=== PATIENT | female | born 1955 ===

== ENCOUNTER → 2020-09-27 10:50 | Outpatient (BNVA) | payer MEDICARE, MEDICAID, SELFPAY | PROVIDERS: PCP Internal Medicine; Visit Provider Internal Medicine Cardiovascular Disease | DX: R00.1 Bradycardia, unspecified (principal); I51.89 Other ill-defined heart diseases; I25.10 Atherosclerotic heart disease of native coronary artery without angina pectoris | CPT/HCPCS: 93005; 99212 ==

== ENCOUNTER 2021-02-05 08:11 | Outpatient (REF) | payer MEDICARE, MEDICAID, SELFPAY ==
[2021-02-11 15:22] LABS: HPV mRNA E6/E7 rflx Not Detected (Not Detected)
== END 2021-02-05 08:12 | disposition home or self-care (01) ==
LOC: HO.LAB 08:11
PROVIDERS: PCP Internal Medicine; Visit Provider Obstetrics & Gynecology
DX: Z01.419 Encounter for gynecological examination (general) (routine) without abnormal findings (principal)
CPT/HCPCS: 87624; 88142

== ENCOUNTER 2021-02-06 17:18 | Outpatient (REF) | payer MEDICARE, MEDICAID, SELFPAY | END 2021-02-06 17:19 | disposition home or self-care (01) | LOC: HO.LNP 17:18 | PROVIDERS: Visit Provider Obstetrics & Gynecology | DX: Z13.89 Encounter for screening for other disorder (principal) ==

== ENCOUNTER 2021-02-27 07:58 | Outpatient (REF) | payer MEDICARE, MEDICAID, SELFPAY ==
--- NOTE | ~2021-02-27 | MM_ITS ---
EXAMINATION: BONE DENSITOMETRY CLINICAL INDICATION: Menopausal and female climacteric states. COMPARISON: Baseline BD dated 07/10/2009. TECHNIQUE: Using a Micro[employer] DXA System (software version: 13.1) manufactured by [employer], dual-energy x-ray absorptiometry was performed of the lumbar spine and left hip. The images are of good technical quality. Summary results are attached. FINDINGS: AP SPINE L1-L4: Current: BMD 1.143 g/cm2, Z-score 0.7, T-score -0.3, normal, 2.1% increase from baseline (<5% change is not significant). Baseline: BMD 1.119 g/cm2. LEFT FEMUR, NECK: Current: BMD 0.770 g/cm2, Z-score -0.8, T-score -1.9, osteopenia. Baseline: BMD 0.890 g/cm2. LEFT FEMUR, TOTAL: Current: BMD 0.965 g/cm2, Z-score 0.4, T-score -0.3, normal, 8.0% decrease from baseline (<5% change is not significant). Baseline: BMD 1.049 g/cm2. IDENTIFIED RISK FACTORS: Rheumatoid arthritis. Secondary osteoporosis (early menopause). HISTORY OF FRACTURE: None listed. MEDICATIONS: None listed. MM/XR DEXA axial skeleton IMPRESSION: 1. DIAGNOSIS: Osteopenia based on the lowest T-score value of -1.9 in the femoral neck applying World Health Organization criteria. 2. 10-YEAR FRACTURE RISK PREDICTION, FRAX: Major osteoporotic fracture (clinical spine, forearm, hip or shoulder) 7.2%. Hip fracture 1.1%. 3. Treatment Recommendations: NOF guidelines recommend consideration for treatment in postmenopausal women and men age 50 and older presenting with the following: -A hip or vertebral (clinical or morphometric) fracture. -T-score less than or equal to -2.5 at the femoral neck or spine after appropriate evaluation to exclude secondary causes. -Low bone mass at the hip or spine and a 10-year fracture probability by FRAX of greater than or equal to 3% for hip fracture or greater than or equal to 20% for major osteoporotic fracture based on the [place] adapted WHO algorithm. 4. Other Recommendations: All treatment decisions require clinical judgment and consideration of individual patient factors, including patient preferences, comorbidities, previous drug use, risk factors not captured in the FRAX model (e.g. frailty, falls, vitamin D deficiency, increased bone turnover, interval significant decline in bone density) and possible under or overestimation of fracture risk by FRAX. Additional medical evaluation for secondary cause of low bone mineral density may be appropriate. FUTURE SCAN RECOMMENDATION: People with diagnosed cases of osteoporosis or at high risk for fracture should have regular bone mineral density tests. For patients eligible for Medicare, routine testing is allowed once every 2 years. The testing frequency can be increased to one year for patients who have rapidly progressing disease, those who are receiving or discontinuing medical therapy to restore bone mass, or have additional risk factors.
== END 2021-02-27 07:59 | disposition home or self-care (01) ==
LOC: HO.MAMMO 07:58
PROVIDERS: Visit Provider Obstetrics & Gynecology
DX: M81.8 Other osteoporosis without current pathological fracture (principal); N95.1 Menopausal and female climacteric states; M06.9 Rheumatoid arthritis, unspecified
CPT/HCPCS: 77080

== ENCOUNTER → 2021-03-25 11:33 | Outpatient (BNVA) | payer MEDICARE, MEDICAID, SELFPAY | PROVIDERS: PCP Internal Medicine; Visit Provider Obstetrics & Gynecology | DX: M85.80 Other specified disorders of bone density and structure, unspecified site (principal) | CPT/HCPCS: Q3014 ==

== ENCOUNTER 2021-08-02 18:10 | Inpatient (IN) | payer MEDICARE, MEDICAID, SELFPAY ==
--- NOTE | ~2021-08-02 | CT_ITS ---
EXAMINATION: CT HEAD WITHOUT CONTRAST (STROKE PROTOCOL) CLINICAL INFORMATION: Stroke protocol. Right leg weakness. COMPARISON: No similar priors. TECHNIQUE: Contiguous axial imaging was performed from the skull base to vertex without intravenous administration of contrast. This CT examination was performed using dose optimization techniques as appropriate, variously including the following: *Automated exposure control *Adjustment of mA and/or kV according to patient size (this includes techniques or standardized protocols for targeted exams where dose is matched to indication/reason for exam; i.e. extremities or head) *Use of iterative reconstruction technique DLP: 790 mGy-cm FINDINGS: There is no intracranial hemorrhage, hematoma, or extra-axial fluid collection. The ventricles are normal in size. There is no hydrocephalus, edema, or mass effect. The alvarado-white matter differentiation appears symmetric. There is no acute infarct or mass lesion. There is mild chronic microangiopathy with mineralization of the basal ganglia. The calvarium appears intact. There is no pneumocephalus or orbital emphysema. The visualized sinuses and middle ears and mastoid air cells show no significant mucosal thickening. There are no air-fluid levels. There are numerous indeterminate small calcifications in both parotid glands. CT/CT head for stroke IMPRESSION: 1. No acute intracranial pathology. 2. Mild chronic microangiopathy. 3. Indeterminate calcifications in both parotid glands. This critical result was discussed with Stormy AGUILERA at 7:12 PM on 08/02/2021. It was ascertained that the content and urgency of the report was understood at the time of direct communication.
--- NOTE | ~2021-08-02 | MR_ITS ---
MRI OF THE BRAIN WITHOUT IV CONTRAST MRA HEAD WITHOUT IV CONTRAST INDICATION: Stroke. COMPARISON: Head CT 08/02/2021. TECHNIQUE: Multiplanar multisequence MR imaging of the brain was obtained without IV contrast. Additionally, a noncontrast MRA of the head was obtained. Vascular post-processing, including 2-dimensional and 3-dimensional reformatted images were created and reviewed on an independent workstation under concurrent physician supervision. Stenoses are graded per criteria similar to NASCET. FINDINGS: MRI BRAIN: There is an acute infarct within the left parasagittal frontal lobe in the left JOSE ALBERTO territory with cytotoxic edema resulting in local cerebral sulcal effacement. There are additional smaller punctate acute to subacute infarcts within the left frontoparietal lobe and the right genu of the corpus callosum. There is also a punctate acute infarct within the left occipital lobe. No evidence of hemorrhagic transformation. There is no hydrocephalus, extra-axial surface collection, or herniation. The major flow voids at the skull base are preserved. The cerebellar tonsils are normally positioned. The cerebellum and brainstem are normal. The craniocervical junction is normal. Osseous marrow signal intensity is homogenous. The visualized soft tissues are unremarkable. MRA HEAD: There are no proximal large vessel occlusions. The distal intracranial arterial vasculature is not included in the field of view of the [id number] MRA of the head. The proximal anterior cerebral arteries are patent. MR/MR head/brain wo con IMPRESSION: - There is an acute infarct within the left parasagittal frontal lobe in the left JOSE [place]BERTO territory with cytotoxic edema resulting in local cerebral sulcal effacement. There are additional smaller punctate acute to subacute infarcts within the left frontoparietal lobe and the right genu of the corpus callosum. There is also a punctate acute infarct within the left occipital lobe. No evidence of hemorrhagic transformation. - There are no proximal large vessel occlusions. The distal intracranial arterial vasculature is not included in the field of view of the [id number] MRA of the head. The proximal anterior cerebral arteries are patent.
--- NOTE | ~2021-08-02 | MR_ITS ---
MRI OF THE BRAIN WITHOUT IV CONTRAST MRA HEAD WITHOUT IV CONTRAST INDICATION: Stroke. COMPARISON: Head CT 08/02/2021. TECHNIQUE: Multiplanar multisequence MR imaging of the brain was obtained without IV contrast. Additionally, a noncontrast MRA of the head was obtained. Vascular post-processing, including 2-dimensional and 3-dimensional reformatted images were created and reviewed on an independent workstation under concurrent physician supervision. Stenoses are graded per criteria similar to NASCET. FINDINGS: MRI BRAIN: There is an acute infarct within the left parasagittal frontal lobe in the left JOSE ALBERTO territory with cytotoxic edema resulting in local cerebral sulcal effacement. There are additional smaller punctate acute to subacute infarcts within the left frontoparietal lobe and the right genu of the corpus callosum. There is also a punctate acute infarct within the left occipital lobe. No evidence of hemorrhagic transformation. There is no hydrocephalus, extra-axial surface collection, or herniation. The major flow voids at the skull base are preserved. The cerebellar tonsils are normally positioned. The cerebellum and brainstem are normal. The craniocervical junction is normal. Osseous marrow signal intensity is homogenous. The visualized soft tissues are unremarkable. MRA HEAD: There are no proximal large vessel occlusions. The distal intracranial arterial vasculature is not included in the field of view of the [id number] MRA of the head. The proximal anterior cerebral arteries are patent. MR/MR angio head wo con IMPRESSION: - There is an acute infarct within the left parasagittal frontal lobe in the left JO[place]BERTO territory with cytotoxic edema resulting in local cerebral sulcal effacement. There are additional smaller punctate acute to subacute infarcts within the left frontoparietal lobe and the right genu of the corpus callosum. There is also a punctate acute infarct within the left occipital lobe. No evidence of hemorrhagic transformation. - There are no proximal large vessel occlusions. The distal intracranial arterial vasculature is not included in the field of view of the [id number] MRA of the head. The proximal anterior cerebral arteries are patent.
[2021-08-02 18:20] VITALS: BP 196/96; PULSE 70; O2SAT 98
--- NOTE | 2021-08-02 18:32 | ED_ITS ---
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 this afternoon. Patient was shopping at a clothing store when her right leg suddenly became weak and she could had to use a shopping cart to lean against to get to her car. She was able to drive home, she was able to get from her car into her house with extreme difficulty. Patient came home, and when she tried to stand she fell because her right leg did not support her, she fell onto her right knee, she did not hit her head, no loss of consciousness. Patient has no strength in her right leg, she cannot lift her leg. She is able to flex her ankle. She has no pain, no numbness or tingling, no headache, no neck pain, no blurry vision, no vertigo, no dizziness, no chest pain, no usha rtness of breath Patient is not on any blood thinners, she is a diabetic with coronary artery disease with coronary stent. Heart failure with diastolic dysfunction, hypertension, sinus Jermain, and osteopenia. No pmh of stroke. Patient does endorse a history of fibromyalgia, and states she got her COVID booster shot yesterday. Onset (ago): hour(s) (3.5) Last Observed Normal: 15:00 Timing confirmed by: family member Location: right leg History of same: No Severity: severe Quality: weak Relieving factors: none Exacerbating factors: none Context: sudden onset On Anticoagulants: No Associated symptoms: denies other symptoms Treatments Prior to Arrival: none Related Data Home Medications Medication Instructions Recorded Confirmed aspirin 81 mg tablet,delayed 81 mg PO DAILY 09/27/20 release (Adult Low Dose Aspirin) dulaglutide 1.5 mg/0.5 mL mg SUBCUT 09/27/20 subcutaneous pen injector insulin degludec 100 unit/mL (3 45 unit SUBCUT BEDTIME 09/27/20 mL) subcutaneous pen lisinopril 40 mg tablet 40 mg PO DAILY 09/27/20 rosuvastatin 40 mg tablet 40 mg PO DAILY 09/27/20 Previous Rx's Medication Instructions Recorded isosorbide mononitrate 60 mg 60 mg PO DAILY #90 tab 11/07/20 tablet,extended release 24 hr metoprolol succinate 50 mg 50 mg PO DAILY 90 Days #90 tab 03/20/21 tablet,extended release 24 hr Allergies Allergy/AdvReac Type Severity Reaction Status Date / Time penicillin V Allergy Unknown rash, hives Verified 02/05/21 08:23 Penicillins [PENICILLINS] Allergy Unknown RASH Verified 02/05/21 08:23 Vinyl Gloves Allergy Unknown rash Verified 02/05/21 08:23 tuberculin, purified protein AdvReac Intermediate RASH Verified 02/05/21 08:23 deriva [TUBERCULIN,PURIF.PROT.DERIV.] Review of Systems Constitutional: Constitutional: Denies body ache(s), Denies chills, Denies fatigue, Denies fever(s), Denies headache(s), Denies malaise and Reports weakness (right leg) Eyes: Eyes: Denies blurry vision, Denies change in vision and Denies diplopia ENT: Denies vertigo, Denies dizziness, Denies headache(s) and Denies sore throat Cardiovascular: Cardiovascular: Denies chest pain, Denies syncope, Denies leg edema, Denies lightheadedness, Denies Loss of Consciousness, Denies palpitations and Denies dyspnea Respiratory: Respiratory: Denies chest congestion, Denies cough and Denies dyspnea Gastrointestinal: Gastrointestinal: Denies abdominal pain, Denies hematochezia, Denies constipation, Denies diarrhea, Denies nausea and Denies vomiting Genitourinary: Genitourinary: Reports no additional female genitourinary complaints Musculoskeletal: Musculoskeletal: Reports muscle weakness and Denies numbness Integumentary/Breasts: Skin/Breast: Denies erythema and Denies rash Neurologic: Denies Abnormal speech present, Denies confusion, Denies vertigo, Denies dizziness, Denies syncope, Denies headache(s), Denies numbness, Denies Sensory deficit (Neuro) and Reports weakness (right leg) Psychiatric: Psychiatric: Denies anxiety, Denies confusion and Denies depression Endocrine: Endocrine: Denies fatigue and Denies palpitations PMFSH Past Medical History Medical History CAD (coronary artery disease) Diastolic dysfunction HTN (hypertension) Sinus bradycardia Tubal ligation evaluation Surgical History Hx of cardiac cath Hx of colonoscopy Stented coronary artery Family History Family History Father Cancer Mother Diabetes Social History Social History Alcohol intake: never Patient Tobacco Use Status: Never used Tobacco Advance Directives: No Advance Directives Information Provided: Yes Physical Exam Vital Signs: Vital Signs: Last Vital Signs Temp 97.9 F 08/02/21 18:38 Pulse 56 08/02/21 18:38 Resp 16 08/02/21 18:38 BP 153/53 H 08/02/21 18:38 Pulse Ox 96 08/02/21 18:38 BMI result Body Mass Index 34.2 Const: General: cooperative, comfortable, no acute distress, well developed, alert and awake; No confusion Nutritional Appearance: obese centrally obese Orientation/consciousness: patient oriented x3 and No confusion Limitations: no limitations and No altered mental status HENMT: Head: Yes normal to inspection and Yes No palpable skull fracture present Ears: hearing grossly normal bilaterally General nose exam: Normal external nose present Face and sinus: Yes normal facial exam and Yes face symmetric Mouth: Normal oral and palatal mucosa present, lip normal, tongue normal and moist mucous membranes Teeth and gingiva: abnormal tooth and associated gingiva (Missing central top incisors) Throat: Yes posterior oropharynx normal Eyes: Conjunctivae: conjunctivae normal Corneas: corneas normal Pupils: Equal, round and reactive pupils present EOM: EOMs intact bilaterally and No Nystagmus present Neck: Neck: Yes normal visual inspection, Yes full ROM, Yes no lymphadenopathy, Yes no meningeal signs, Yes trachea midline and Yes supple Resp: Effort & Inspection: normal respiratory effort and able to speak in complete sentences Auscultation: clear to auscultation bilaterally, no crackles, no rales, no rhonchi and no wheezes Cardio: Rate: regular rate Rhythm: regular rhythm Heart sounds: S1 normal heart sound present and S2 normal heart sound present GI: Inspection: Yes normal to inspection Palpation (GI): Soft to palpation, nontender, no guarding and not rigid Skin: General skin exam: no rashes or lesions noted Neuro: General: patient oriented x3, no meningeal signs, No confusion and Unable to assess gait Cranial nerves: Yes CN's II-XII intact bilaterally, Yes Facial sensation intact/muscles of mastication intact, Yes Equal, round and reactive pupils present, Yes Bilaterally intact EOM present, Yes Nystagmus not present, Yes Normal facial strength present, Yes Midline tongue present, Yes Ability to bilaterally rotate head present, Yes Ability to bilaterally elevate shoulders present and No Nystagmus present Cognition (Neuro): normal cognition Speech: No Abnormal speech present Gait exam (Neuro): Unable to assess gait Motor exam (neuro): Abnormal motor strength present right lower extremity Sensory Exam: No Sensory deficit (Neuro) Deep tendon reflexes (DTR's): Right patellar reflex intensity grade: 1+ and Left patellar reflex intensity grade: 1+ Coordination: [id number] test normal Romberg Test: Negative Pupils: Normal pupillary reactivity/response: bilateral Extrem: Right lower extremity: normal to inspection and normal capillary refill Psych: Appearance: grossly normal and well kempt Mental Status: mental status grossly normal Speech and movement: Normal speech and movement present Affect: normal affect Attitude: cooperative Thought process: Normal thought process present Course Course Course Narrative: 65-year-old Danish speaking female who is a vasculopath, she is diabetic with coronary artery disease, history of heart failure and hypertension, presents with sudden right leg weakness at 3:00 p.m. this afternoon. Patient has an NIH scale of 5, point of care INR 1.1, point of care blood glucose 116. Focal neuro deficit is right leg weakness, patient cannot lift her leg, and cannot resist gravity. CT Head IMPRESSION: 1.? No acute intracranial pathology. 2.? Mild chronic microangiopathy. 3.? Indeterminate calcifications in both parotid glands. ? Patient can plantar flex and dorsiflex her right foot, she cannot lift her right leg. Patient has intact DTRs in her right lower extremity. We got the patient up to see if she could walk, and she can walk with assistance. She got dizzy with standing. It appears that her symptoms are resolving. Reevaluation(s) Reevaluation #1: EKG shows no acute ischemia, troponin is not elevated, CV she shows mild anemia, head CT is as above, urine is infected. Giving antibiotics. Will admit for TIA workup and UTI Reevaluation #2: On re-evaluation, patient can lift her right leg and keep her right leg up for 5 seconds. This is completely different from her initial presentation where she could not hold her leg up at all against gravity Consulted Dr Solis, who stated patient was not a candidate for tPA as her symptoms were resolving, she should get a CTA head and neck tomorrow, I gave patient an aspirin. Patient is being admitted. MDM - Neuro Symptoms/Deficit Lab Data Result diagrams: 08/02/21 19:18 08/02/21 19:18 Labs: Lab Results 08/02/21 08/02/21 08/02/21 Range/Units 19:01 19:01 19:18 WBC 4.0 L (4.8-10.8) X10*3/uL RBC 3.87 L (4.20-5.50) X10*6/uL Hgb 11.1 L (12.0-16.0) g/dl Hct 34.5 L (37.0-47.0) % MCV 89.1 (80.0-98.0) fL MCH 28.7 (27.0-33.0) pg MCHC 32.2 (31.0-35.0) g/dl RDW 12.7 (11.0-16.0) % Plt Count 182 (160-400) X10*3/uL MPV 8.9 L (9.4-12.3) fL Immature Gran % (Auto) 0.3 (0.0-0.4) % Neut % (Auto) 62.0 (45-73) % Lymph % (Auto) 22.1 (20-40) % [place] % (Auto) 13.8 H (2-11) % Eos % (Auto) 0.8 (0-4) % Baso % (Auto) 1.0 (0-2) % Lymph # (Auto) 0.9 L (1.2-4.9) X10*3/uL [place] # (Auto) 0.6 (0.1-1.2) X10*3/uL Eos # (Auto) 0.0 (0.0-0.4) X10*3/uL Baso # (Auto) 0.0 (0.0-0.2) X10*3/uL Abs Immat Gran (auto) 0.01 (0.00-0.03) X10*3/uL Absolute Neuts (auto) 2.5 (2.0-8.3) x10*3/uL Absolute Nucleated RBC 0.000 (0.0-0.012) X10*3/uL Nucleated RBC % (auto) 0.0 (0.0-0.2) /100WBC PT (9.9-13.0) SEC Whole Blood PT 13.7 H (11.1-13.5) sec INR (0.9-1.1) Whole Blood INR 1.1 (0.9-1.1) APTT (24.1-38.0) SEC Sodium (135-145) mmol/L Potassium (3.3-5.1) mmol/L Chloride (96-108) mmol/L Carbon Dioxide (22-29) mmol/L Anion Gap (12-20) BUN (9-16) mg/dL Creatinine (0.5-1.4) mg/dL Estim Creat Clear Calc Estimated GFR POC Glucose 116 H (60-115) mg/dL Random Glucose Calcium (8.4-10.2) mg/dL Phosphorus (2.7-4.5) mg/dL Magnesium (1.6-2.6) mg/dL Total Bilirubin (0.0-1.0) mg/dL AST (5-31) U/L ALT (0-31) U/L Alkaline Phosphatase (39-117) U/L Total Creatine Kinase (26-140) U/L Troponin I High Sens (<3.5-17.0) ng/L Total Protein (6.5-8.0) g/dL Albumin (3.5-5.0) g/dL Urine Color Urine Appearance Urine pH (5.0-8.0) Ur Specific [place] (1.005-1.025) Urine Protein (NEG-TRACE) MG/DL Urine Glucose (UA) (NEG) MG/DL Urine Ketones (NEG) MG/DL Urine Blood (NEG) Urine Nitrite (NEG) Ur Leukocyte Esterase (NEG) Urine RBC (0) /HPF Urine WBC (0-4) /HPF Ur Squamous Epith Cells /LPF Urine Bacteria /LPF COVID-19 (LYUBOV) (Negative) COVID-19 Clin Com 08/02/21 08/02/21 08/02/21 Range/Units 19:18 19:18 19:18 WBC (4.8-10.8) X10*3/uL RBC (4.20-5.50) X10*6/uL Hgb (12.0-16.0) g/dl Hct (37.0-47.0) % MCV (80.0-98.0) fL MCH (27.0-33.0) pg MCHC (31.0-35.0) g/dl RDW (11.0-16.0) % Plt Count (160-400) X10*3/uL MPV (9.4-12.3) fL Immature Gran % (Auto) (0.0-0.4) % Neut % (Auto) (45-73) % Lymph % (Auto) (20-40) % [place] % (Auto) (2-11) % Eos % (Auto) (0-4) % Baso % (Auto) (0-2) % Lymph # (Auto) (1.2-4.9) X10*3/uL [place] # (Auto) (0.1-1.2) X10*3/uL Eos # (Auto) (0.0-0.4) X10*3/uL Baso # (Auto) (0.0-0.2) X10*3/uL Abs Immat Gran (auto) (0.00-0.03) X10*3/uL Absolute Neuts (auto) (2.0-8.3) x10*3/uL Absolute Nucleated RBC (0.0-0.012) X10*3/uL Nucleated RBC % (auto) (0.0-0.2) /100WBC PT 12.6 (9.9-13.0) SEC Whole Blood PT (11.1-13.5) sec INR 1.1 (0.9-1.1) Whole Blood INR (0.9-1.1) APTT 29.3 (24.1-38.0) SEC Sodium (135-145) mmol/L Potassium (3.3-5.1) mmol/L Chloride (96-108) mmol/L Carbon Dioxide (22-29) mmol/L Anion Gap (12-20) BUN (9-16) mg/dL Creatinine (0.5-1.4) mg/dL Estim Creat Clear Calc Estimated GFR POC Glucose (60-115) mg/dL Random Glucose Cancelled Calcium (8.4-10.2) mg/dL Phosphorus 3.7 (2.7-4.5) mg/dL Magnesium 2.3 (1.6-2.6) mg/dL Total Bilirubin (0.0-1.0) mg/dL AST (5-31) U/L ALT (0-31) U/L Alkaline Phosphatase (39-117) U/L Total Creatine Kinase 201 H (26-140) U/L Troponin I High Sens 6.1 (<3.5-17.0) ng/L Total Protein (6.5-8.0) g/dL Albumin (3.5-5.0) g/dL Urine Color Urine Appearance Urine pH (5.0-8.0) Ur Specific [place] (1.005-1.025) Urine Protein (NEG-TRACE) MG/DL Urine Glucose (UA) (NEG) MG/DL Urine Ketones (NEG) MG/DL Urine Blood (NEG) Urine Nitrite (NEG) Ur Leukocyte Esterase (NEG) Urine RBC (0) /HPF Urine WBC (0-4) /HPF Ur Squamous Epith Cells /LPF Urine Bacteria /LPF COVID-19 (LYUBOV) (Negative) COVID-19 Clin Com 08/02/21 08/02/21 08/02/21 Range/Units 19:18 19:26 20:45 WBC (4.8-10.8) X10*3/uL RBC (4.20-5.50) X10*6/uL Hgb (12.0-16.0) g/dl Hct (37.0-47.0) % MCV (80.0-98.0) fL MCH (27.0-33.0) pg MCHC (31.0-35.0) g/dl RDW (11.0-16.0) % Plt Count (160-400) X10*3/uL MPV (9.4-12.3) fL Immature Gran % (Auto) (0.0-0.4) % Neut % (Auto) (45-73) % Lymph % (Auto) (20-40) % [place] % (Auto) (2-11) % Eos % (Auto) (0-4) % Baso % (Auto) (0-2) % Lymph # (Auto) (1.2-4.9) X10*3/uL [place] # (Auto) (0.1-1.2) X10*3/uL Eos # (Auto) (0.0-0.4) X10*3/uL Baso # (Auto) (0.0-0.2) X10*3/uL Abs Immat Gran (auto) (0.00-0.03) X10*3/uL Absolute Neuts (auto) (2.0-8.3) x10*3/uL Absolute Nucleated RBC (0.0-0.012) X10*3/uL Nucleated RBC % (auto) (0.0-0.2) /100WBC PT (9.9-13.0) SEC Whole Blood PT (11.1-13.5) sec INR (0.9-1.1) Whole Blood INR (0.9-1.1) APTT (24.1-38.0) SEC Sodium 138 (135-145) mmol/L Potassium 3.9 (3.3-5.1) mmol/L Chloride 103 (96-108) mmol/L Carbon Dioxide 26 (22-29) mmol/L Anion Gap 13 (12-20) BUN 24 H (9-16) mg/dL Creatinine 1.27 (0.5-1.4) mg/dL Estim Creat Clear Calc 46.3 Estimated GFR 42 POC Glucose (60-115) mg/dL Random Glucose 109 Calcium 8.9 (8.4-10.2) mg/dL Phosphorus (2.7-4.5) mg/dL Magnesium (1.6-2.6) mg/dL Total Bilirubin 0.8 (0.0-1.0) mg/dL AST 18 (5-31) U/L ALT 11 (0-31) U/L Alkaline Phosphatase 66 (39-117) U/L Total Creatine Kinase (26-140) U/L Troponin I High Sens (<3.5-17.0) ng/L Total Protein 7.0 (6.5-8.0) g/dL Albumin 3.8 (3.5-5.0) g/dL Urine Color YELLOW Urine Appearance CLOUDY Urine pH 6.0 (5.0-8.0) Ur Specific [place] 1.020 (1.005-1.025) Urine Protein 2+ H (NEG-TRACE) MG/DL Urine Glucose (UA) NEG (NEG) MG/DL Urine Ketones NEG (NEG) MG/DL Urine Blood 1+ H (NEG) Urine Nitrite NEG (NEG) Ur Leukocyte Esterase 1+ H (NEG) Urine RBC 5-9 H (0) /HPF Urine WBC 30-49 H (0-4) /HPF Ur Squamous Epith Cells 2+ /LPF Urine Bacteria 1+ /LPF COVID-19 (LYUBOV) Negative (Negative) COVID-19 Clin Com See Note NIH Stroke Scale Level of Consciousness: Alert Level of Consciousness Questions: Answers both questions correctly Level of Consciousness Commands: Performs both tasks correctly Best Gaze: Normal Visual: No visual loss Facial Palsy: Normal Motor Arm (Right): No drift Motor Arm (Left): No drift Motor Leg (Right): No movement Motor Leg (Left): No drift Limb Ataxia: Present in one limb Sensory: Normal Best Language: No aphasia Dysarthia: Normal Extinction and Inattention: No abnormality Score: 5 Discharge Plan Discharge Clinical Impression: Acute UTI CVA (cerebral vascular accident) Qualifiers: CVA mechanism: unspecified Qualified Code(s): I63.9 - Cerebral infarction, unspecified Patient Disposition: Admitted As Inpatient
[2021-08-02 18:38] VITALS: BP 153/53; PULSE 56; RESP 16; TEMP 36.6; O2SAT 96; BMI 34.2
--- NOTE | 2021-08-02 18:38 | ECG_ITS ---
Test Reason : ?STROKE Blood Pressure : / mmHG Vent. Rate : 057 BPM Atrial Rate : 057 BPM P-R Int : 158 ms QRS Dur : 088 ms QT Int : 448 ms P-R-T Axes : 045 030 024 degrees QTc Int : 436 ms Sinus bradycardia Otherwise normal ECG When compared to the previous EKG of No significant changes seen Referred By: Stormy Blanco Electronically Signed By:JANETTE VALLE MD
[2021-08-02 19:12] LABS: Prothrombin Time Whole Bld POC 13.7 sec (11.1-13.5); ~PT, ~INR - Anti Coag Clinic 1.1 (0.9-1.1)
[2021-08-02 19:13] LABS: Glucose, Whole Blood 116 mg/dL (60-115)
[2021-08-02 19:27] LABS: MANUAL DIFF FLAG NO
--- NOTE | 2021-08-02 19:27 | PC.NURSE ---
iv placed to [place], LABS DRAWN TO LAB. PT SPEAKING IN FULL SENTENCES AND COMPLAINS OF RIGHT LEG WEAKNESS AND DENIES LEG PAIN. . PT ALERT, RESPIRATIONS EASY AND NOT LABORED. PT ON MONITOR AND AWAITING FURTHER ORDERS.
[2021-08-02 19:28] LABS: Eosinophils Percent Auto 0.8 % (0-4); Hematocrit 34.5 % (37.0-47.0); Hemoglobin 11.1 g/dl (12.0-16.0); Imm Gran Abs Auto 0.01 X10*3/uL (0.00-0.03); Imm Gran Pct Auto 0.3 % (0.0-0.4); Lymphocytes Absolute Auto 0.9 X10*3/uL (1.2-4.9); Lymphocytes Percent Auto 22.1 % (20-40); Mean Corpuscular HGB Conc 32.2 g/dl (31.0-35.0); Mean Corpuscular Hemoglobin 28.7 pg (27.0-33.0); Mean Corpuscular Volume 89.1 fL (80.0-98.0); Mean Platelet Volume 8.9 fL (9.4-12.3); Monocytes Absolute Auto 0.6 X10*3/uL (0.1-1.2); Monocytes Percent Auto 13.8 % (2-11); Neutrophils Absolute Auto 2.5 x10*3/uL (2.0-8.3); Platelet Count 182 X10*3/uL (160-400); Red Blood Count 3.87 X10*6/uL (4.20-5.50); Red Cell Distribution Width 12.7 % (11.0-16.0)
[2021-08-02 19:35] LABS: INTERNATIONAL NORM RATIO 1.1 (0.9-1.1); Prothrombin Time 12.6 SEC (9.9-13.0)
[2021-08-02 19:37] LABS: Partial Thromboplastin Time 29.3 SEC (24.1-38.0)
[2021-08-02 19:43] LABS: COVID-19 Test Negative (Negative)
[2021-08-02 19:45] LABS: Alanine Aminotransferase 11 U/L (0-31); Albumin Level 3.8 g/dL (3.5-5.0); Alkaline Phosphatase 66 U/L (39-117); Anion Gap 13 (12-20); Aspartate Amino Transferase 18 U/L (5-31); Bilirubin Total 0.8 mg/dL (0.0-1.0); Blood Urea Nitrogen 24 mg/dL (9-16); Calcium 8.9 mg/dL (8.4-10.2); Carbon Dioxide 26 mmol/L (22-29); Chloride 103 mmol/L (96-108); Creatinine Clr Calc Pharmacy 46.3; Estimated Glomerular Filt Rate 42; Glucose Random 109 mg/dL (60-115); Potassium 3.9 mmol/L (3.3-5.1); Sodium 138 mmol/L (135-145)
[2021-08-02 19:48] LABS: Troponin-I High Sensitivity 6.1 ng/L (<3.5-17.0)
[2021-08-02 19:50] LABS: Magnesium 2.3 mg/dL (1.6-2.6); Phosphorus 3.7 mg/dL (2.7-4.5)
[2021-08-02 19:55] LABS: Stroke Lab Use COMPLETE
[2021-08-02 20:52] LABS: Appearance Urine CLOUDY; Color Urine YELLOW; Glucose Urine UA NEG (NEG); Leukocyte Esterase Urine 1+ (NEG); Nitrite Urine NEG (NEG); UACC Culture Trigger YES; Urine Blood 1+ (NEG); Urine Ketones NEG (NEG); Urine Protein 2+ MG/DL (NEG-TRACE)
[2021-08-02 21:02] LABS: Bacteria Urine 1+ /LPF; Squamous Epithelial Cell Urine 2+ /LPF; WBC Urine 30-49 /HPF (0-4)
[2021-08-02] MEDS: cefTRIAXone sodium 1 GM in 0.9 % Sodium Chloride 50 ML IV (21:58)
--- NOTE | 2021-08-02 22:54 | PM.IMHP ---
History of Present Illness Date of Service: 08/02/21 Chief Complaint: leg weakness 65-year-old female with past medical history of CAD status post stent, HTN, history of sinus bradycardia, and diastolic heart failure presents to the hospital with complaints of right leg weakness. Patient reports that the weakness started 3:00 p.m. [place] the [place], she felt significant weakness where she could not walk, she was able to get herself to the car by the help of a shopping cart. Never had anything similar to this in the past, she denies any changes in vision, reports no slurred speech or facial droop. She also reports some weakness numbness and tingling in her right upper extremity. She reports that since being in the hospital she continues to have and is not sure if it has improved since she has not been able to walk in the ED. She denies any headache, no change in vision, reports no palpitations, no chest pain, no shortness of breath, no abdominal pain nausea or vomiting, no diarrhea constipation, no urinary symptoms and no lower extremity edema. On arrival to the ED patient hemodynamically stable with no significant abnormal vitals Labs are significant for WBC count of 4.0, hemoglobin of 11.1, hematocrit of 34.5, BUN of 24, creatinine of 1.27 which is around her baseline, UA positive for leukocyte Estrace and WBC, Head CT showed no acute intracranial pathology, mild chronic microangiopathy, intermediate calcification post parotid glands. Neurology was consulted, and recommended no tPA Review of Systems Review of Systems: Yes all other systems are reviewed and are negative [facility] Medical History CAD (coronary artery disease) Diastolic dysfunction HTN (hypertension) Sinus bradycardia Tubal ligation evaluation Family History Father Cancer Mother Diabetes Surgical History Hx of cardiac cath Hx of colonoscopy Stented coronary artery Social History Alcohol intake: never Patient Tobacco Use Status: Never used Tobacco Advance Directives: No Advance Directives Information Provided: Yes Meds Allergies Allergy/AdvReac Type Severity Reaction Status Date / Time penicillin V Allergy Unknown rash, hives Verified 02/05/21 08:23 Penicillins [PENICILLINS] Allergy Unknown RASH Verified 02/05/21 08:23 Vinyl Gloves Allergy Unknown rash Verified 02/05/21 08:23 tuberculin, purified protein AdvReac Intermediate RASH Verified 02/05/21 08:23 deriva [TUBERCULIN,PURIF.PROT.DERIV.] Home Medications Medication Instructions Recorded Confirmed Last Taken Type aspirin 81 mg tablet,delayed 81 mg PO DAILY 09/27/20 08/03/21 08/02/21 History release (Adult Low Dose Aspirin) dulaglutide 1.5 mg/0.5 mL mg SUBCUT 09/27/20 07/31/21 History subcutaneous pen injector insulin degludec 100 unit/mL (3 45 unit SUBCUT BEDTIME 09/27/20 08/03/21 Unknown History mL) subcutaneous pen lisinopril 40 mg tablet 40 mg PO DAILY 09/27/20 08/03/21 08/02/21 History rosuvastatin 40 mg tablet 40 mg PO DAILY 09/27/20 08/03/21 08/02/21 History Physical Exam Vital Signs and Narrative: Vital Signs: Last Vital Signs Temp 97.9 F 08/02/21 18:38 Pulse 56 08/02/21 18:38 Resp 16 08/02/21 18:38 BP 153/53 H 08/02/21 18:38 Pulse Ox 96 08/02/21 18:38 BMI result Body Mass Index 34.2 Const: General: cooperative and no acute distress Orientation/consciousness: patient oriented x3 Eyes: General: appearance normal, both eyes and all related structures Resp: Effort & Inspection: normal respiratory effort Auscultation: clear to auscultation bilaterally Cardio: Rate: regular rate Rhythm: regular rhythm GI: Palpation (GI): Soft to palpation Auscultation: normal bowel sounds Skin: General skin exam: no rashes or lesions noted Neuro: Other: Strength is 4/5 in the right upper and lower extremity Sensation intact, cranial nerves 2-12 intact, General: patient oriented x3 Extrem: General: Yes normal to inspection and Yes no pedal edema Results Labs CBC and Chem 7: 08/02/21 19:18 08/02/21 19:18 Labs: Laboratory Results - last 24 hr 08/02/21 08/02/21 08/02/21 19:01 19:01 19:18 MCV 89.1 MCH 28.7 MCHC 32.2 RDW 12.7 Plt Count 182 MPV 8.9 L Immature Gran % (Auto) 0.3 Neut % (Auto) 62.0 Lymph % (Auto) 22.1 [place] % (Auto) 13.8 H Eos % (Auto) 0.8 Baso % (Auto) 1.0 Lymph # (Auto) 0.9 L [place] # (Auto) 0.6 Eos # (Auto) 0.0 Baso # (Auto) 0.0 Abs Immat Gran (auto) 0.01 Absolute Neuts (auto) 2.5 Absolute Nucleated RBC 0.000 Nucleated RBC % (auto) 0.0 PT Whole Blood PT 13.7 H INR Whole Blood INR 1.1 APTT Anion Gap Estim Creat Clear Calc Estimated GFR POC Glucose 116 H Random Glucose Calcium Phosphorus Magnesium Total Bilirubin AST ALT Alkaline Phosphatase Total Creatine Kinase Troponin I High Sens Total Protein Albumin Urine Color Urine Appearance Urine pH Ur Specific [place] Urine Protein Urine Glucose (UA) Urine Ketones Urine Blood Urine Nitrite Ur Leukocyte Esterase Urine RBC Urine WBC Ur Squamous Epith Cells Urine Bacteria COVID-19 (LYUBOV) [employer] 08/02/21 08/02/21 08/02/21 19:18 19:18 19:18 MCV MCH MCHC RDW Plt Count MPV Immature Gran % (Auto) Neut % (Auto) Lymph % (Auto) [place] % (Auto) Eos % (Auto) Baso % (Auto) Lymph # (Auto) [place] # (Auto) Eos # (Auto) Baso # (Auto) Abs Immat Gran (auto) Absolute Neuts (auto) Absolute Nucleated RBC Nucleated RBC % (auto) PT 12.6 Whole Blood PT INR 1.1 Whole Blood INR APTT 29.3 Anion Gap Estim Creat Clear Calc Estimated GFR POC Glucose Random Glucose Cancelled Calcium Phosphorus 3.7 Magnesium 2.3 Total Bilirubin AST ALT Alkaline Phosphatase Total Creatine Kinase 201 H Troponin I High Sens 6.1 Total Protein Albumin Urine Color Urine Appearance Urine pH Ur Specific [place] Urine Protein Urine Glucose (UA) Urine Ketones Urine Blood Urine Nitrite Ur Leukocyte Esterase Urine RBC Urine WBC Ur Squamous Epith Cells Urine Bacteria COVID-19 (LYUBOV) COVID-19 [employer] 08/02/21 08/02/21 08/02/21 19:18 19:26 20:45 MCV MCH MCHC RDW Plt Count MPV Immature Gran % (Auto) Neut % (Auto) Lymph % (Auto) [place] % (Auto) Eos % (Auto) Baso % (Auto) Lymph # (Auto) [place] # (Auto) Eos # (Auto) Baso # (Auto) Abs Immat Gran (auto) Absolute Neuts (auto) Absolute Nucleated RBC Nucleated RBC % (auto) PT Whole Blood PT INR Whole Blood INR APTT Anion Gap 13 Estim Creat Clear Calc 46.3 Estimated GFR 42 POC Glucose Random Glucose 109 Calcium 8.9 Phosphorus Magnesium Total Bilirubin 0.8 AST 18 ALT 11 Alkaline Phosphatase 66 Total Creatine Kinase Troponin I High Sens Total Protein 7.0 Albumin 3.8 Urine Color YELLOW Urine Appearance CLOUDY Urine pH 6.0 Ur Specific [place] 1.020 Urine Protein 2+ H Urine Glucose (UA) NEG Urine Ketones NEG Urine Blood 1+ H Urine Nitrite NEG Ur Leukocyte Esterase 1+ H Urine RBC 5-9 H Urine WBC 30-49 H Ur Squamous Epith Cells 2+ Urine Bacteria 1+ COVID-19 (LYUBOV) Negative COVID-19 Clin Com See Note Imaging Radiologist's Impressions: Impressions Head CT 08/02/21 19:01 IMPRESSION: 1. No acute intracranial pathology. 2. Mild chronic microangiopathy. 3. Indeterminate calcifications in both parotid glands. This critical result was discussed with Stormy AGUILERA at 7:12 PM on 08/02/2021. It was ascertained that the content and urgency of the report was understood at the time of direct communication. Assessment and Plan (1) CVA (cerebral vascular accident): Qualifiers: CVA mechanism: unspecified Qualified Code(s): I63.9 - Cerebral infarction, unspecified Status: Acute (2) Acute UTI: Status: Acute This is a 65-year-old female with past medical history of coronary artery disease, hypertension who presents to the hospital with right leg weakness # acute CVA - continues to have right-sided weakness - by the time I saw her patient was outside the window for tPA - patient already on aspirin, and high-dose statin - will order MRA head and neck as patient not a candidate for CT angiogram given her poor kidney function - neurology consult - echocardiogram - admit to telemetry - PT OT, stroke education # acute UTI - asymptomatic but given her acute CVA and potential complications will treat with IV antibiotics - follow cultures # hypertension - BP stable not significantly elevated - will continue home medications # coronary artery disease - continue aspirin and metoprolol DVT prophylaxis: Lovenox Quality Stroke Does the patient have a stroke diagnosis?: No VTE Prior VTE?: No VTE Risk Level:: Medical - moderate - high VTE Device Contraindication: Treatment Not Indicated VTE Drug Contraindication: N/A - Med Ordered
[2021-08-02 23:32] VITALS: BP 139/54; PULSE 52; RESP 17; TEMP 36.4; O2SAT 95
[2021-08-02] MEDS: Aspirin 81 MG TAB.CHEW 324 MG PO (23:35)
[2021-08-03 01:57] VITALS: BP 146/70; PULSE 55; RESP 16; TEMP 36.4; O2SAT 94
[2021-08-03 04:28] VITALS: BP 145/62; PULSE 55; RESP 16; TEMP 36.4; O2SAT 100
[2021-08-03 07:08] LABS: MANUAL DIFF FLAG NO
[2021-08-03 07:13] LABS: Basophils Percent Auto 0.7 % (0-2); Eosinophils Absolute Auto 0.1 X10*3/uL (0.0-0.4); Eosinophils Percent Auto 1.3 % (0-4); Hematocrit 37.3 % (37.0-47.0); Hemoglobin 11.8 g/dl (12.0-16.0); Imm Gran Abs Auto 0.02 X10*3/uL (0.00-0.03); Imm Gran Pct Auto 0.4 % (0.0-0.4); Lymphocytes Absolute Auto 0.9 X10*3/uL (1.2-4.9); Lymphocytes Percent Auto 16.3 % (20-40); Mean Corpuscular HGB Conc 31.6 g/dl (31.0-35.0); Mean Corpuscular Hemoglobin 27.8 pg (27.0-33.0); Mean Corpuscular Volume 87.8 fL (80.0-98.0); Mean Platelet Volume 9.4 fL (9.4-12.3); Monocytes Absolute Auto 0.9 X10*3/uL (0.1-1.2); Monocytes Percent Auto 15.8 % (2-11); Neutrophils Absolute Auto 3.7 x10*3/uL (2.0-8.3); Neutrophils Percent Auto 65.5 % (45-73); Platelet Count 185 X10*3/uL (160-400); Red Blood Count 4.25 X10*6/uL (4.20-5.50); Red Cell Distribution Width 12.5 % (11.0-16.0); White Blood Count 5.6 X10*3/uL (4.8-10.8)
[2021-08-03 07:26] LABS: Anion Gap 10 (12-20); Blood Urea Nitrogen 17 mg/dL (9-16); Calcium 9.2 mg/dL (8.4-10.2); Carbon Dioxide 29 mmol/L (22-29); Chloride 106 mmol/L (96-108); Cholesterol 101 mg/dL; Estimated Glomerular Filt Rate 51; Glucose Random 85 mg/dL (60-115); HDL Cholesterol 31 mg/dL; LDL Cholesterol Calculated 47 mg/dl; Potassium 4.2 mmol/L (3.3-5.1); Sodium 141 mmol/L (135-145); Triglycerides 117 mg/dL
[2021-08-03 07:31] LABS: Glucose, Whole Blood 70 mg/dL (60-115)
--- NOTE | 2021-08-03 08:30 | P.PNIM_ITS ---
Subjective Subjective Date of Service: 08/03/21 Interval History: cva, uti Review of Systems Right-sided weakness is improving, no numbness denies any chest pain or shortness of breath or abdominal pain or fever chills or cough or phlegm. Physical Exam Vital Signs: Vital Signs: Last Vital Signs Temp 97.6 F 08/03/21 04:28 Pulse 55 08/03/21 04:28 Resp 16 08/03/21 04:28 BP 145/62 H 08/03/21 04:28 Pulse Ox 100 08/03/21 04:28 BMI result Body Mass Index 34.2 Physical exam: Appearance: Alert.? Oriented X3.? not in distress.? Eyes: Pupils equal, round and reactive to light.? Sclera nonicteric.? ENT: Pharynx normal.? Moist mucous membranes. cvs: rrr, [id number] , no murmur res: clear to auscultation ,no rhonchii or wheezing abd: no rebound or guarding ,nt, bs present. ext pulses present , no cyanosis ,Gait well balanced well coordinated. neuro: axo3 ,Strength right upper and lower extremity improvin Sensation intact, cranial nerves 2-12 intact, General: patient oriented x3 Objective Data Active Medications Acetaminophen (Acetaminophen 325 Mg Tablet) 650 mg PO Q6H PRN PRN Reason: Pain, Mild (Pain Scale 1-3) Docusate Sodium (Docusate Sodium 100 Mg Capsule) 100 mg PO DAILY PRN PRN Reason: Constipation Ondansetron HCl (Ondansetron Hcl 4 Mg/2 Ml Vial) 4 mg IVPUSH Q8H PRN PRN Reason: Nausea and Vomiting Labs CBC & Chem 7: 08/03/21 06:50 08/03/21 06:50 Labs: Laboratory Results - last 24 hr 08/02/21 08/02/21 08/02/21 19:01 19:01 19:18 MCV 89.1 MCH 28.7 MCHC 32.2 RDW 12.7 Plt Count 182 MPV 8.9 L Immature Gran % (Auto) 0.3 Neut % (Auto) 62.0 Lymph % (Auto) 22.1 [place] % (Auto) 13.8 H Eos % (Auto) 0.8 Baso % (Auto) 1.0 Lymph # (Auto) 0.9 L [place] # (Auto) 0.6 Eos # (Auto) 0.0 Baso # (Auto) 0.0 Abs Immat Gran (auto) 0.01 Absolute Neuts (auto) 2.5 Absolute Nucleated RBC 0.000 Nucleated RBC % (auto) 0.0 PT Whole Blood PT 13.7 H INR Whole Blood INR 1.1 APTT Anion Gap Estim Creat Clear Calc Estimated GFR POC Glucose 116 H Random Glucose Calcium Phosphorus Magnesium Total Bilirubin AST ALT Alkaline Phosphatase Total Creatine Kinase Troponin I High Sens Total Protein Albumin Triglycerides Cholesterol LDL Cholesterol, Calc HDL Cholesterol Urine Color Urine Appearance Urine pH Ur Specific [place] Urine Protein Urine Glucose (UA) Urine Ketones Urine Blood Urine Nitrite Ur Leukocyte Esterase Urine RBC Urine WBC Ur Squamous Epith Cells Urine Bacteria COVID-19 (LUYBOV) COVID-19 [employer] 08/02/21 08/02/21 08/02/21 19:18 19:18 19:18 MCV MCH MCHC RDW Plt Count MPV Immature Gran % (Auto) Neut % (Auto) Lymph % (Auto) [place] % (Auto) Eos % (Auto) Baso % (Auto) Lymph # (Auto) [place] # (Auto) Eos # (Auto) Baso # (Auto) Abs Immat Gran (auto) Absolute Neuts (auto) Absolute Nucleated RBC Nucleated RBC % (auto) PT 12.6 Whole Blood PT INR 1.1 Whole Blood INR APTT 29.3 Anion Gap Estim Creat Clear Calc Estimated GFR POC Glucose Random Glucose Cancelled Calcium Phosphorus 3.7 Magnesium 2.3 Total Bilirubin AST ALT Alkaline Phosphatase Total Creatine Kinase 201 H Troponin I High Sens 6.1 Total Protein Albumin Triglycerides Cholesterol LDL Cholesterol, Calc HDL Cholesterol Urine Color Urine Appearance Urine pH Ur Specific [place] Urine Protein Urine Glucose (UA) Urine Ketones Urine Blood Urine Nitrite Ur Leukocyte Esterase Urine RBC Urine WBC Ur Squamous Epith Cells Urine Bacteria COVID-19 (LYUBOV) COVID-19 [employer] [facility] Com 08/02/21 08/02/21 08/02/21 19:18 19:26 20:45 MCV MCH MCHC RDW Plt Count MPV Immature Gran % (Auto) Neut % (Auto) Lymph % (Auto) [place] % (Auto) Eos % (Auto) Baso % (Auto) Lymph # (Auto) [place] # (Auto) Eos # (Auto) Baso # (Auto) Abs Immat Gran (auto) Absolute Neuts (auto) Absolute Nucleated RBC Nucleated RBC % (auto) PT Whole Blood PT INR Whole Blood INR APTT Anion Gap 13 Estim Creat Clear Calc 46.3 Estimated GFR 42 POC Glucose Random Glucose 109 Calcium 8.9 Phosphorus Magnesium Total Bilirubin 0.8 AST 18 ALT 11 Alkaline Phosphatase 66 Total Creatine Kinase Troponin I High Sens Total Protein 7.0 Albumin 3.8 Triglycerides Cholesterol LDL Cholesterol, Calc HDL Cholesterol Urine Color YELLOW Urine Appearance CLOUDY Urine pH 6.0 Ur Specific [place] 1.020 Urine Protein 2+ H Urine Glucose (UA) NEG Urine Ketones NEG Urine Blood 1+ H Urine Nitrite NEG Ur Leukocyte Esterase 1+ H Urine RBC 5-9 H Urine WBC 30-49 H Ur Squamous Epith Cells 2+ Urine Bacteria 1+ COVID-19 (LYUBOV) Negative COVID-19 Clin Com See Note 08/03/21 08/03/21 08/03/21 06:50 06:50 07:17 MCV 87.8 MCH 27.8 MCHC 31.6 RDW 12.5 Plt Count 185 MPV 9.4 Immature Gran % (Auto) 0.4 Neut % (Auto) 65.5 Lymph % (Auto) 16.3 L [place] % (Auto) 15.8 H Eos % (Auto) 1.3 Baso % (Auto) 0.7 Lymph # (Auto) 0.9 L [place] # (Auto) 0.9 Eos # (Auto) 0.1 Baso # (Auto) 0.0 Abs Immat Gran (auto) 0.02 Absolute Neuts (auto) 3.7 Absolute Nucleated RBC 0.000 Nucleated RBC % (auto) 0.0 PT Whole Blood PT INR Whole Blood INR APTT Anion Gap 10 L Estim Creat Clear Calc 55.0 Estimated GFR 51 POC Glucose 70 Random Glucose 85 Calcium 9.2 Phosphorus Magnesium Total Bilirubin AST ALT Alkaline Phosphatase Total Creatine Kinase Troponin I High Sens Total Protein Albumin Triglycerides 117 Cholesterol 101 LDL Cholesterol, Calc 47 HDL Cholesterol 31 Urine Color Urine Appearance Urine pH Ur Specific [place] Urine Protein Urine Glucose (UA) Urine Ketones Urine Blood Urine Nitrite Ur Leukocyte Esterase Urine RBC Urine WBC Ur Squamous Epith Cells Urine Bacteria COVID-19 (LYUBOV) COVID-19 Clin Com Assessment and Plan (1) Acute UTI: Status: Acute (2) CVA (cerebral vascular accident): Status: Acute Assessment and Plan: 65-year-old female with past medical history of coronary artery disease, hypertension who presents to the hospital with right leg weakness 1. possible acute CVA- right-sided weakness imrpoving outside the window for tPA contine on aspirin, and high-dose statin Mri in am, echo neurology consult- PT OT, stroke education LDL: 101 , TG;101,LDL:47, hdl:31. 2. acute UTI -? asymptomatic but given her acute CVA cotninue iv antibiotics - follow cultures 3. hypertension - BP stable not significantly elevated - will continue home medications 4.coronary artery disease - continue aspirin and metoprolol DVT prophylaxis: Lovenox Quality Stroke Does the patient have a stroke diagnosis?: No VTE Prior VTE?: No VTE Risk Level:: Medical - moderate - high VTE Device Contraindication: Treatment Not Indicated VTE Drug Contraindication: N/A - Med Ordered
[2021-08-03 09:26] VITALS: BP 144/49; PULSE 59; RESP 18; TEMP 36.7; O2SAT 98
--- NOTE | 2021-08-03 09:50 | PHA.MEDREC ---
MED REC COMPLETE, PATIENT DOES NOT TAKE HER INSULIN EVERY DAY, SHE STATES SHE INLY USES IF BLOOD SUGAR ARE OVER 166 Pharmacy Consult ? Medication Reconciliation Pharmacy has completed the medication reconciliation.
[2021-08-03 11:28] VITALS: BP 126/93; PULSE 64
[2021-08-03 11:29] VITALS: BP 126/93; PULSE 64
[2021-08-03] MEDS: Heparin Sodium,Porcine 5,000 UNIT/ML VIAL 5000 UNIT SUBCUT (11:29)
[2021-08-03] MEDS: Aspirin Enteric Coated 81 MG TABLET.DR PO (11:29)
[2021-08-03] MEDS: Isosorbide Mononitrate 60 MG TAB.ER.24H PO (11:29)
[2021-08-03 11:57] LABS: Glucose, Whole Blood 96 mg/dL (60-115)
--- NOTE | 2021-08-03 12:33 | MHC.STROKE ---
08/02/21 ARRIVED VIA EMS AT 1810, NO STROKE ALERT , ONSET OF RIGHT LEG WEAKNESS AT 1500. ED MD DISCUSSED CASE WITH NEUROLOGIST SENIOR PRODUCT ANALYST AND NO TPA (ALTEPLASE) DUE TO IMPROVING SYMPTOMS AND NON-DISABLING SYMPTOMS. CT HEAD DONE, NO BLEED, NO CTA DUE TO RENAL FUNCTION (SEE HOSPITALIST NOTE). SHE PASSED SWALLOW SCREEN AT 2335 PRIOR TO PO ASPIRIN. RECOMMEND MRI/MRA HEAD. CAROTID US ALSO. ALL QUALITY STROKE MEASURES MET. PT/OT PENDING. I WILL CONTINUE TO FOLLOW.
[2021-08-03 17:14] LABS: Glucose, Whole Blood 110 mg/dL (60-115)
--- NOTE | 2021-08-03 19:45 | PC.NURSE ---
Assuemd care of pt Pt resting on stretcher, talking to family memeber on the phone No apparent distress Will continue to monitor
[2021-08-03 22:21] VITALS: BP 140/56; PULSE 58; RESP 16; TEMP 36.8; O2SAT 99
[2021-08-03 22:23] LABS: Glucose, Whole Blood 105 mg/dL (60-115)
[2021-08-04] VITALS (10 sets, daily range): BP systolic 108–173; BP diastolic 50–74; PULSE 64–109; RESP 16–18; TEMP 36.2–37.3; O2SAT 92–100
--- NOTE | 2021-08-04 00:04 | PC.NURSE ---
Pt resting on stretche with eyes closed Breathing even and unlabored No apparent distress Will continue to monitor
--- NOTE | 2021-08-04 00:52 | CA_ITS ---
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 The visually estimated ejection fraction is between 65-70%. - There is moderately increased left ventricular wall thickness. - There is moderate mitral annular calcification. - Bubble study negative during rest and valsalva. Findings Procedure Information Contrast agent, definity, is being given per protocol without apparent complications. Left Ventricle Normal left ventricular cavity size. There is moderately increased left ventricular wall thickness. The left ventricular systolic function is normal. The visually estimated ejection fraction is between 65-70%. There is no evidence of regional wall motion abnormalities. E/E prime ratio is between 8 and 15 consistent with indeterminate filling pressures. Evidence suggests grade I (mild) diastolic dysfunction. Right Ventricle Normal right ventricular cavity size and systolic function. Atria The left atrium is mildly dilated. The right atrium is normal in size. Bubble study negative during rest and valsalva. Aortic Valve There is a normal trileaflet aortic valve. There is no aortic valve stenosis. Trace to mild aortic regurgitation. Mitral Valve There is moderate mitral annular calcification. There is trace mitral valve regurgitation. There is no mitral valve stenosis. Pulmonic Valve The pulmonic valve was not well visualized. Tricuspid Valve There is trace tricuspid valve regurgitation. The pulmonary artery systolic pressure is normal. Great Vessels The aortic annulus, sinuses of valsalva, and asc aorta are normal in size. Venous The inferior vena cava is normal in size and collapses greater than 50% with inspiration. Pericardium/Pleural There is no evidence of pericardial effusion. Prior Study Comparison No significant change compared to prior study dated: 08/28/2019. Measurements 2D Linear Measurements IVSd: 1.27 0.6-0.9/0.6-1.0 cm LVIDd: 4.29 3.9-5.3/4.2-5.9 cm LVIDd Index: 2.26 2.4-3.2/2.2-3.1 cm/m2 LVIDs: 2.49 2.0-3.6 cm LVPWd: 1.22 0.7-1.1 cm Ao Root: 3.20 2.1-3.5 cm LA Diam: 3.90 2.7-3.8/3.0-4.0 cm LAIDs Index: 2.05 1.5-2.3 cm/m2 LV Mass: 242.02 67-162/88-224 g LV Mass Index: 127.38 43-95/49-115 g/m2 LVOT Diam: 2.00 3.0+(-)1.3 cm Mitral Valve MV VTI: 0.38 MV Pk Marc: 1.33 MV Mn Marc: 0.63 MV Pk Grad: 7.00 MV Mn Grad: 2.00 MV Pk E: 0.81 MV PK A: 1.17 MV Decel Time: 243.00 E/A: 0.70 E'Lateral: 6.85 E'Medial: 5.66 E/E' Med: 14.20 E/E' Lat: 11.80 PHT: 71.00 MVA PHT: 3.10 MVA Continuity: 1.96 Decel [place]: 3.31 Aortic Valve AoV Pk Marc: 1.39 AoV Mn Marc: 1.00 AoV VTI: 0.32 AoV Pk Grad: 8.00 Aov Mn Grad: 4.00 STEVIE Cont.VTI: 2.32 LVOT LVOT Pk Marc: 0.95 LVOT Mn Marc: 0.54 LVOT VTI: 0.24 LVOT Pk Grad: 4.00 LVOT Mn Grad: 1.00 LVOT Diam: 2.00 LVOT Area: 3.14 Diastolic Function MV Pk E: 0.81 MV Pk A: 1.17 E/A: 0.70 E'Medial: 5.66 E/E' Med: 14.20 E' Laterial: 6.85 E/E' Lat: 11.80 Right Ventricle TAPSE (mm): 26.00 TVS' Marc: 17.00 Tricuspid Valve TR Pk Marc: 2.28 TR Pk Grad: 21.00 Great Vessels Aorta Ao Root-2D: 3.20 2.0-3.7 cm Ao Asc: 3.40 2.1-3.4 cm Pulmonary Valve PV Pk Marc: 0.88 Peak PV Grad: 3.00 Updated in Other Vendor System with Status of Final Bridger Clark MD electronically signed on 08/04/2021 4:33:02 PM with status of Final
[2021-08-04] MEDS: Heparin Sodium,Porcine 5,000 UNIT/ML VIAL 5000 UNIT SUBCUT ×3 (05:01→21:47)
--- NOTE | 2021-08-04 07:41 | PC.NURSE ---
As per MD Morrison, pt may go to MRI without thermostatic controls supervisor. oil bay technician at bedside now for stat MRI.
--- NOTE | 2021-08-04 08:22 | PM.DS ---
DS: Providers Provider Date of Service: 08/04/21 Date of admission: 08/02/21 22:54 Primary care physician: Unknown Physician Consults: 08/03/21 00:52 Consult to Neurology Routine Consulting Provider: [facility] Reason for consultation: stroke Has provider been notified: No DS: Diagnosis Discharge Diagnosis (1) Acute UTI: Status: Acute (2) CVA (cerebral vascular accident): Status: Acute DS: Summary Hospital Course Hospital Course: Chief Complaint: leg weakness 65-year-old female with past medical history of CAD status post stent, HTN, history of sinus bradycardia, and diastolic heart failure presents to the hospital with complaints of right leg weakness.? Patient reports that the weakness started 3:00 p.m. [place] the [place], she felt significant weakness where she could not walk, she was able to get herself to the car by the help of a shopping cart.? Never had anything similar to this in the past, she denies any changes in vision, reports no slurred speech or facial droop.? She also reports some weakness numbness and tingling in her right upper extremity.? She reports that since being in the hospital she continues to have and is not sure if it has improved since she has not been able to walk in the ED. She denies any headache, no change in vision, reports no palpitations, no chest pain, no shortness of breath, no abdominal pain nausea or vomiting, no diarrhea constipation, no urinary symptoms and no lower extremity edema. On arrival to the ED patient hemodynamically stable with no significant abnormal vitals Labs are significant for WBC count of 4.0, hemoglobin of 11.1, hematocrit of 34.5, BUN of 24, creatinine of 1.27 which is around her baseline, UA positive for leukocyte Estrace and WBC, Head CT showed no acute intracranial pathology, mild chronic microangiopathy, intermediate calcification post parotid glands. Neurology was consulted, and recommended no tPA Hospital course: Acute te CVA with right leg weakness. MRI showed an acute infarct within the left parasagittal frontal lobe in the left JOSE ALBERTO territory with cytotoxic edema resulting in local cerebral sulcal effacement. Neurology consult- suggesting central source with embolism,Cardiac monitoring for atrial fibrillation.??Sugar and blood pressure control. The carotid arteries showed no hemodynamically significant stenosis. Continue aspirin and? rosuvastatin. Echo shows no PFO on intracardiac clot. No AFIB on monitor. Overall doing better with gait, amubulating with cane. PT is recommendding home PT UTI--negative culture, no symptoms, no abx at this time HTN--BP not at goal, she has been getting half of home dose of Lisinopril, resume at 40 mg daily CAD - continue aspirin and metoprolol HLS--rosuvostatin will be changed to Lipitor 80 Time Spent with Patient Time attestation: Total time spent providing and/or coordinating discharge services: Discharge coordination time: Greater than 30 minutes Quality: Stroke Does the patient have a stroke diagnosis?: No Physical Exam Vital Signs: Vital Signs: Last Vital Signs Temp 98.1 F 08/04/21 06:10 Pulse 64 08/04/21 06:10 Resp 16 08/04/21 06:10 BP 140/56 H 08/04/21 06:10 Pulse Ox 96 08/04/21 06:10 BMI result Body Mass Index 34.2 ?Appearance: Alert.? Oriented X3.? not in distress.? Eyes: Pupils equal, round and reactive to light.? Sclera nonicteric.? ENT: Pharynx normal.? Moist mucous membranes. cvs: rrr, [id number] , no murmur res: clear to auscultation ,no rhonchii or wheezing abd: no rebound or guarding ,nt, bs present. ext pulses present , no cyanosis . neuro: axo3 ,Strength? right upper and lower extremity improvin Sensation intact, cranial nerves 2-12 intact,? General: patient oriented x3 DS: Data Data Completed and Pending Labs on day of discharge: Laboratory Results - last 24 hr 08/03/21 08/03/21 08/03/21 11:48 17:11 22:17 POC Glucose 96 110 105 Preliminary micro results at discharge 08/02/21 20:52 Urine Culture - Preliminary Urine clean catch - Urine alvarado top No growth to date. Additional Comments Additional comments: ?CT/CT head for stroke IMPRESSION: 1.? No acute intracranial pathology. 2.? Mild chronic microangiopathy. 3.? Indeterminate calcifications in both parotid glands. MRA/MRI: Discharge Plan Discharge Anticipated Discharge Date/Time: 08/05/21 09:58 Patient Disposition: Home, Self-Care Discharge Diagnosis: possible cva ,uti Referrals: ernesto [Other] - 1 Week Physician,Unknown J [Primary Care Provider] - 1 Week Discharge Medications: New atorvastatin 80 mg Tablet 80 mg PO DAILY Qty: 30 RF: 0 Continued isosorbide mononitrate 60 mg tablet extended release 24 hr 60 mg PO DAILY Qty: 90 RF: 3 metoprolol succinate 25 mg Tablet Extended Release 24 Hr 25 mg PO DAILY RF: 0 dulaglutide 1.5 mg/0.5 mL pen injector 1.5 mg subcut TH@1000 RF: 0 insulin degludec 100 unit/mL (3 mL) insulin pen 40 unit subcut BEDTIME RF: 0 lisinopril 40 mg tablet 40 mg PO DAILY RF: 0 aspirin [Adult Low Dose Aspirin] 81 mg tablet,delayed release (DR/EC) 81 mg PO DAILY RF: 0 Discontinued rosuvastatin 40 mg tablet 40 mg PO DAILY RF: 0 Discharge Orders: Discharge Order (Routine); Ordered 08/05/21 Ordered By: Richie Ortega Diet: advance to usual diet, diabetic diet, low fat, low cholesterol and low salt diet Activity on Discharge: As tolerated Stand Alone Forms: Patient Portal Discharge page Care Plan Goals: patient came to the hospital because of right-sided weakness -possible CVA, seen by neuro and MRI of head was done: Patient is already on aspirin, statin, seen by PT OT and recommends home with PT Health Concerns: As above. Plan of Treatment: As above. Assessment: As above. Discharge Date/Time: 08/05/21 11:57
--- NOTE | 2021-08-04 08:54 | PC.NURSE ---
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 No neuro deficits noted. Normal heart sounds, lungs clear. NSR. Pt able to ambulate with no difficulties. Physical Therapy at bedside.
[2021-08-04] MEDS: Isosorbide Mononitrate 60 MG TAB.ER.24H PO (09:01)
[2021-08-04] MEDS: Aspirin Enteric Coated 81 MG TABLET.DR PO (09:02)
[2021-08-04] MEDS: Atorvastatin Calcium 80 MG TABLET PO (09:02)
--- NOTE | 2021-08-04 09:55 | P.CNNE_ITS ---
History of Present Illness Data of Consult Service Date: 08/03/21 Primary Care Provider: Unknown Physician HPI Reason for consult: Right leg weakness This is a 65-year-old female with past medical history of CAD status post stent, HTN, sinus bradycardia, and diastolic heart failure presents to the hospital with complaints of right leg weakness.? Patient reports that the weakness started 3:00 p.m. while she was in the mall, she felt significant weakness where she could not walk, she was able to get herself to the car by the help of a shopping cart.? She drove home and have told the leg weakness got worse, so she was brought to the hospital. She has no previous history of stroke or anything similar to this in the past, she denies any changes in vision, reports no slurred speech or facial droop.? She also reports some weakness numbness and tingling in her right upper extremity.? She reports that since being in the hospital she continues to have and is not sure if it has improved since she has not been able to walk in the ED.She had a CT scan of the head in the emergency room which was negative. I was contacted 6 hours after the onset of symptoms. By that time her deficits had improved and the PA, who called me said that there was no detectable neurological deficit and she was able to lift her leg up against gravity and against resistance. Based on minimal neurological findings at the time, progressive improvement and six-hours since the onset, I recommended that TPA not be used, and she be admitted for further workup. She's had an MRA and MRI, which showed no major occlusive disease in the carotids. There is a left paramedian anterior cerebral distribution infarct in the left hemisphere and smaller acute punctate infarcts in the left parietal region left occipital and right internal capsule, suggesting embolic phenomena. Review of Systems Review of Systems: Right-sided weakness is improving, no numbness denies any chest pain or shortness of breath or abdominal pain or fever chills or cough or phlegm. Yes all other systems are reviewed and are negative Constitutional: Constitutional: Denies body ache(s), Denies chills, Denies fatigue, Denies fever(s), Denies headache(s), Denies malaise and Reports weakness (right leg) Eyes: Eyes: Denies blurry vision, Denies change in vision and Denies diplopia ENT: Denies vertigo, Denies dizziness, Denies headache(s) and Denies sore throat Cardiovascular: Cardiovascular: Denies chest pain, Denies syncope, Denies leg edema, Denies lightheadedness, Denies Loss of Consciousness, Denies palpitations and Denies dyspnea Respiratory: Respiratory: Denies chest congestion, Denies cough and Denies dyspnea Gastrointestinal: Gastrointestinal: Denies abdominal pain, Denies hematochezia, Denies constipation, Denies diarrhea, Denies nausea and Denies vomiting Musculoskeletal: Musculoskeletal: Reports muscle weakness and Denies numbness Integumentary/Breasts: Skin/Breast: Denies erythema and Denies rash Neurologic: Denies Abnormal speech present, Denies confusion, Denies vertigo, Denies dizziness, Denies syncope, Denies headache(s), Denies numbness, Denies Sensory deficit (Neuro) and Reports weakness (right leg) Psychiatric: Psychiatric: Denies anxiety, Denies confusion and Denies depression Endocrine: Endocrine: Denies fatigue and Denies palpitations PMFSH Past Medical History Medical History CAD (coronary artery disease) Diastolic dysfunction HTN (hypertension) Sinus bradycardia Tubal ligation evaluation Family History Family History Father Cancer Mother Diabetes Surgical History Surgical History Hx of cardiac cath Hx of colonoscopy Stented coronary artery Social History Social History Alcohol intake: never Patient Tobacco Use Status: Never used Tobacco Meds Allergies Allergy/AdvReac Type Severity Reaction Status Date / Time penicillin V Allergy Unknown rash, hives Verified 02/05/21 08:23 Penicillins [PENICILLINS] Allergy Unknown RASH Verified 02/05/21 08:23 Vinyl Gloves Allergy Unknown rash Verified 02/05/21 08:23 tuberculin, purified protein AdvReac Intermediate RASH Verified 02/05/21 08:23 deriva [TUBERCULIN,PURIF.PROT.DERIV.] Active Medications: Current Medications Acetaminophen (Acetaminophen 325 Mg Tablet) 650 mg PO Q6H PRN PRN Reason: Pain, Mild (Pain Scale 1-3) Aspirin (Aspirin Enteric Coated 81 Mg Tablet.Dr) 81 mg PO DAILY [facility] Last Admin: 08/04/21 09:02 Dose: 81 mg Documented by: Atorvastatin Calcium (Atorvastatin Calcium 80 Mg Tablet) 80 mg PO DAILY [facility] Last Admin: 08/04/21 09:02 Dose: 80 mg Documented by: Docusate Sodium (Docusate Sodium 100 Mg Capsule) 100 mg PO DAILY PRN PRN Reason: Constipation Heparin Sodium (Porcine) (Heparin Sodium,Porcine 5,000 Unit/Ml Vial) 5,000 unit SUBCUT Q8H [facility] Last Admin: 08/04/21 05:01 Dose: 5,000 unit Documented by: Insulin Glargine (Insulin Glargine,Hum.Rec.Anlog 100 Unit/Ml 10 Ml Vial) 21 unit SUBCUT BEDTIME [facility] Last Admin: 08/03/21 22:24 Dose: Not Given Documented by: Isosorbide Mononitrate (Isosorbide Mononitrate 60 Mg Tab.Er.24h) 60 mg PO DAILY [facility]; Protocol Last Admin: 08/04/21 09:01 Dose: 60 mg Documented by: Ondansetron HCl (Ondansetron Hcl 4 Mg/2 Ml Vial) 4 mg IVPUSH Q8H PRN PRN Reason: Nausea and Vomiting Home Medications Medication Instructions Recorded Confirmed Last Taken Type aspirin 81 mg tablet,delayed 81 mg PO DAILY 09/27/20 08/03/21 08/02/21 History release (Adult Low Dose Aspirin) dulaglutide 1.5 mg/0.5 mL 1.5 mg SUBCUT TH@1000 09/27/20 08/03/21 07/31/21 History subcutaneous pen injector insulin degludec 100 unit/mL (3 40 unit SUBCUT BEDTIME 09/27/20 08/03/21 Unknown History mL) subcutaneous pen lisinopril 40 mg tablet 40 mg PO DAILY 09/27/20 08/03/21 08/02/21 History rosuvastatin 40 mg tablet 40 mg PO DAILY 09/27/20 08/03/21 08/02/21 History metoprolol succinate 25 mg 25 mg PO DAILY 08/03/21 08/03/21 Unknown History tablet,extended release 24 hr Physical Exam Vital Signs: Vital Signs: Last Vital Signs Temp 97.2 F 08/04/21 09:04 Pulse 69 08/04/21 09:28 Resp 16 08/04/21 09:04 BP 167/59 H 08/04/21 09:28 Pulse Ox 96 08/04/21 09:28 BMI result Body Mass Index 34.2 Const: General: cooperative, comfortable, no acute distress, well developed, alert and awake; No confusion Nutritional Appearance: obese centrally obese Orientation/consciousness: patient oriented x3 and No confusion Limitations: no limitations and No altered mental status HENMT: Head: Yes normal to inspection and Yes No palpable skull fracture present Ears: hearing grossly normal bilaterally General nose exam: Normal external nose present Face and sinus: Yes normal facial exam and Yes face symmetric Mouth: Normal oral and palatal mucosa present, lip normal, tongue normal and moist mucous membranes Teeth and gingiva: abnormal tooth and associated gingiva (Missing central top incisors) Throat: Yes posterior oropharynx normal Eyes: General: appearance normal, both eyes and all related structures Conjunctivae: conjunctivae normal Corneas: corneas normal Pupils: Equal, round and reactive pupils present EOM: EOMs intact bilaterally and No Nystagmus present Neck: Neck: Yes normal visual inspection, Yes full ROM, Yes no lymphadenopathy, Yes no meningeal signs, Yes trachea midline and Yes supple Resp: Effort & Inspection: normal respiratory effort and able to speak in complete sentences Auscultation: clear to auscultation bilaterally, no crackles, no rales, no rhonchi and no wheezes Cardio: Rate: regular rate Rhythm: regular rhythm Heart sounds: S1 normal heart sound present and S2 normal heart sound present GI: Inspection: Yes normal to inspection Palpation (GI): Soft to palpation, nontender, no guarding and not rigid Auscultation: normal bowel sounds Skin: General skin exam: no rashes or lesions noted Neuro: Other: She was alert, pleasant and cooperative with normal cranial nerves and visual avitia. She had a very subtle pronation drift of the right upper extremity with the drafting detailer strength, 5 minus/5. Proximal strength in the triceps and deltoid 5-5. Right lower extremity hip flexor was 5-5, but distal strength was normal. Reflexes symmetrically hypoactive. Plantar responses were flexor General: patient oriented x3, no meningeal signs, No confusion and Unable to assess gait Cranial nerves: Yes CN's II-XII intact bilaterally, Yes Facial sensation intact/muscles of mastication intact, Yes Equal, round and reactive pupils present, Yes Bilaterally intact EOM present, Yes Nystagmus not present, Yes Normal facial strength present, Yes Midline tongue present, Yes Ability to bilaterally rotate head present, Yes Ability to bilaterally elevate shoulders present and No Nystagmus present Cognition (Neuro): normal cognition Speech: No Abnormal speech present Gait exam (Neuro): Unable to assess gait Motor exam (neuro): Abnormal motor strength present Sensory Exam: No Sensory deficit (Neuro) Deep tendon reflexes (DTR's): Right patellar reflex intensity grade: 1+ and Left patellar reflex intensity grade: 1+ Coordination: [id number] test normal Romberg Test: Negative Pupils: Normal pupillary reactivity/response: bilateral Extrem: General: Yes normal to inspection and Yes no pedal edema Right low er extremity: normal to inspection and normal capillary refill Psych: Appearance: grossly normal and well kempt Mental Status: mental status grossly normal Speech and movement: Normal speech and movement present Affect: normal affect Attitude: cooperative Thought process: Normal thought process present Results Labs CBC & Chem 7: 08/03/21 06:50 08/03/21 06:50 Microbiology Microbiology Results: Microbiology 08/02/21 20:52 Urine clean catch - Urine alvarado top Urine Culture - Preliminary No growth to date. Assessment and Plan (1) CVA (cerebral vascular accident): Qualifiers: CVA mechanism: unspecified Qualified Code(s): I63.9 - Cerebral infarction, unspecified Status: Acute She's had a small acute stroke in the left anterior cerebral distribution in what appeared to be small embolic strokes in the left parietal and occipital and right internal capsule area suggesting central source with embolism. The carotid arteries showed no hemodynamically significant stenosis. He recommendation at this time would be echocardiogram with bubble study to rule out PFO. Cardiac monitoring for atrial fibrillation. Continue aspirin for now. May need very short-term rehabilitation, PT, OT evaluation. Sugar and blood pressure control. Continue rosuvastatin (2) Acute UTI: Status: Acute 65-year-old female with past medical history of coronary artery disease, hypertension who presents to the hospital with right leg weakness 1. possible acute CVA- right-sided weakness imrpoving outside the window for tPA contine on aspirin, and high-dose statin Mri in am, echo neurology consult- PT OT, stroke education LDL: 101 , TG;101,LDL:47, hdl:31. 2. acute UTI -? asymptomatic but given her acute CVA cotninue iv antibiotics - follow cultures 3. hypertension - BP stable not significantly elevated - will continue home medications 4.coronary artery disease - continue aspirin and metoprolol DVT prophylaxis: Lovenox Procedures Date of Service Date of Service: 08/03/21
[2021-08-04 10:11] LABS: Glucose, Whole Blood 105 mg/dL (60-115)
[2021-08-04 11:03] LABS: Glucose, Whole Blood 114 mg/dL (60-115)
--- NOTE | 2021-08-04 11:31 | MHC.STROKE ---
I MET WITH THE PATIENT TODAY WITH THE RN INFORMATICS PRESENT. WE REVIEWED HER ONSET OF SYMPTOMS. SHE GOT UP ON 08/02/21 AND FELT FINE, COOKED SOME FOOD AND WENT TO THE MALL AT 1430. AROUND 1500 SHE DEVELOPED SUDDEN ONSET OF RIGHT LEG WEAKNESS, SHE WENT HOME THEN CALLED THE AMBULANCE. SHE HAS A SIGNIFICANT CARDIAC HISTORY AND + FAMILY HISTORY FOR STROKE. WE REVIEWED HER RISK FACTORS, HER BP, MEDICATIONS AND LIPID PANEL. I COMMUNICATED WITH PT AND SHE IS RECOMMENDING ACUTE REHAB. I DISCUSSED THE CASE WITH DR FUENTES, HE IS RECOMMENDING AN ECHO WITH BUBBLE STUDY TO R/O PFO, HE IS ALSO RECOMMENDING A CARDIOLOGY CONSULT FOR POSSIBLE ANTICOAGULATION, OR INTERNAL CONFERENCE COORDINATOR FOR POSSIBLE AFIB. I REVIEWED HER DIAGNOSIS, ANSWERED HER QUESTIONS, GAVE HER A SCREEN SHOT OF THE MRI WITH THE EMBOLIC STROKES. THIS CASE WAS ALSO DISCUSSED WITH DR DIANE AND NURSES THAT HAVE HER TODAY. I WILL CONTINUE TO FOLLOW.
--- NOTE | 2021-08-04 12:25 | HO.PM.IMPN ---
Subjective Subjective Date of Service: 08/04/21 Interval History: cva , htn Review of Systems still has right sided weakness -seems improving Physical Exam Vital Signs: Vital Signs: Last Vital Signs Temp 98.7 F 08/04/21 11:28 Pulse 70 08/04/21 11:28 Resp 18 08/04/21 11:28 BP 173/74 H 08/04/21 11:28 Pulse Ox 98 08/04/21 11:28 BMI result Body Mass Index 34.2 Objective Data Active Medications Acetaminophen (Acetaminophen 325 Mg Tablet) 650 mg PO Q6H PRN PRN Reason: Pain, Mild (Pain Scale 1-3) Aspirin (Aspirin Enteric Coated 81 Mg Tablet.) 81 mg PO DAILY [facility] Last Admin: 08/04/21 09:02 Dose: 81 mg Documented by: MATT Atorvastatin Calcium (Atorvastatin Calcium 80 Mg Tablet) 80 mg PO DAILY [facility] Last Admin: 08/04/21 09:02 Dose: 80 mg Documented by: MATT Docusate Sodium (Docusate Sodium 100 Mg Capsule) 100 mg PO DAILY PRN PRN Reason: Constipation Heparin Sodium (Porcine) (Heparin Sodium,Porcine 5,000 Unit/Ml Vial) 5,000 unit SUBCUT Q8H [facility] Last Admin: 08/04/21 05:01 Dose: 5,000 unit Documented by: EMILIANO Insulin Glargine (Insulin Glargine,Hum.Rec.Anlog 100 Unit/Ml 10 Ml Vial) 21 unit SUBCUT BEDTIME [facility] Last Admin: 08/03/21 22:24 Dose: Not Given Documented by: EMILIANO Non-Admin Reason: BG 105 Isosorbide Mononitrate (Isosorbide Mononitrate 60 Mg Tab.Er.24h) 60 mg PO DAILY [facility]; Protocol Last Admin: 08/04/21 09:01 Dose: 60 mg Documented by: MATT Ondansetron HCl (Ondansetron Hcl 4 Mg/2 Ml Vial) 4 mg IVPUSH Q8H PRN PRN Reason: Nausea and Vomiting Labs CBC & Chem 7: 08/03/21 06:50 08/03/21 06:50 Labs: Laboratory Results - last 24 hr 08/03/21 08/03/21 08/04/21 17:11 22:17 10:08 POC Glucose 110 105 105 08/04/21 10:57 POC Glucose 114 Microbiology Microbiology Results: Microbiology 08/02/21 20:52 Urine Culture - Final Urine clean catch - Urine alvarado top Assessment and Plan (1) Acute UTI: Status: Acute (2) CVA (cerebral vascular accident): Status: Acute Assessment and Plan: 65-year-old female with past medical history of coronary artery disease, hypertension who presents to the hospital with right leg weakness 1. possible? acute CVA- right-sided weakness imrpoving ?contine? on aspirin, and high-dose statin Mri shows:She's had a small acute stroke in the left anterior cerebral distribution in what appeared to be small embolic strokes in the left parietal and occipital and right internal capsule area . ?neurology consult- suggesting central source with embolism,Cardiac monitoring for atrial fibrillation.??Sugar and blood pressure control.? The carotid arteries showed no hemodynamically significant stenosis.? echocardiogram with bubble study to rule out PFO.? Continue aspirin and rosuvastatin cardiology eval PT OT, speech and swlalow, stroke education-May need very short-term rehabilitation, PT, OT evaluation. 2. acute UTI -? asymptomatic but given her acute CVA cotninue iv antibiotics - follow cultures 3. hypertension - BP stable not significantly elevated - will continue home medications 4.coronary artery disease - continue aspirin and metoprolol DVT prophylaxis: Lovenox? Quality Stroke Does the patient have a stroke diagnosis?: No VTE Prior VTE?: No VTE Risk Level:: Medical - moderate - high VTE Device Contraindication: Treatment Not Indicated VTE Drug Contraindication: N/A - Med Ordered
--- NOTE | 2021-08-04 14:42 | MHC.CM.PN ---
with interpertaor met with pt who again declines pt and ot receommendation for acute rehab she is agreeable to [facility] pt lives with 5 children 4 of which are diabled pt is vaccinated x 3 dc plan home with ns
[2021-08-04] MEDS: lisinopriL 20 MG TABLET PO (14:59)
--- NOTE | 2021-08-04 15:28 | MHC.SL.SWA ---
Speech Pathologist Impression: Oral Phase Dysphagia Risk of Aspiration Due to: Neurological Condition Dysphasia Diet Status: No Change Liquid Consistency and Strategies for Safe Swallow: Liquid Intake Recommendation: Thin Liquid Intake Strategies: Small Sips Solid Food Consistency: Dietary Recommendations: Regular Additional Modifications to Solid Foods: Patient denies difficulty swallowing. Mild oral phase dysphagia secondary to limited dentition, characterized by mildly prolonged mastication but with complete oral clearance. Unremarkable pharyngeal phase. No overt s/s of aspiration with bedside PO trials. Recommend continue REGULAR solids and THIN liquids, pills WHOLE in LIQUID, avoid difficult to chew, tough solids. MERCHANDISE PLANNER to f/u 1x time to ensure tolerance. Oral Medication Intake: Whole with Liquid Compensatory Strategies and Precautions to be Taken for Safe Swallow: Sitting Upright (90 deg) Small Bites and Sips Alternate Liquids/Solids Rate of Ingestion Change Avoid Specific Foods Supervision While Eating and Drinking for Safe Swallow: None Needed Foods to Avoid: self-select easier to chew solids/ avoid tough, difficult to chew solids Swallowing Recommended Treatments: Recommendation for Speech: NA:Typical Evaluation Comment: 1 f/u Fisher Spear Clinican/Clinical Fellow: Yes: Micki Faith Supervisory Statement: I have reviewed and agree with the student/clinical fellow's documentation: N/A Speech Language Pathologist: Barbara Ma M.A., CCC-MERCHANDISE PLANNER
[2021-08-04 16:29] LABS: Glucose, Whole Blood 190 mg/dL (60-115)
[2021-08-04 20:47] LABS: Glucose, Whole Blood 126 mg/dL (60-115)
[2021-08-05 03:35] VITALS: BP 111/52; PULSE 59; RESP 18; TEMP 37.1; O2SAT 99
[2021-08-05] MEDS: Heparin Sodium,Porcine 5,000 UNIT/ML VIAL 5000 UNIT SUBCUT (05:19)
[2021-08-05 06:49] LABS: Anion Gap 10 (12-20); Blood Urea Nitrogen 17 mg/dL (9-16); Calcium 9.3 mg/dL (8.4-10.2); Carbon Dioxide 30 mmol/L (22-29); Chloride 103 mmol/L (96-108); Estimated Glomerular Filt Rate 51; Glucose Random 135 mg/dL (60-115); Potassium 3.9 mmol/L (3.3-5.1); Sodium 139 mmol/L (135-145)
[2021-08-05 07:21] VITALS: BP 161/61; PULSE 65; RESP 18; TEMP 37.3; O2SAT 98
[2021-08-05 08:18] VITALS: BP 161/61; PULSE 65; O2SAT 98
[2021-08-05 09:34] LABS: Glucose, Whole Blood 190 mg/dL (60-115)
--- NOTE | 2021-08-05 09:59 | P.DS_ITS ---
DS: Providers Provider Date of Service: 08/05/21 Date of admission: 08/02/21 22:54 Primary care physician: Unknown Physician Consults: 08/03/21 00:52 Consult to Neurology Routine Consulting Provider: [facility] Reason for consultation: stroke Has provider been notified: No 08/04/21 11:05 Consult to Cardiology Routine Consulting Provider: Bridger Clark Reason for consultation: cva ? embolic , also recomended bubble study Has provider been notified: Yes DS: Diagnosis Discharge Diagnosis (1) Acute UTI: Status: Acute (2) CVA (cerebral vascular accident): Status: Acute DS: Summary Hospital Course Hospital Course: Chief Complaint: leg weakness 65-year-old female with past medical history of CAD status post stent, HTN, hi story of sinus bradycardia, and diastolic heart failure presents to the hospital with complaints of right leg weakness.? Patient reports that the weakness started 3:00 p.m. [place], she felt significant weakness where she could not walk, she was able to get herself to the car by the help of a shopping cart.? Never had anything similar to this in the past, she denies any changes in vision, reports no slurred speech or facial droop.? She also reports some weakness numbness and tingling in her right upper extremity.? She reports that since being in the hospital she continues to have and is not sure if it has improved since she has not been able to walk in the ED. She denies any headache, no change in vision, reports no palpitations, no chest pain, no shortness of breath, no abdominal pain nausea or vomiting, no diarrhea constipation, no urinary symptoms and no lower extremity edema. On arrival to the ED patient hemodynamically stable with no significant abnormal vitals Labs are significant for WBC count of 4.0, hemoglobin of 11.1, hematocrit of 34.5, BUN of 24, creatinine of 1.27 which is around her baseline, UA positive for leukocyte Estrace and WBC, Head CT showed no acute intracranial pathology, mild chronic microangiopathy, intermediate calcification post parotid glands. Neurology was consulted, and recommended no tPA Hospital course: Acute te CVA with right leg weakness. MRI showed an acute infarct within the left parasagittal frontal lobe in the left JOSE ALBERTO territory with cytotoxic edema resulting in local cerebral sulcal effacement. Neurology consult- suggesting central source with embolism,Cardiac monitoring for atrial fibrillation.??Sugar and blood pressure control. The carotid arteries showed no hemodynamically significant stenosis. Continue aspirin and? rosuvastatin. Echo shows no PFO on intracardiac clot. No AFIB on monitor. Overall doing better with gait, amubulating with cane. PT is recommendding home PT UTI--negative culture, no symptoms, no abx at this time HTN--BP not at goal, she has been getting half of home dose of Lisinopril, resume at 40 mg daily CAD - continue aspirin and metoprolol HLS--rosuvostatin will be changed to Lipitor 80 Time Spent with Patient Time attestation: Total time spent providing and/or coordinating discharge services: Discharge coordination time: Greater than 30 minutes Quality: Stroke Does the patient have a stroke diagnosis?: No Physical Exam Vital Signs: Vital Signs: Last Vital Signs Temp 99.1 F 08/05/21 07:21 Pulse 65 08/05/21 08:18 Resp 18 08/05/21 07:21 BP 161/61 H 08/05/21 08:18 Pulse Ox 98 08/05/21 08:18 BMI result Body Mass Index 34.2 Const: Other: General: AO X 3, no acute distress Resp: CTA bilateral CVS: S1,S2,RRR GI: +BS, NT, no distention Skin: No rash Neuro: motor grossly intact Psych: appropriate affect DS: Data Data Completed and Pending Labs on day of discharge: Laboratory Results - last 24 hr 08/04/21 08/04/21 08/04/21 10:08 10:57 16:25 Sodium Potassium Chloride Carbon Dioxide Anion Gap BUN Creatinine Estim Creat Clear Calc Estimated GFR POC Glucose 105 114 190 H Random Glucose Calcium 08/04/21 08/05/21 08/05/21 20:44 06:12 09:22 Sodium 139 Potassium 3.9 Chloride 103 Carbon Dioxide 30 H Anion Gap 10 L BUN 17 H Creatinine 1.07 Estim Creat Clear Calc 55.0 Estimated GFR 51 POC Glucose 126 H 190 H Random Glucose 135 H Calcium 9.3 Discharge Plan Discharge Anticipated Discharge Date/Time: 08/05/21 09:58 Patient Disposition: Home, Self-Care Discharge Diagnosis: possible cva ,uti Referrals: ernesto [Other] - 1 Week Physician,Unknown J [Primary Care Provider] - 1 Week Discharge Medications: New atorvastatin 80 mg Tablet 80 mg PO DAILY Qty: 30 RF: 0 Continued isosorbide mononitrate 60 mg tablet extended release 24 hr 60 mg PO DAILY Qty: 90 RF: 3 metoprolol succinate 25 mg Tablet Extended Release 24 Hr 25 mg PO DAILY RF: 0 Trulicity 1.5 mg/0.5 mL pen injector 1.5 mg subcut TH@1000 RF: 0 Tresiba FlexTouch U-100 100 unit/mL (3 mL) insulin pen 40 unit subcut BEDTIME RF: 0 lisinopril 40 mg tablet 40 mg PO DAILY RF: 0 aspirin [Adult Low Dose Aspirin] 81 mg tablet,delayed release (DR/EC) 81 mg PO DAILY RF: 0 Discontinued rosuvastatin 40 mg tablet 40 mg PO DAILY RF: 0 Discharge Orders: Discharge Order (Routine); Ordered 08/05/21 Ordered By: Richie Ortega Diet: advance to usual diet, diabetic diet, low fat, low cholesterol and low salt diet Activity on Discharge: As tolerated Stand Alone Forms: Patient Portal Discharge page Care Plan Goals: patient came to the hospital because of right-sided weakness -possible CVA, seen by neuro and MRI of head was done: Patient is already on aspirin, statin, seen by PT OT and recommends home with PT Health Concerns: As above. Plan of Treatment: As above. Assessment: As above.
[2021-08-05 10:04] VITALS: BP 136/61; PULSE 71
[2021-08-05] MEDS: Atorvastatin Calcium 80 MG TABLET PO (10:04)
[2021-08-05] MEDS: lisinopriL 20 MG TABLET PO ×2 (10:04→10:37)
[2021-08-05] MEDS: Aspirin Enteric Coated 81 MG TABLET.DR PO (10:04)
[2021-08-05] MEDS: Metoprolol Succinate ER 25 MG TAB.ER.24H PO (10:04)
[2021-08-05 10:05] VITALS: BP 136/61; PULSE 71
[2021-08-05] MEDS: Isosorbide Mononitrate 60 MG TAB.ER.24H PO (10:05)
--- NOTE | 2021-08-05 10:06 | MHC.CM.PN ---
pt dcd home today with ernesto burns pt has own transport home
--- NOTE | 2021-08-05 10:13 | P.F2F_ITS ---
Service Date Service Date: 08/05/21 Reasons for Services Homebound: Leaving the home is medically contraindicated at this time without the asist of a device and/or another person due th the listed conditions above and below. Homebound supporting statement: Homebound due to acute stroke with right leg weakness and unsteady gait and therefore needs the assitance of another person Certification: Based on the above findings, I certify that this patient is confined to the home and needs intermittent custodial care, physical therapy and/or speech therapy, or continues to need occupational therapy. The patient is under my care, and I have initiated the establishment of the plan of care. The patient will be followed by a physician who will periodically review the plan of care.
--- NOTE | 2021-08-05 10:21 | P.CONCA_ITS ---
History of Present Illness History of Present Illness Date of Service: 08/05/21 Chief complaint: Stroke Narrative: This is a cardiology consultation to assess for any cardioembolic source of stroke. Patient sees Dr. Pruett in our office. Current admission is because of right leg weakness. When she was at the mall, she had some weakness and could not walk. She also had some numbness and tingling in the right upper extremity with weakness. Then she was admitted to the hospital and evaluated and so far the diagnosis is stroke. Based on brain imaging, there is a concern for embolic source of stroke. Hence we have been asked to see her. There is no mention of any atrial fibrillation her prior history. Otherwise from a cardiac standpoint, there is no history of any anginal-type symptoms or shortness of breath or palpitations or in fact any cardiac symptoms whatsoever. Prior to this episode, she states that she was actually doing okay. Review of Systems Review of Systems: Yes all other systems are reviewed and are negative Cardiovascular: Cardiovascular: Reports as per HPI, Reports no additional cardiovascular complaints, Denies acrocyanosis, Denies cool extremities, Denies painful fingertips, Denies chest pain, Denies chest pain at rest, Denies diaphoresis, Denies syncope, Denies irregular heart rhythm, Denies claudication, Denies leg edema, Denies lightheadedness, Denies palpitations and Denies dyspnea Respiratory: Respiratory: Denies dyspnea Neurologic: Denies syncope Endocrine: Endocrine: Denies palpitations PMFSH Past Medical History Medical History CAD (coronary artery disease) Diastolic dysfunction HTN (hypertension) Sinus bradycardia Tubal ligation evaluation Family History Family History Father Cancer Mother Diabetes Surgical History Surgical History Hx of cardiac cath Hx of colonoscopy Stented coronary artery Social History Social History Household Members: Family Housing: House Do you presently have visiting nurse or other home services: No Alcohol intake: never Patient Tobacco Use Status: Never used Tobacco Second Hand Smoke Exposure: No service: No Meds Allergies Allergy/AdvReac Type Severity Reaction Status Date / Time penicillin V Allergy Unknown rash, hives Verified 02/05/21 08:23 Penicillins [PENICILLINS] Allergy Unknown RASH Verified 02/05/21 08:23 Vinyl Gloves Allergy Unknown rash Verified 02/05/21 08:23 tuberculin, purified protein AdvReac Intermediate RASH Verified 02/05/21 08:23 deriva [TUBERCULIN,PURIF.PROT.DERIV.] Active Medications: Current Medications Acetaminophen (Acetaminophen 325 Mg Tablet) 650 mg PO Q6H PRN PRN Reason: Pain, Mild (Pain Scale 1-3) Aspirin (Aspirin Enteric Coated 81 Mg Tablet.) 81 mg PO DAILY [facility] Last Admin: 08/05/21 10:04 Dose: 81 mg Documented by: Atorvastatin Calcium (Atorvastatin Calcium 80 Mg Tablet) 80 mg PO DAILY [facility] Last Admin: 08/05/21 10:04 Dose: 80 mg Documented by: Docusate Sodium (Docusate Sodium 100 Mg Capsule) 100 mg PO DAILY PRN PRN Reason: Constipation Heparin Sodium (Porcine) (Heparin Sodium,Porcine 5,000 Unit/Ml Vial) 5,000 unit SUBCUT Q8H [facility] Last Admin: 08/05/21 05:19 Dose: 5,000 unit Documented by: Insulin Glargine (Insulin Glargine,Hum.Rec.Anlog 100 Unit/Ml 10 Ml Vial) 21 unit SUBCUT BEDTIME [facility] Last Admin: 08/04/21 21:50 Dose: Not Given Documented by: Isosorbide Mononitrate (Isosorbide Mononitrate 60 Mg Tab.Er.24h) 60 mg PO DAILY [facility]; Protocol Last Admin: 08/05/21 10:05 Dose: 60 mg Documented by: Lisinopril (Lisinopril 20 Mg Tablet) 20 mg PO DAILY [facility]; Protocol Last Admin: 08/05/21 10:04 Dose: 20 mg Documented by: Metoprolol Succinate (Metoprolol Succinate Er 25 Mg Tab.Er.24h) 25 mg PO DAILY [facility]; Protocol Last Admin: 08/05/21 10:04 Dose: 25 mg Documented by: Ondansetron HCl (Ondansetron Hcl 4 Mg/2 Ml Vial) 4 mg IVPUSH Q8H PRN PRN Reason: Nausea and Vomiting Home Medications Medication Instructions Recorded Confirmed Last Taken Type aspirin 81 mg tablet,delayed 81 mg PO DAILY 02/08/0508/03/21 08/02/21 History release (Adult Low Dose Aspirin) dulaglutide 1.5 mg/0.5 mL 1.5 mg SUBCUT TH@1000 09/27/20 08/03/21 07/31/21 His tory subcutaneous pen injector insulin degludec 100 unit/mL (3 40 unit SUBCUT BEDTIME 09/27/20 08/03/21 Unknown History mL) subcutaneous pen lisinopril 40 mg tablet 40 mg PO DAILY 09/27/20 08/03/21 08/02/21 History rosuvastatin 40 mg tablet 40 mg PO DAILY 09/27/20 08/03/21 08/02/21 History metoprolol succinate 25 mg 25 mg PO DAILY 08/03/21 08/03/21 Unknown History tablet,extended release 24 hr Physical Exam Vital Signs: Vital Signs: Last Vital Signs Temp 99.1 F 08/05/21 07:21 Pulse 71 08/05/21 10:05 Resp 18 08/05/21 07:21 BP 136/61 08/05/21 10:05 Pulse Ox 98 08/05/21 08:18 BMI result Body Mass Index 34.2 Const: General: no acute distress HENMT: Other: Unremarkable Neck: Neck: Yes normal visual inspection Chest: Chest palpation & inspection: normal inspection of the chest Resp: Auscultation: no crackles and no wheezes Cardio: Palpation: normal PMI Heart sounds: S1 normal heart sound present, S2 normal heart sound present, no gallops, no murmurs and no rubs GI: Palpation (GI): Soft to palpation Back/Spine/Pelvis: Other: unremarkable Skin: Lesions: other Neuro: Cranial nerves: Yes Other cranial nerve findings present Extrem: General: Yes other Psych: Mental Status: other Objective Labs and Meds Result diagrams: 08/03/21 06:50 08/05/21 06:12 Lab results: Laboratory Results - last 24 hr 08/04/21 08/04/21 08/04/21 10:57 16:25 20:44 Sodium Potassium Chloride Carbon Dioxide Anion Gap BUN Creatinine Estim Creat Clear Calc Estimated GFR POC Glucose 114 190 H 126 H Random Glucose Calcium 08/05/21 08/05/21 06:12 09:22 Sodium 139 Potassium 3.9 Chloride 103 Carbon Dioxide 30 H Anion Gap 10 L BUN 17 H Creatinine 1.07 Estim Creat Clear Calc 55.0 Estimated GFR 51 POC Glucose 190 H Random Glucose 135 H Calcium 9.3 ECG Interpretation: EKG with sinus rhythm at 57/Min and no significant ST-T changes and otherwise unremarkable. Assessment and Plan (1) CVA (cerebral vascular accident): Qualifiers: CVA mechanism: unspecified Qualified Code(s): I63.9 - Cerebral infarction, unspecified Status: Acute (2) Atherosclerotic cardiovascular disease: Status: Acute (3) Sinus bradycardia: Status: Acute (4) Essential hypertension: Status: Acute (5) Diastolic dysfunction: Status: Acute Per last office note, history of sinus bradycardia, diastolic dysfunction related to poorly controlled hypertension; coronary artery disease with a history of bare metal stent to mid LAD and diffuse moderately severe three-vessel disease from 2014. Based on telemetry, no evidence of any atrial fibrillation. Echocardiogram from yesterday shows LVEF of 65-70% moderate LVH most likely from hypertension and moderate mitral annular calcification but bubble study itself was negative. Antiplatelet therapy per Neurology. Otherwise from a cardiac standpoint, we will evaluate for atrial fibrillation with 30 day event monitor. Subsequently, may need implantable loop recorder as well. Embolic phenomenon could also occur from embolization of atherosclerotic plaque from arch, calcium from MAC among others. Will follow-up in the office. Procedures Date of Service Date of Service: 08/05/21
[2021-08-05 10:37] VITALS: BP 136/61; PULSE 71
== END 2021-08-05 11:57 | disposition home or self-care (01) | DRG 65 ==
LOC: HO.ED 22:32 → HO.EDOVER 23:03 → HO.IMC 08-04 08:14
PROVIDERS: Internal Medicine; Physician Assistant; Admitting Provider Internal Medicine; Emergency Provider Emergency Medicine; PCP Internal Medicine; Visit Provider Internal Medicine
DX: I63.422 Cerebral infarction due to embolism of left anterior cerebral artery (principal); N39.0 Urinary tract infection, site not specified; I50.32 Chronic diastolic (congestive) heart failure; G83.11 Monoplegia of lower limb affecting right dominant side; R29.705 NIHSS score 5; I25.10 Atherosclerotic heart disease of native coronary artery without angina pectoris; I11.0 Hypertensive heart disease with heart failure; R00.1 Bradycardia, unspecified; Z20.822 Contact with and (suspected) exposure to COVID-19; Z88.0 Allergy status to penicillin; Z79.4 Long term (current) use of insulin; Z79.82 Long term (current) use of aspirin; Z79.899 Other long term (current) drug therapy
CPT/HCPCS: 36415; 70450; 70544; 70551; 80048; 80053; 80061; 81001; 82550; 82947; 83735; 84100; 84484; 85025; 85610; 85730; 87086; 87635; 92610; 93005; 93306; 96365; 97110; 97116; 97162; 97166; 99285; J0696; Q9957

== ENCOUNTER → 2021-08-05 10:30 | Outpatient (REF) | payer MEDICARE, MEDICAID, SELFPAY | LOC: HO.CARD 10:30 | PROVIDERS: Visit Provider Internal Medicine | DX: Z13.89 Encounter for screening for other disorder (principal) ==

== ENCOUNTER → 2021-08-14 13:56 | Outpatient (REF) | payer MEDICARE, MEDICAID, SELFPAY ==
--- NOTE | 2021-08-14 13:59 | HM_ITS ---
TEST PERFORMED: Cardiac event monitoring. REQUESTING PHYSICIAN: Dr. Clark. ENROLLMENT PERIOD: 08/14/2021, to 09/13/2021; 30 days. INDICATION: Paroxysmal atrial fibrillation. FINDINGS: In the above monitoring period, underlying rhythm was sinus. Rates ranged from 48 beats per minute to 72 beats per minute. There were episodes of PACs, PVCs. These seemed to be fairly isolated. There were no sustained arrhythmias. Palpitations/racing/fluttering noted by the patient correlated with sinus bradycardia/PACs. CONCLUSION: A 30 day monitoring shows sinus rhythm, sinus bradycardia, PACs and PVCs. Bridger Clark MD HS/SALUD / [phone]
== END ==
LOC: HO.CARD 13:56
PROVIDERS: Visit Provider Internal Medicine
DX: I48.0 Paroxysmal atrial fibrillation (principal)
CPT/HCPCS: 93270

== ENCOUNTER → 2021-09-29 13:32 | Outpatient (BNVA) | payer MEDICARE, MEDICAID, SELFPAY | PROVIDERS: Referring Provider Internal Medicine; Visit Provider Internal Medicine Cardiovascular Disease | DX: I25.10 Atherosclerotic heart disease of native coronary artery without angina pectoris (principal); Z86.73 Personal history of transient ischemic attack (TIA), and cerebral infarction without residual deficits | CPT/HCPCS: 99212 ==

== ENCOUNTER 2021-10-03 09:57 | Outpatient (REF) | payer MEDICARE, MEDICAID, SELFPAY ==
[2021-10-03 10:13] VITALS: BMI 30.8
[2021-10-03 10:14] VITALS: BP 137/48; PULSE 53; RESP 16; TEMP 36.8; O2SAT 98
== END 2021-10-03 09:58 | disposition home or self-care (01) ==
LOC: HO.MS 09:57
PROVIDERS: PCP Internal Medicine; Visit Provider Internal Medicine Cardiovascular Disease
DX: I63.9 Cerebral infarction, unspecified (principal); Z53.9 Procedure and treatment not carried out, unspecified reason; I10 Essential (primary) hypertension

== ENCOUNTER 2021-10-17 12:45 | Outpatient (REF) | payer MEDICARE, MEDICAID, SELFPAY ==
[2021-10-17 12:31] VITALS: BP 137/46; PULSE 56; RESP 16; TEMP 36.6; O2SAT 99; BMI 23.6
[2021-10-17 13:09] VITALS: BP 125/47; PULSE 57; RESP 16; O2SAT 97
--- NOTE | 2021-10-17 13:43 | P.BOP_ITS ---
Brief Operative Note Date of Service: 10/17/21 Pre-op diagnosis: CVA Post-op diagnosis: same Procedure: Placement of implantable loop recorder Implants: After obtaining full informed consent patient was brought to the minor surgery suite. Patient was then laid on the operating table in a supine position. Patient's precordial area was then prepped and draped under sterile fashion. Patient was given 2% lidocaine and epinephrine intradermally and subcutaneously. Small incision was then made in the precordial space. A [place] implantable loop recorder serial [id number] was implanted using Seldinger technique. Measured R-waves at 0.33-0.35 mV. The wound was then closed with Steri-Strips and a pressure bandage dressing applied. Surgeon: Patric Pruett MD Anesthesia: local Was an Business Services Specialist Sales used for this Procedure?: No Estimated blood loss (mL): 1 Pathology: none sent Condition: stable Disposition: same day
== END 2021-10-17 12:46 | disposition home or self-care (01) ==
LOC: HO.MS 12:45
PROVIDERS: Visit Provider Internal Medicine Cardiovascular Disease
PROC: (CPT 33285; principal; 2021-10-17 12:40)
DX: I63.9 Cerebral infarction, unspecified (principal)
CPT/HCPCS: 33285; C1764

== ENCOUNTER → 2021-10-30 15:23 | Outpatient (BNVA) | payer MEDICARE, MEDICAID, SELFPAY | PROVIDERS: PCP Internal Medicine; Referring Provider Internal Medicine; Visit Provider Internal Medicine Cardiovascular Disease | DX: I25.10 Atherosclerotic heart disease of native coronary artery without angina pectoris (principal); Z45.09 Encounter for adjustment and management of other cardiac device; Z79.82 Long term (current) use of aspirin; Z79.899 Other long term (current) drug therapy | CPT/HCPCS: 99212 ==

== ENCOUNTER → 2022-01-29 09:27 | Outpatient (BNVA) | payer MEDICARE, MEDICAID, SELFPAY | PROVIDERS: PCP Internal Medicine; Visit Provider Internal Medicine Cardiovascular Disease | DX: I25.10 Atherosclerotic heart disease of native coronary artery without angina pectoris (principal); I10 Essential (primary) hypertension; Z79.82 Long term (current) use of aspirin; Z79.899 Other long term (current) drug therapy; Z45.09 Encounter for adjustment and management of other cardiac device | CPT/HCPCS: 99212 ==

== ENCOUNTER → 2022-07-20 12:53 | Outpatient (BNVA) | payer MEDICARE, MEDICAID, SELFPAY | PROVIDERS: PCP Internal Medicine; Visit Provider Internal Medicine Cardiovascular Disease | DX: Z45.09 Encounter for adjustment and management of other cardiac device (principal); I25.10 Atherosclerotic heart disease of native coronary artery without angina pectoris; R00.1 Bradycardia, unspecified | CPT/HCPCS: 93005; 99212; Q3014 ==

== ENCOUNTER 2022-09-02 08:16 | Outpatient (REF) | payer MEDICARE, MEDICAID, SELFPAY ==
[2022-09-02 08:50] VITALS: BP 151/67; PULSE 57; RESP 16; TEMP 36.8; O2SAT 98
[2022-09-02 08:51] VITALS: BMI 30.1
--- NOTE | 2022-09-02 10:35 | P.BOP_ITS ---
Brief Operative Note Date of Service: 09/02/22 Pre-op diagnosis: Implantable loop recorder in place Post-op diagnosis: same Procedure: Removal of implantable loop recorder Implants: After obtaining full informed consent patient brought to the minor surgery suite in fasting condition. Patient was then laid on the operating table in supine position. Patient's precordial area was then prepped and draped in a sterile fashion. Patient was then given local anesthesia intradermally and subcutaneously over the head of the device. A small incision was then made. The device was then removed. The wound was then closed with Steri-Strips. Patient tolerated the procedure well Surgeon: aPtric Pruett MD Anesthesia: local Was an Offset Label Rewinder used for this Procedure?: No Estimated blood loss (mL): 1 Pathology: none sent Condition: stable Disposition: same day
== END 2022-09-02 08:17 | disposition home or self-care (01) ==
LOC: HO.MS 08:16
PROVIDERS: PCP Internal Medicine; Visit Provider Internal Medicine Cardiovascular Disease
PROC: (CPT 33286; principal; 2022-09-02 09:00)
DX: Z95.818 Presence of other cardiac implants and grafts (principal)
CPT/HCPCS: 33286

== ENCOUNTER → 2022-09-10 13:24 | Outpatient (BNVA) | payer MEDICARE, MEDICAID, SELFPAY | PROVIDERS: PCP Internal Medicine; Referring Provider Internal Medicine; Visit Provider Nurse Practitioner Family | DX: I25.10 Atherosclerotic heart disease of native coronary artery without angina pectoris (principal); Z95.818 Presence of other cardiac implants and grafts | CPT/HCPCS: 99212 ==

== ENCOUNTER 2023-03-23 10:02 | Outpatient (AMB) | payer OTHER, SELFPAY ==
--- NOTE | 2023-03-23 10:10 | A.OFFVIS_ITS ---
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 Intake Note: no concerns Enrollment Management Coordinator Required: Yes Enrollment Management Coordinator Language: Hypoid Gear Generator Name: Court PAUL Information Interpreted: non-clinical & clinical Mine Equipment Design Engineer: Mine Equipment Design Engineer Present (Court PAUL) Accompanied by: Self / Same As Patient Allergies penicillin V Allergy (Unknown, Verified 09/10/22 13:28) rash, hives Penicillins [PENICILLINS] Allergy (Unknown, Verified 09/10/22 13:28) RASH Vinyl Gloves Allergy (Unknown, Verified 09/10/22 13:28) rash tuberculin, purified protein deriva [TUBERCULIN,PURIF.PROT.DERIV.] Adverse Reaction (Intermediate, Verified 09/10/22 13:28) RASH transparent dressing [Tegaderm] Adverse Reaction (Verified 09/10/22 13:) Rash HPI HPI Comments History of Present Illness Details Presenting for annual exam. No complaints. Last Pap/HPV was in 02/03 was negative Last Mammogram was done recently at [facility] according to the patient, records not available Last Colonoscopy in 2019, the recommendation was to repeat in 5 years Last DEXA scan was done recently at [place] according to the patient, records not available [facility] Medical History Atherosclerotic cardiovascular disease CAD (coronary artery disease) Diastolic dysfunction Essential hypertension HTN (hypertension) Sinus bradycardia Tubal ligation evaluation Surgical History Hx of cardiac cath Hx of colonoscopy Hx of tubal ligation Stented coronary artery Family History Father Cancer Mother Diabetes Social History Household Members: Family Housing: House Do you presently have visiting nurse or other home services: No Alcohol intake: never Patient Tobacco Use Status: Never used Tobacco Second Hand Smoke Exposure: No service: No Female Reproductive History Menstrual Age of Menarche: 12 control method: permanent sterilization Total pregnancies: 5 Full term: 5 Number of Living Children: 5 Date of last pap smear: 02/07/21 Date of Mammogram: 03/04/23 Date of last Bone Density Screenin03/04/23 Physical Exam Vital Signs: Last Vital Signs BP 122/70 03/23/23 10:11 BMI result Body Mass Index 30.1 Assessment & Plan Assessment & Plan (1) Well woman exam: Code(s): Z01.419 - Encounter for gynecological examination (general) (routine) without abnormal findings Plan: Co testing not indicated since the patient 's age is above 65 with no history of abnormal Pap smears last 25 years. Counseled the patient about the recommended dietary allowance of 1200 mg of Calcium & 800 IU of vitamin D. Mammogram and DEXA scan done recently at [place] according to the patient, records not available, the patient is up-to-date with her screening colonoscopy done. Will order DEXA scan . The patient was instructed to perform monthly self-breast exams and to schedule an annual exam in a year; all questions answered and the patient verbalized understanding. Orders: Orders XR DEXA axial skeleton Today N95.1 - Menopausal and female climacteric states MM screening mammo BI Today Z12.31 - Encounter for screening mammogram for ma lignant neoplasm of breast Coding Level of Care Code Est Pt Prev Care >65y(77045) Diagnoses Well woman exam Z01.419
[2023-03-23 10:11] VITALS: BP 122/70; BMI 30.1
== END 2023-03-23 10:47 | disposition home or self-care (01) ==
LOC: HO.HWS 10:02
PROVIDERS: PCP Internal Medicine; Visit Provider Obstetrics & Gynecology
DX: Z01.419 Encounter for gynecological examination (general) (routine) without abnormal findings (principal)
CPT/HCPCS: 99397

== ENCOUNTER → 2023-03-23 10:02 | Outpatient (BNVA) | payer OTHER, SELFPAY | PROVIDERS: PCP Internal Medicine; Visit Provider Obstetrics & Gynecology ==

== ENCOUNTER 2023-07-02 11:33 | Emergency (ER) | payer OTHER, SELFPAY ==
--- NOTE | ~2023-07-02 | XR_ITS ---
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 Remaining bone and joints normal. Vascular calcification present. 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 The bones joints soft tissues are otherwise normal. No fracture. 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 No acute abnormality LEFT HAND: No acute abnormality.
--- NOTE | ~2023-07-02 | XR_ITS ---
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 Remaining bone and joints normal. Vascular calcification present. 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 The bones joints soft tissues are otherwise normal. No fracture. 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 No acute abnormality LEFT HAND: No acute abnormality.
[2023-07-02 11:38] VITALS: BP 208/76; PULSE 66; RESP 18; TEMP 36.4; O2SAT 97; BMI 29.6
--- NOTE | 2023-07-02 11:39 | ED.GENADULT ---
HPI - General Adult General Chief complaint: Extremity Injury, Upper Stated complaint: R/L Hand Pain Time Seen by Provider: 07/02/23 11:56 Source: patient, RN notes reviewed and old records reviewed Mode of arrival: ambulatory History of Present Illness HPI narrative: 67-year-old female with a past medical history of hypertension, HTN, CAD, rheumatoid arthritis, presenting to ED complaining of bilateral hand and wrist pain x4 months. States this is typical for arthritic flares. Has been taking Tylenol Arthritis at home without relief. States was referred to hip hop dancer however is having difficulty getting appointment. Denies recent injury/trauma or fall, fever/chills, numbness/tingling, redness. Admits to taking her antihypertensives this morning. Denies headache, CP/SOB Related Data Home Medications Medication Instructions Recorded Confirmed aspirin 81 mg tablet,delayed 81 mg PO DAILY 09/27/20 09/10/22 release (Adult Low Dose Aspirin) dulaglutide 1.5 mg/0.5 mL 1.5 mg subcut TH@1000 09/27/20 09/10/22 subcutaneous pen injector insulin degludec 100 unit/mL (3 40 unit subcut BEDTIME 09/27/20 09/10/22 mL) subcutaneous pen lisinopril 40 mg tablet 40 mg PO DAILY 09/27/20 09/10/22 metoprolol succinate 25 mg 25 mg PO DAILY 08/03/21 09/10/22 tablet,extended release 24 hr trazodone 50 mg tablet 50 mg PO BEDTIME 09/10/22 09/10/22 Previous Rx's Medication Instructions Recorded atorvastatin 80 mg tablet 80 mg PO DAILY #30 tabs 08/05/21 isosorbide mononitrate 60 mg 60 mg PO DAILY #90 tabs 12/22/22 tablet,extended release 24 hr diclofenac sodium 1 % topical gel 4 g topical QID PRN pain (scale 07/02/23 (Arthritis Pain (diclofenac)) score 1-3) #100 grams prednisone 20 mg tablet 40 mg (2 x 20 mg) PO DAILY 5 days 07/02/23 #10 tabs Allergies Allergy/AdvReac Type Severity Reaction Status Date / Time penicillin V Allergy Unknown rash, hives Verified 09/10/22 13:28 Penicillins [PENICILLINS] Allergy Unknown RASH Verified 09/10/22 13:28 Vinyl Gloves Allergy Unknown rash Verified 09/10/22 13:28 tuberculin, purified protein AdvReac Intermediate RASH Verified 09/10/22 13:28 deriva [TUBERCULIN,PURIF.PROT.DERIV.] transparent dressing AdvReac Rash Verified 09/10/22 13:28 [Tegaderm] Review of Systems Review of Systems: Constitutional: No Fever, No Chills ENT/Mouth: No Ear Pain, No Nasal Congestion, No sore throat, No Rhinorrhea, No Swallowing Difficulty Cardiovascular: No Chest Pain, No SOB Respiratory: No Cough Gastrointestinal: No Nausea, No Vomiting, No Diarrhea, No Constipation, No Abdominal pain Musculoskeletal: + joint pain, + Myalgias, + Joint Swelling Skin: No Skin Lesions, No rash Neuro: No Weakness, No Numbness, No Paresthesias Yes all other systems are reviewed and are negative Constitutional: Constitutional: Reports as per [facility] Past Medical History Attestation statement: The following information was validated with the patient. Source: old records reviewed Medical History Essential hypertension Atherosclerotic cardiovascular disease Tubal ligation evaluation Sinus bradycardia Diastolic dysfunction HTN (hypertension) CAD (coronary artery disease) Surgical History Hx of tubal ligation Stented coronary artery Hx of colonoscopy Hx of cardiac cath Family History Family History Father Cancer Mother Diabetes Social History Social History Household Members: Family Housing: House Do you presently have visiting nurse or other home services: No Alcohol intake: never Patient Tobacco Use Status: Never used Tobacco Second Hand Smoke Exposure: No Advance Directives: No Advance Directives Information Provided: No service: No Physical Exam ED Vital Signs: Vital Signs - 24 hr 07/02/23 11:38 07/02/23 12:30 Temperature 97.6 F Pulse Rate 66 Respiratory Rate 18 Blood Pressure 208/76 H 189/75 H Pulse Oximetry 97 Oxygen Delivery Method Room Air BMI result Body Mass Index 29.6 Const General: cooperative, healthy appearing and no acute distress Orientation/consciousness: patient oriented x3 Limitations: no limitations HENMT Head: Yes normal to inspection and Yes atraumatic Ears: hearing grossly normal bilaterally General nose exam: Normal external nose present Face and sinus: Yes normal facial exam Eyes General: appearance normal, both eyes and all related structures EOM: EOMs intact bilaterally Neck Neck: Yes normal visual inspection and Yes no meningeal signs Resp Effort & Inspection: normal respiratory effort and no respiratory distress Cardio Rate: regular rate Peripheral pulses: radial pulses present and ulnar radial pulses present Skin Rashes: no rashes Wounds: no wounds Neuro General: patient oriented x3, tone normal and no meningeal signs Cranial nerves: Yes CN's II-XII intact bilaterally Gait exam (Neuro): Normal gait present Extrem Other: Bilateral hands and wrist with mild swelling. Decreased ROM secondary to pain. No erythema/warmth. Diffusely tender to palpation. Neurovascular intact. Course Course Course Narrative: This is an RME: Additional HPI, ROS, PE not included below will be deferred to primary provider. This is a [id number]-do[age]-female presenting to the ER with complaints of BL hand pain x 3 months. Patient has a history of arthritis in her hands, but has been awaiting to be seen by a hip hop dancer. No trauma or injury. Blood pressure elevated at 208/76. Pt with TTP over right wrist. No xrays in file. Further er evaluation needed. 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 No acute abnormality LEFT HAND: No acute abnormality. Results discussed with patient including worrisome signs and symptoms and strict return precautions, and when to return to the emergency department. They verbalized understanding and feel safe for discharge at this time. Medications Administered Discontinued Medications Generic Name Dose Route Start Last Admin Trade Name Freq PRN Reason Stop Dose Admin Ketorolac Tromethamine 30 mg 07/02/23 12:32 07/02/23 13:16 Ketorolac Tromethamine 30 Mg/Ml Vial IM 07/02/23 12:33 30 mg ONCE ONE Administration Medical Decision Making Medical Decision Making MDM Narrative: 67-year-old female with a past medical history of hypertension, HTN, CAD, rheumatoid arthritis, presenting to ED complaining of bilateral hand and wrist pain x4 months. On exam vital signs stable, NAD, nontoxic appearing, physical exam as noted above. Concern for rheumatoid arthritis flare. Low suspicion for fracture/dislocation, DVT, septic joint/arthritis. Low suspicion for hypertensive urgency/emergency Plan: X-rays ordered in triage, pain control. Repeat blood pressure Please refer to course for remaining clinical decision making, interpretation of labs/imaging results, and discussions with consultants and/or family members. Differential Diagnosis Differential Diagnoses: The differential diagnosis associated with the presentation includes As above Independent Interpretation I performed an independent interpretation of an: Plain X-Ray Radiology Impression Discussion of test interpretation with radiology: I have reviewed the radiologist's reading. External Record Review External record reviewed: Inpatient record, Office record, Outpatient record, Prior outpatient labs, Prior outpatient radiology, Primary care record and Outside ED record Tests considered The following testing was considered but not selected: As above Prescription Management I considered prescription management with: Pain Medication Chronic Conditions Patient?s care impacted by: Hypertension Discharge Plan Discharge Clinical Impression: Flare of rheumatoid arthritis Patient Disposition: Home, Self-Care Instructions: Rheumatoid Arthritis (ED) Additional Instructions: Your x-ray show arthritic changes. No fracture Continue taking Tylenol In addition take prednisone which is a steroid. Diclofenac as a topical anti-inflammatory/pain medicine take with food You need to follow-up with Rheumatology, call to make an appointment If symptoms persist or worsen/pain becomes unbearable, areas began to look infected return to the ED Cleaning radiograf?a muestra cambios artr?ticos. Sin fractura Contin?e tomando Tylenol Adem?s tome prednisona, que es un esteroide. Diclofenaco efrain antiinflamatorio/analg?sico t?butch, selina con alimentos Necesitas seguimiento con Reumatolog?a, llama para pedir sharon Si los s?ntomas persisten o empeoran/el dolor se vuelve insoportable, las ?reas que comenzaron a verse infectadas regresan al servicio de urgencias. Prescriptions: New diclofenac sodium [Arthritis Pain (diclofenac)] 1 % gel 4 g topical QID PRN (Reason: pain (scale score 1-3)) Qty: 100 0RF Rx Instructions: apply to single knee, ankle, foot; for foot includes sole/toes/top of foot prednisone 20 mg tablet 40 mg PO DAILY 5 Days Qty: 10 0RF No Action isosorbide mononitrate 60 mg tablet extended release 24 hr 60 mg PO DAILY Qty: 90 3RF metoprolol succinate 25 mg Tablet Extended Release 24 Hr 25 mg PO DAILY atorvastatin 80 mg Tablet 80 mg PO DAILY Qty: 30 0RF dulaglutide 1.5 mg/0.5 mL pen injector 1.5 mg subcut TH@1000 insulin degludec 100 unit/mL (3 mL) insulin pen 40 unit subcut BEDTIME Rx Instructions: PATIENT STATES SHE ONLY TAKES THIS IF HER BLOOD SUGARS ARE OVER 160 lisinopril 40 mg tablet 40 mg PO DAILY aspirin [Adult Low Dose Aspirin] 81 mg tablet,delayed release (DR/EC) 81 mg PO DAILY trazodone 50 mg tablet 50 mg PO BEDTIME Referrals: [facility] Rhe[facility]ology Service [Provider Group] Teena Eubanks MD [Primary Care Provider] - Discharge Date/Time: 07/02/23 12:12 Print Language: German
[2023-07-02 12:30] VITALS: BP 189/75
[2023-07-02] MEDS: Ketorolac Tromethamine 30 MG/ML VIAL IM (13:16)
== END 2023-07-02 15:36 | disposition home or self-care (01) ==
PROVIDERS: Emergency Provider Emergency Medicine; PCP Internal Medicine
DX: M06.832 Other specified rheumatoid arthritis, left wrist (principal); M06.831 Other specified rheumatoid arthritis, right wrist; M79.641 Pain in right hand; M79.642 Pain in left hand; M25.532 Pain in left wrist; M25.531 Pain in right wrist; Z79.899 Other long term (current) drug therapy
CPT/HCPCS: 73110; 73130; 96372; 99284; J1885

== ENCOUNTER 2023-07-19 08:41 | Outpatient (AMB) | payer OTHER, SELFPAY ==
[2023-07-19 08:44] VITALS: BP 168/80; PULSE 61; BMI 30.1
--- NOTE | 2023-07-19 08:44 | A.OFFVIS_ITS ---
Intake Vital Signs 07/19/23 08:44 Height 5 ft 3 in Weight 169 lb 12.095 oz BMI 30.1 BP 168/80 H Blood Pressure Location Lt brachial Position Sitting Pulse 61 Intake Visit Reasons: 1 year f/u Intake Note: 1 year follow-up feeling good Chief Wharfinger Required: No Allergies penicillin V Allergy (Unknown, Verified 09/10/22 13:28) rash, hives Penicillins [PENICILLINS] Allergy (Unknown, Verified 09/10/22 13:28) RASH Vinyl Gloves Allergy (Unknown, Verified 09/10/22 13:28) rash tuberculin, purified protein deriva [TUBERCULIN,PURIF.PROT.DERIV.] Adverse Reaction (Intermediate, Verified 09/10/22 13:28) RASH transparent dressing [Tegaderm] Adverse Reaction (Verified 09/10/22 13:28) Rash Medication List - Last Reconciled 07/19/23 by Patric Pruett MD aspirin (Adult Low Dose Aspirin) 81 mg PO DAILY atorvastatin 80 mg PO DAILY diclofenac sodium 1% (Arthritis Pain (diclofenac)) 4 grams topical QID PRN dulaglutide 1.5 mg subcut TH@1000 insulin degludec 40 units subcut BEDTIME isosorbide mononitrate ER 60 mg PO DAILY lisinopril 40 mg PO DAILY metoprolol succinate ER 25 mg PO DAILY prednisone 40 mg (2 x 20 mg) PO DAILY 5 days trazodone 50 mg PO BEDTIME HPI HPI Comments History of Present Illness Details Pia comes for follow-up. She has been doing well. She has had no recurrent neurologic events. Denies any lightheadedness, syncope. No exertional chest pain or shortness of breath. Remains active. Denies any prolonged palpitation irregular heartbeat. Blood pressures been well optimized. [facility] Medical History (Updated 07/19/23 @ 09:05 by Patric Pruett MD) Status post placement of implantable loop recorder Essential hypertension Atherosclerotic cardiovascular disease Tubal ligation evaluation Sinus bradycardia Diastolic dysfunction HTN (hypertension) CAD (coronary artery disease) Surgical History Hx of tubal ligation Stented coronary artery Hx of colonoscopy Hx of cardiac cath Family History Father Cancer Mother Diabetes Social History Household Members: Family Housing: House Do you presently have visiting nurse or other home services: No Alcohol intake: never Patient Tobacco Use Status: Never used Tobacco Second Hand Smoke Exposure: No service: No Female Reproductive History Menstrual Age of Menarche: 12 Review of Systems Const Denies chills, Denies fatigue, Denies fever(s), Denies frequent falls, Denies weakness, Denies weight gain and Denies weight loss ENT Denies dizziness Card Denies chest pain, Denies leg edema, Denies lightheadedness, Denies palpitations, Denies dyspnea, Denies dyspnea on exertion, Denies orthopnea and Denies other (loss of consciousness) Resp Denies cough, Denies dyspnea and Denies dyspnea on exertion GI Denies hematochezia and Denies change in stool character Musc Denies abnormal gait, Denies muscle weakness, Denies numbness, Denies radiating pain into limb and Denies tingling Neuro Denies abnormal gait, Denies dizziness, Denies frequent falls, Denies numbness, Denies tingling and Denies weakness Endo Denies fatigue and Denies palpitations Physical Exam Vital Signs: Last Vital Signs Pulse 61 07/19/23 08:44 BP 168/80 H 07/19/23 08:44 BMI result Body Mass Index 30.1 Const General: cooperative, healthy appearing, comfortable and no acute distress Chest Chest palpation & inspection: normal inspection of the chest Resp Effort & Inspection: normal respiratory effort Auscultation: clear to auscultation bilaterally, no rales, no rhonchi and no wheezes Cardio Other: Dressing over ILR site removed and small incision fully intact with no redness, drainage, dehiscence. Edges well approximated, Band-Aid applied Jugular venous distension: no JVD Rate: regular rate Rhythm: regular rhythm Heart sounds: S1 normal heart sound present, S2 normal heart sound present and no murmurs Skin General skin exam: no rashes or lesions noted Psych Appearance: grossly normal Mental Status: mental status grossly normal Speech and movement: Normal speech and movement present Office Procedures EKG Details: EKG shows normal sinus rhythm with normal EKG [id number], Complete Assessment & Plan Assessment & Plan (1) CAD (coronary artery disease): Comment: Bare metal stent to mid LAD. Diffuse moderately severe three-vessel disease with FFR negative, March 2014 Code(s): I25.10 - Atherosclerotic heart disease of [place] coronary artery without angina pectoris Plan: CAD with prior bare metal stent to LAD. Three-vessel coronary artery disease with moderate disease in the past. She has no significant anginal symptoms at current point time on dual antianginal therapy. Continue current therapy. Continue low-dose aspirin therapy. Continue high-intensity statin therapy. Target goal LDL less than 60 mg/dL. Advise annual lipid check. Will obtain lab work from your office. Continue aggressive diabetes management goal hemoglobin A1c less than 7%. (2) HTN (hypertension): Code(s): I10 - Essential (primary) hypertension Plan: Hypertension which is currently well optimized advised to monitor blood pressure at home maintain a log. Goal blood pressure less than 130/84. Advised low- salt diet. Advised heart healthy lifestyle. Importance of good blood pressure control was discussed. Will follow up in the clinic in 1 year's time, sooner p.r.n.. Thank you for allowing me to partake in the care Coding Level of Care Code Est Pt Level 4 (07045) Diagnoses CAD (coronary artery disease) I25.10 HTN (hypertension) I10 CPT Codes EKG - CPT: 00320-[id number], Complete ([id number])
== END 2023-07-19 09:04 | disposition home or self-care (01) ==
PROVIDERS: Visit Provider Internal Medicine Cardiovascular Disease
DX: I25.10 Atherosclerotic heart disease of native coronary artery without angina pectoris (principal); I10 Essential (primary) hypertension
CPT/HCPCS: 93010; 99214

== ENCOUNTER → 2023-07-19 08:41 | Outpatient (BNVA) | payer OTHER, SELFPAY | PROVIDERS: Visit Provider Internal Medicine Cardiovascular Disease | DX: I25.10 Atherosclerotic heart disease of native coronary artery without angina pectoris (principal); I10 Essential (primary) hypertension | CPT/HCPCS: 93005; 99212 ==

== ENCOUNTER 2024-01-09 12:20 | Emergency (ER) | payer OTHER, SELFPAY ==
--- NOTE | ~2024-01-09 | XR_ITS ---
EXAMINATION: XR CHEST CLINICAL INFORMATION: Pain COMPARISON: Chest radiograph from 03/27/2018 TECHNIQUE: Frontal view of the chest was obtained. FINDINGS: Bibasilar atelectasis versus evolving infectious/inflammatory etiology. No pneumothorax. Trachea is midline. Cardiac mediastinal silhouette is stable. Aorta demonstrates atherosclerotic calcifications. No large pleural effusion. Osseous structures are intact. Soft tissues are unremarkable. XR/XR chest 1V IMPRESSION: Bibasilar atelectasis versus evolving infectious/inflammatory etiology.
--- NOTE | 2024-01-09 12:34 | ECG_ITS ---
Test Reason : CHEST PAIN Blood Pressure : / mmHG Vent. Rate : 075 BPM Atrial Rate : 075 BPM P-R Int : 134 ms QRS Dur : 096 ms QT Int : 402 ms P-R-T Axes : 066 006 133 degrees QTc Int : 448 ms Sinus rhythm with occasional Premature ventricular complexes ST & T wave abnormality, consider lateral ischemia Abnormal ECG When compared with ECG of 02-AUG-2021 19:11, Premature ventricular complexes are now Present T wave inversion now evident in Lateral leads Referred By: Generic ED Physician Electronically Signed By:Jean Carlos Freire
--- NOTE | 2024-01-09 12:54 | ED.GENADULT ---
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 The pain gradually subsided and she was able to rest throughout the night, she then states that during restorationist today while she was sitting she again developed substernal chest pain with similar qualities, on occasion she does experience some radiation into her jaw. Related Data Home Medications ?Medication ?Instructions ?Recorded ?Confirmed aspirin 81 mg tablet,delayed 81 mg PO DAILY 09/27/20 07/19/23 release (Adult Low Dose Aspirin) dulaglutide 1.5 mg/0.5 mL 1.5 mg subcut TH@1000 09/27/20 07/19/23 subcutaneous pen injector insulin degludec 100 unit/mL (3 40 unit subcut BEDTIME 09/27/20 07/19/23 mL) subcutaneous pen lisinopril 40 mg tablet 40 mg PO DAILY 09/27/20 07/19/23 metoprolol succinate 25 mg 25 mg PO DAILY 08/03/21 07/19/23 tablet,extended release 24 hr trazodone 50 mg tablet 50 mg PO BEDTIME 09/10/22 07/19/23 Previous Rx's ?Medication ?Instructions ?Recorded atorvastatin 80 mg tablet 80 mg PO DAILY #30 tabs 08/05/21 diclofenac sodium 1 % topical gel 4 g topical QID PRN pain (scale 07/02/23 (Arthritis Pain (diclofenac)) score 1-3) #100 grams prednisone 20 mg tablet 40 mg (2 x 20 mg) PO DAILY 5 days 07/02/23 #10 tabs isosorbide mononitrate 60 mg 60 mg PO DAILY #90 tabs 12/20/23 tablet,extended release 24 hr Allergies Allergy/AdvReac Type Severity Reaction Status Date / Time penicillin V Allergy Unknown rash, hives Verified 01/09/24 12:57 Penicillins [PENICILLINS] Allergy Unknown RASH Verified 01/09/24 12:57 Vinyl Gloves Allergy Unknown rash Verified 01/09/24 12:57 tuberculin, purified protein AdvReac Intermediate RASH Verified 01/09/24 12:57 deriva [TUBERCULIN,PURIF.PROT.DERIV.] transparent dressing AdvReac Rash Verified 01/09/24 12:57 [Tegaderm] Review of Systems Review of Systems: Pertinent positives and negatives as stated in HPI PMFSH Past Medical History Source: nursing notes reviewed Medical History Status post placement of implantable loop recorder Essential hypertension Atherosclerotic cardiovascular disease Tubal ligation evaluation Sinus bradycardia Diastolic dysfunction HTN (hypertension) CAD (coronary artery disease) Surgical History Hx of tubal ligation Stented coronary artery Hx of colonoscopy Hx of cardiac cath Family History Family History Father Cancer Mother Diabetes Social History Social History Household Members: Family Housing: House Do you presently have visiting nurse or other home services: No Alcohol intake: never Patient Tobacco Use Status: Never used Tobacco Second Hand Smoke Exposure: No Advance Directives: Yes Advance Directives Information Provided: Yes Advance Directives on File: No service: No Physical Exam ED Vital Signs: Vital Signs - 24 hr 01/09/24 12:55 01/09/24 13:34 01/09/24 14:41 Temperature 98 F 99.0 F Pulse Rate 71 72 55 Respiratory Rate 16 21 H Blood Pressure 154/74 H 156/53 H Pulse Oximetry 99 98 Oxygen Delivery Method Room Air Room Air 01/09/24 14:42 Temperature 98.3 F Pulse Rate 55 Respiratory Rate 20 Blood Pressure 155/62 H Pulse Oximetry 98 Oxygen Delivery Method Room Air BMI result Body Mass Index 28.5 VITAL SIGNS: Reviewed. GENERAL: Well developed, well nourished, in no acute distress. HEAD: Normocephalic/atraumatic EYES: PERRLA, EOMI EARS: Ext canals without abnormality NOSE: Nares patent bilateral OROPHARYNX: no oral lesions noted, posterior pharynx clear NECK: Supple, no adenopathy LUNGS: Normal breath sounds. No adventitious sounds or accessory muscle use. SpO2<98> CARDIOVASCULAR: Regular rate and rhythm without noted murmurs, no JVD or lower extremity edema. ABDOMEN: Soft, non-tender, non-distended with bowel sounds. MUSCULOSKELETAL: No tenderness, deformities, or effusions noted on gross inspection. EXTREMITIES: No cyanosis, clubbing or edema. SKIN: Inspection of the skin reveals no rashes NEUROLOGIC: Alert and oriented x 4. Strength and sensation to light touch were grossly intact x 4. Course Course Course Narrative: RME- 68 year old female with past medical history significant for coronary artery disease, hypertension presents for evaluation of chest pain that started yesterday. Her pain started while she was walking down the stairs. She normally uses a chair lift to get up and down the stairs. Her pain is constant, 10. She reports taking a nitroglycerin yesterday without improvement. Plan for cardiac workup Medications Administered Discontinued Medications Generic Name Dose Route Start Last Admin Trade Name Freq PRN Reason Stop Dose Admin Aspirin 324 mg 01/09/24 13:38 01/09/24 13:45 Aspirin 81 Mg Tab.Chew PO 01/09/24 13:39 324 mg ONCE ONE Administration Nitroglycerin 0.4 mg 01/09/24 14:25 01/09/24 14:41 Nitroglycerin 0.4 Mg Tab.Subl SUBLINGUAL 01/09/24 14:26 0.4 mg ONCE ONE Administration Medical Decision Making Medical Decision Making MDM Narrative: 68-year-old female with history and clinical presentation, DDX- unstable angina, NSTEMI, low clinical suspicion for GERD/pneumonia/PE INTERVENTION: 324 mg of aspirin, repeat troponin, repeat EKG. HEART Score:8 1425: Re-evaluation, patient reports mild improvement of chest discomfort from 03/25 to 12/23, will provide 0.4 sublingual nitro. I discussed with Dr. Freire. 1451: Recommend starting heparin and nitro drip and transferring to [facility]. I reviewed all investigations and hematologic indices are negative for leukocytosis and patient has a stable normocytic anemia without thrombocytopenia. Coagulation studies are within normal limits. Chemistry indices do not demonstrate any JAYLON or electrolyte/liver enzyme derangements but I sensitivity troponin is noted to be [address] elevations on EKG and BNP is noted to be elevated at 385 without complaints of shortness of breath or any noted hypoxia or tachypnea. Chest x-ray without infiltrate or overt venous congestion. 1504: I informed the patient and her daughter via bankruptcy attorney of the findings and proposed plan. 1506: Dr Can accepts pt to [facility] CCU and ALS transportation has been arranged. Differential Diagnosis Differential Diagnoses: The differential diagnosis associated with the presentation includes Please see the discussion above Admission/Observation Consideration of admission/observation: Escalation of care including admission/observation considered Please see the discussion above Consult Healthcare Provider Management of the patient was discussed with: Director Foundation Please see the discussion above Lab Data MDM Lab Attestation statement: I reviewed the patient's lab results. Please see the discussion above 01/09/24 12:44 01/09/24 12:44 Labs: Lab Results 01/09/24 01/09/24 Range/Units 12:44 13:58 WBC 10.6 (4.8-10.8) X10*3/uL RBC 3.53 L (4.20-5.50) X10*6/uL Hgb 10.7 L (12.0-16.0) g/dl Hct 32.7 L (37.0-47.0) % MCV 92.6 (80.0-98.0) fL MCH 30.3 (27.0-33.0) pg MCHC 32.7 (31.0-35.0) g/dl RDW 13.5 (11.0-16.0) % Plt Count 236 D (160-400) X10*3/uL MPV 9.2 L (9.4-12.3) fL Immature Gran % (Auto) 0.2 (0.0-0.4) % Neut % (Auto) 72.7 (45-73) % Lymph % (Auto) 20.0 (20-40) % Mcpherson % (Auto) 5.8 (2-11) % Eos % (Auto) 0.8 (0-4) % Baso % (Auto) 0.5 (0-2) % Lymph # (Auto) 2.1 (1.2-4.9) X10*3/uL Mcpherson # (Auto) 0.6 (0.1-1.2) X10*3/uL Eos # (Auto) 0.1 (0.0-0.4) X10*3/uL Baso # (Auto) 0.1 (0.0-0.2) X10*3/uL Abs Immat Gran (auto) 0.02 (0.00-0.03) X10*3/uL Absolute Neuts (auto) 7.7 (2.0-8.3) x10*3/uL Absolute Nucleated RBC 0.000 (0.0-0.012) X10*3/uL Nucleated RBC % (auto) 0.0 (0.0-0.2) /100WBC PT 11.5 (11.1-13.3) SEC INR 0.9 (0.9-1.1) APTT 25.4 L (26.0-36.8) SEC Sodium 138 (135-145) mmol/L Potassium 4.0 (3.3-5.1) mmol/L Chloride 102 (96-108) mmol/L Carbon Dioxide 26 (22-29) mmol/L Anion Gap 14 (12-20) BUN 24 H (9-16) mg/dL Creatinine 1.06 (0.5-1.4) mg/dL Estim Creat Clear Calc 48.6 Estimated GFR 52 Random Glucose 202 H (60-115) mg/dL Calcium 9.1 (8.4-10.2) mg/dL Total Bilirubin 0.3 (0.0-1.0) mg/dL AST 20 (5-31) U/L ALT 17 (0-31) U/L Alkaline Phosphatase 69 (39-117) U/L Troponin I High Sens 457.4 H* 414.5 H* (<3.5-17.0) ng/L B-Natriuretic Peptide 385 H (<100) pg/mL Total Protein 7.5 (6.5-8.0) g/dL Albumin 3.9 (3.5-5.0) g/dL Independent Interpretation I performed an independent interpretation of an: EKG Interpretation: 1235: Sinus rhythm with occasional PVC, HR-75, no STEMI, ST/T abnormalities, MA/QRS/QTC is within normal limits. 1351: Sinus rhythm with PVC, HR-65, MA/QRS/QTC is within normal limits, there are ST and T-wave abnormalities. Radiology Impression Discussion of test interpretation with radiology: I have reviewed the radiologist's reading. Radiologist Impression: Please see the discussion above External Record Review External record reviewed: Outpatient record, Prior outpatient labs and Prior outpatient radiology Chronic Conditions Patient?s care impacted by: Diabetes and Hypertension Critical Care Time Critical Care Time Critical Care Time: Yes Total Critical Care Time: 90 Attestation: I personally attest to this time spent taking care of the patient. Discharge Plan Discharge Clinical Impression: Non-ST elevation CA (NSTEMI) Patient Disposition: Xfer [facility] Transfer Details: Increase level of care, CCU Prescriptions: No Action isosorbide mononitrate 60 mg tablet extended release 24 hr 60 mg PO DAILY Qty: 90 3RF metoprolol succinate 25 mg Tablet Extended Release 24 Hr 25 mg PO DAILY atorvastatin 80 mg Tablet 80 mg PO DAILY Qty: 30 0RF diclofenac sodium [Arthritis Pain (diclofenac)] 1 % gel 4 g topical QID PRN (Reason: pain (scale score 1-3)) Qty: 100 0RF Rx Instructions: apply to single knee, ankle, foot; for foot includes sole/toes/top of foot prednisone 20 mg tablet 40 mg PO DAILY 5 Days Qty: 10 0RF dulaglutide 1.5 mg/0.5 mL pen injector 1.5 mg subcut TH@1000 insulin degludec 100 unit/mL (3 mL) insulin pen 40 unit subcut BEDTIME Rx Instructions: PATIENT STATES SHE ONLY TAKES THIS IF HER BLOOD SUGARS ARE OVER 160 lisinopril 40 mg tablet 40 mg PO DAILY aspirin [Adult Low Dose Aspirin] 81 mg tablet,delayed release (DR/EC) 81 mg PO DAILY trazodone 50 mg tablet 50 mg PO BEDTIME Print Language: Maldivian
[2024-01-09 12:55] VITALS: BP 154/74; PULSE 71; RESP 16; TEMP 36.6; O2SAT 99; BMI 28.5
[2024-01-09 13:01] LABS: MANUAL DIFF FLAG NO
[2024-01-09 13:02] LABS: Basophils Absolute Auto 0.1 X10*3/uL (0.0-0.2); Basophils Percent Auto 0.5 % (0-2); Eosinophils Absolute Auto 0.1 X10*3/uL (0.0-0.4); Eosinophils Percent Auto 0.8 % (0-4); Hematocrit 32.7 % (37.0-47.0); Hemoglobin 10.7 g/dl (12.0-16.0); Imm Gran Abs Auto 0.02 X10*3/uL (0.00-0.03); Imm Gran Pct Auto 0.2 % (0.0-0.4); Lymphocytes Absolute Auto 2.1 X10*3/uL (1.2-4.9); Mean Corpuscular HGB Conc 32.7 g/dl (31.0-35.0); Mean Corpuscular Hemoglobin 30.3 pg (27.0-33.0); Mean Corpuscular Volume 92.6 fL (80.0-98.0); Mean Platelet Volume 9.2 fL (9.4-12.3); Monocytes Absolute Auto 0.6 X10*3/uL (0.1-1.2); Monocytes Percent Auto 5.8 % (2-11); Neutrophils Absolute Auto 7.7 x10*3/uL (2.0-8.3); Neutrophils Percent Auto 72.7 % (45-73); Platelet Count 236 X10*3/uL (160-400); Red Blood Count 3.53 X10*6/uL (4.20-5.50); Red Cell Distribution Width 13.5 % (11.0-16.0); White Blood Count 10.6 X10*3/uL (4.8-10.8)
[2024-01-09 13:16] LABS: Alanine Aminotransferase 17 U/L (0-31); Albumin Level 3.9 g/dL (3.5-5.0); Alkaline Phosphatase 69 U/L (39-117); Anion Gap 14 (12-20); Aspartate Amino Transferase 20 U/L (5-31); Bilirubin Total 0.3 mg/dL (0.0-1.0); Blood Urea Nitrogen 24 mg/dL (9-16); Calcium 9.1 mg/dL (8.4-10.2); Carbon Dioxide 26 mmol/L (22-29); Chloride 102 mmol/L (96-108); Creatinine Clr Calc Pharmacy 48.6; Estimated Glomerular Filt Rate 52; Glucose Random 202 mg/dL (60-115); Sodium 138 mmol/L (135-145); Total Protein 7.5 g/dL (6.5-8.0)
[2024-01-09 13:22] LABS: B Type Natriuretic Peptide 385 pg/mL (<100)
[2024-01-09 13:26] LABS: Troponin-I High Sensitivity 457.4 ng/L (<3.5-17.0)
[2024-01-09 13:34] VITALS: BP 156/53; PULSE 72; RESP 21; TEMP 37.2; O2SAT 98
--- NOTE | 2024-01-09 13:36 | ECG_ITS ---
Test Reason : CHEST PAIN Blood Pressure : / mmHG Vent. Rate : 065 BPM Atrial Rate : 065 BPM P-R Int : 122 ms QRS Dur : 094 ms QT Int : 410 ms P-R-T Axes : 064 004 139 degrees QTc Int : 426 ms Sinus rhythm with frequent Premature ventricular complexes ST & T wave abnormality, consider lateral ischemia Abnormal ECG When compared with ECG of 09-JAN-2024 12:35, No significant change was found Referred By: Barbara Beard Electronically Signed By:Jean Carlos Freire
[2024-01-09] MEDS: Aspirin 81 MG TAB.CHEW 324 MG PO (13:45)
[2024-01-09 14:09] LABS: INTERNATIONAL NORM RATIO 0.9 (0.9-1.1); Prothrombin Time 11.5 SEC (11.1-13.3)
[2024-01-09 14:11] LABS: Partial Thromboplastin Time 25.4 SEC (26.0-36.8)
[2024-01-09 14:41] VITALS: PULSE 55
[2024-01-09] MEDS: Nitroglycerin 0.4 MG TAB.SUBL SUBLINGUAL (14:41)
[2024-01-09 14:42] VITALS: BP 155/62; PULSE 55; RESP 20; TEMP 36.8; O2SAT 98
[2024-01-09 14:48] LABS: Troponin-I High Sensitivity 414.5 ng/L (<3.5-17.0)
[2024-01-09 15:04] VITALS: BMI 28.3
[2024-01-09] MEDS: Heparin Sodium,Porcine 5,000 UNIT/ML VIAL 4000 UNIT IVPUSH (15:28)
[2024-01-09] MEDS: Heparin Sodium,Porcine/1/2NS 25,000 UNIT/250 ML IV.SOLN 8.71 UNIT IVCONT (15:32)
[2024-01-09 17:06] LABS: Glucose, Whole Blood 84 mg/dL (60-115)
--- NOTE | 2024-01-09 19:07 | PC.NURSE ---
patient transported to [facility], report given by RN. patient transferred by starr
== END 2024-01-09 19:07 | disposition short-term general hospital (02) ==
PROVIDERS: Physician Assistant; Emergency Provider Student in an Organized Health Care Education/Training Program; PCP Internal Medicine
DX: I21.4 Non-ST elevation (NSTEMI) myocardial infarction (principal); I10 Essential (primary) hypertension; I25.10 Atherosclerotic heart disease of native coronary artery without angina pectoris
CPT/HCPCS: 36415; 71045; 80053; 82947; 83880; 84484; 85025; 85610; 85730; 93005; 96374; 99284; 99285; J1644

== ENCOUNTER → 2024-01-09 12:34 | Outpatient (BNV) | payer OTHER, SELFPAY | PROVIDERS: Emergency Provider Student in an Organized Health Care Education/Training Program; PCP Internal Medicine; Visit Provider Internal Medicine Cardiovascular Disease | DX: R94.31 Abnormal electrocardiogram [ECG] [EKG] (principal) | CPT/HCPCS: 93010 ==

== ENCOUNTER 2024-01-17 08:07 | Outpatient (REF) | payer OTHER, SELFPAY ==
[2024-01-17 08:37] LABS: Hematocrit 29.3 % (37.0-47.0); Hemoglobin 9.6 g/dl (12.0-16.0); Mean Corpuscular HGB Conc 32.8 g/dl (31.0-35.0); Mean Corpuscular Hemoglobin 30.7 pg (27.0-33.0); Mean Corpuscular Volume 93.6 fL (80.0-98.0); Mean Platelet Volume 9.3 fL (9.4-12.3); Platelet Count 255 X10*3/uL (160-400); Red Blood Count 3.13 X10*6/uL (4.20-5.50); White Blood Count 9.4 X10*3/uL (4.8-10.8)
[2024-01-17 08:43] LABS: INTERNATIONAL NORM RATIO 0.9 (0.9-1.1); Prothrombin Time 11.2 SEC (11.1-13.3)
[2024-01-17 09:35] LABS: Anion Gap 14 (12-20); Blood Urea Nitrogen 30 mg/dL (9-16); Calcium 9.3 mg/dL (8.4-10.2); Carbon Dioxide 24 mmol/L (22-29); Chloride 105 mmol/L (96-108); Estimated Glomerular Filt Rate 59; Glucose Random 73 mg/dL (60-115); Potassium 4.4 mmol/L (3.3-5.1); Sodium 139 mmol/L (135-145)
== END 2024-01-17 08:08 | disposition home or self-care (01) ==
LOC: HO.LAB 08:07
PROVIDERS: Visit Provider Internal Medicine Cardiovascular Disease
DX: I21.4 Non-ST elevation (NSTEMI) myocardial infarction (principal)
CPT/HCPCS: 36415; 80048; 85027; 85610

== ENCOUNTER 2024-02-25 11:29 | Outpatient (AMB) | payer OTHER, SELFPAY ==
[2024-02-25 11:36] VITALS: BP 116/64; PULSE 64; BMI 28.5
--- NOTE | 2024-02-25 11:36 | A.OFFVIS_ITS ---
Vital Signs 02/25/24 11:36 Height 5 ft 3 in Weight 160 lb 14.999 oz BMI 28.5 BP 116/64 Blood Pressure Location Lt brachial Position Sitting Pulse 64 Intake Visit Reasons: Follow up post cardiac cath/PCI Intake Note: Follow-up post cardiac cath with PCI Inspector Subassembly Required: Yes Inspector Subassembly Name: family daughter Market Research Worker: Market Research Worker Present Accompanied by: Daughter Allergies penicillin V Allergy (Unknown, Verified 01/09/24 12:57) rash, hives Penicillins [PENICILLINS] Allergy (Unknown, Verified 01/09/24 12:57) RASH Vinyl Gloves Allergy (Unknown, Verified 01/09/24 12:57) rash tuberculin, purified protein deriva [TUBERCULIN,PURIF.PROT.DERIV.] Adverse Reaction (Intermediate, Verified 01/09/24 12:57) RASH transparent dressing [Tegaderm] Adverse Reaction (Verified 01/09/24 12:57) Rash Medication List - Last Reconciled 02/25/24 by Patric Pruett MD aspirin (Adult Low Dose Aspirin) 81 mg PO DAILY atorvastatin 80 mg PO DAILY diclofenac sodium 1% (Arthritis Pain (diclofenac)) 4 grams topical QID PRN docusate sodium 100 mg PO BID dulaglutide 1.5 mg subcut TH@1000 ferrous sulfate 325 mg PO BID insulin degludec 40 units subcut BEDTIME isosorbide mononitrate ER 60 mg PO DAILY lisinopril 40 mg PO DAILY metoprolol succinate ER 25 mg PO DAILY ticagrelor (Brilinta) 90 mg PO BID trazodone 50 mg PO BEDTIME HPI Comments Details: Pia comes for follow-up after recent admission with NSTEMI and subsequently undergoing stenting to the circumflex artery for a culprit lesion. The symptoms were sudden onset chest pressure which she would note for few hours and then sort medical care the next day. Patient subsequently was brought in for cardiac catheterization for staged PCI of the LAD but this was canceled because of low hemoglobin. Since then she had seen GI physician. She denies any bleeding from any site. She was prescribed iron therapy. As per the daughter she had a repeat hemoglobin which as per her is better, this was done at [facility]. I do not have a copy of her results. Patient takes all her medications. She is currently taking dual antiplatelet therapy. She denies any recurrent anginal sounding chest discomfort. She has not started cardiac rehab program as yet. [facility] Medical History (Updated 02/25/24 @ 12:46 by Patric Pruett MD) NSTEMI (non-ST elevated myocardial infarction) Status post placement of implantable loop recorder Essential hypertension Atherosclerotic cardiovascular disease Tubal ligation evaluation Sinus bradycardia Diastolic dysfunction HTN (hypertension) CAD (coronary artery disease) Surgical History (Updated 02/25/24 @ 12:46 by Patric Pruett MD) Hx of tubal ligation Stented coronary artery Hx of colonoscopy Hx of cardiac cath Family History Father Cancer Mother Diabetes Social History Household Members: Family Housing: House Do you presently have visiting nurse or other home services: No Alcohol intake: never Patient Tobacco Use Status: Never used Tobacco Second Hand Smoke Exposure: No service: No Female Reproductive History Menstrual Age of Menarche: 12 Review of Systems Const Denies chills, Denies fatigue, Denies fever(s), Denies frequent falls, Denies weakness, Denies weight gain and Denies weight loss ENT Denies dizziness Card Denies chest pain, Denies leg edema, Denies lightheadedness, Denies palp itations, Denies dyspnea, Denies dyspnea on exertion, Denies orthopnea and Denies other (loss of consciousness) Resp Denies cough, Denies dyspnea and Denies dyspnea on exertion GI Denies hematochezia and Denies change in stool character Musc Denies abnormal gait, Denies muscle weakness, Denies numbness, Denies radiating pain into limb and Denies tingling Neuro Denies abnormal gait, Denies dizziness, Denies frequent falls, Denies numbness, Denies tingling and Denies weakness Endo Denies fatigue and Denies palpitations Physical Exam Vital Signs: Last Vital Signs Pulse 64 02/25/24 11:36 BP 116/64 02/25/24 11:36 BMI result Body Mass Index 28.5 Const General: cooperative, healthy appearing, comfortable and no acute distress Chest Chest palpation & inspection: normal inspection of the chest Resp Effort & Inspection: normal respiratory effort Auscultation: clear to auscultation bilaterally, no rales, no rhonchi and no wheezes Cardio Other: Dressing over ILR site removed and small incision fully intact with no redness, drainage, dehiscence. Edges well approximated, Band-Aid applied Jugular venous distension: no JVD Rate: regular rate Rhythm: regular rhythm Heart sounds: S1 normal heart sound present, S2 normal heart sound present and no murmurs Skin General skin exam: no rashes or lesions noted Psych Appearance: grossly normal Mental Status: mental status grossly normal Speech and movement: Normal speech and movement present Assessment & Plan Assessment & Plan (1) CAD (coronary artery disease): Comment: Bare metal stent to mid LAD. Diffuse moderately severe three-vessel disease with FFR negative, March 2014 Code(s): I25.10 - Atherosclerotic heart disease of [place] coronary artery without angina pectoris Category: Medical Plan: CAD with recent drug-eluting stent to circumflex artery for NSTEMI. Since then she has been doing well. Advised to continue dual antiplatelet therapy uninterrupted for 1 year. She was found to be anemic when she presented back for staged PCI and the procedure was rescheduled. GI consult has been done although do not have a copy of the same. She was started on iron therapy and as per the daughter repeat CBC is within normal limits. Once the hematocrit is above 30, can reschedule for cardiac catheterization. Meanwhile advised her phase 2 cardiac rehabilitation. Continue aggressive risk factor modification including high-intensity statin therapy. Advised lipid panel in 3 months. Advised to call me with any new symptoms. (2) HTN (hypertension): Code(s): I10 - Essential (primary) hypertension Category: Medical Plan: Hypertension which is currently well optimized advised to monitor blood pressure at home maintain a log. Goal blood pressure less than 130/84. Advised low- salt diet. Continue current antihypertensive regimen. Importance of good blood pressure control was discussed. Aggressive diabetes management goal hemoglobin A1c less than 7%. Will follow up in the clinic in 3 months time, sooner p.r.n.. Thank you for allowing me to partake in his care Coding Level of Care Code Est Pt Level 4 (98954) Diagnoses CAD (coronary artery disease) I25.10 HTN (hypertension) I10
== END 2024-02-25 11:58 | disposition home or self-care (01) ==
PROVIDERS: PCP Internal Medicine; Visit Provider Internal Medicine Cardiovascular Disease
DX: I25.10 Atherosclerotic heart disease of native coronary artery without angina pectoris (principal); I10 Essential (primary) hypertension
CPT/HCPCS: 99214

== ENCOUNTER → 2024-02-25 11:29 | Outpatient (BNVA) | payer OTHER, SELFPAY | PROVIDERS: PCP Internal Medicine; Visit Provider Internal Medicine Cardiovascular Disease | DX: I25.10 Atherosclerotic heart disease of native coronary artery without angina pectoris (principal); I10 Essential (primary) hypertension | CPT/HCPCS: 99212 ==

== ENCOUNTER 2024-03-06 08:17 | Outpatient (REF) | payer OTHER, SELFPAY ==
[2024-03-06 09:18] LABS: Hematocrit 29.5 % (37.0-47.0); Hemoglobin 9.5 g/dl (12.0-16.0); Mean Corpuscular HGB Conc 32.2 g/dl (31.0-35.0); Mean Corpuscular Hemoglobin 31.1 pg (27.0-33.0); Mean Corpuscular Volume 96.7 fL (80.0-98.0); Mean Platelet Volume 9.6 fL (9.4-12.3); Platelet Count 223 X10*3/uL (160-400); Red Blood Count 3.05 X10*6/uL (4.20-5.50); Red Cell Distribution Width 14.6 % (11.0-16.0); White Blood Count 7.4 X10*3/uL (4.8-10.8)
== END 2024-03-06 08:18 | disposition home or self-care (01) ==
LOC: HO.LAB 08:17
PROVIDERS: PCP Internal Medicine; Visit Provider Internal Medicine Cardiovascular Disease
DX: I25.10 Atherosclerotic heart disease of native coronary artery without angina pectoris (principal); I63.9 Cerebral infarction, unspecified; R00.1 Bradycardia, unspecified
CPT/HCPCS: 36415; 85027

== ENCOUNTER 2024-03-13 08:52 | Outpatient (REF) | payer OTHER, SELFPAY ==
[2024-03-13 09:22] LABS: Hematocrit 27.9 % (37.0-47.0); Hemoglobin 9.2 g/dl (12.0-16.0); Mean Corpuscular Hemoglobin 31.8 pg (27.0-33.0); Mean Corpuscular Volume 96.5 fL (80.0-98.0); Mean Platelet Volume 9.2 fL (9.4-12.3); Platelet Count 200 X10*3/uL (160-400); Red Blood Count 2.89 X10*6/uL (4.20-5.50); Red Cell Distribution Width 14.6 % (11.0-16.0); White Blood Count 6.8 X10*3/uL (4.8-10.8)
[2024-03-13 09:30] LABS: INTERNATIONAL NORM RATIO 0.9 (0.9-1.1); Prothrombin Time 11.4 SEC (11.1-13.3)
== END 2024-03-13 08:53 | disposition home or self-care (01) ==
LOC: HO.LAB 08:52
PROVIDERS: PCP Internal Medicine; Visit Provider Nurse Practitioner Family
DX: I25.10 Atherosclerotic heart disease of native coronary artery without angina pectoris (principal)
CPT/HCPCS: 36415; 85027; 85610

== ENCOUNTER 2024-03-14 11:28 | Outpatient (REF) | payer OTHER, SELFPAY ==
[2024-03-14 13:02] LABS: Anion Gap 9 (12-20); Blood Urea Nitrogen 16 mg/dL (9-16); Calcium 9.2 mg/dL (8.4-10.2); Carbon Dioxide 27 mmol/L (22-29); Chloride 107 mmol/L (96-108); Estimated Glomerular Filt Rate > 60; Glucose Random 103 mg/dL (60-115); Potassium 4.4 mmol/L (3.3-5.1); Sodium 139 mmol/L (135-145)
== END 2024-03-14 11:29 | disposition home or self-care (01) ==
LOC: HO.LAB 11:28
PROVIDERS: Visit Provider Internal Medicine Cardiovascular Disease
DX: I63.9 Cerebral infarction, unspecified (principal)
CPT/HCPCS: 36415; 80048

== ENCOUNTER → 2024-03-16 23:59 | Outpatient (BNV) | payer OTHER, SELFPAY | PROVIDERS: PCP Internal Medicine; Visit Provider Internal Medicine Cardiovascular Disease | DX: I21.4 Non-ST elevation (NSTEMI) myocardial infarction (principal); I20.89 Other forms of angina pectoris | CPT/HCPCS: 92928; 92978; 99152 ==

== ENCOUNTER 2024-03-27 08:06 | Outpatient (REF) | payer OTHER, SELFPAY ==
[2024-03-27 08:56] LABS: Hematocrit 29.5 % (37.0-47.0); Hemoglobin 9.5 g/dl (12.0-16.0); Mean Corpuscular HGB Conc 32.2 g/dl (31.0-35.0); Mean Corpuscular Hemoglobin 31.7 pg (27.0-33.0); Mean Corpuscular Volume 98.3 fL (80.0-98.0); Mean Platelet Volume 9.4 fL (9.4-12.3); Platelet Count 300 X10*3/uL (160-400); Red Cell Distribution Width 15.8 % (11.0-16.0); White Blood Count 8.2 X10*3/uL (4.8-10.8)
[2024-03-27 09:33] LABS: Cholesterol 105 mg/dL (<200); HDL Cholesterol 31 mg/dL (>40); LDL Cholesterol Calculated 44 mg/dL (<100); Triglycerides 150 mg/dL (<150)
== END 2024-03-27 08:07 | disposition home or self-care (01) ==
LOC: HO.LAB 08:06
PROVIDERS: PCP Internal Medicine; Visit Provider Internal Medicine Cardiovascular Disease
DX: R00.1 Bradycardia, unspecified (principal); I25.10 Atherosclerotic heart disease of native coronary artery without angina pectoris; I10 Essential (primary) hypertension
CPT/HCPCS: 36415; 80061; 85027

== ENCOUNTER 2024-04-06 12:54 | Outpatient (AMB) | payer OTHER, SELFPAY ==
[2024-04-06 13:17] VITALS: BP 160/68; PULSE 64; BMI 27.7
--- NOTE | 2024-04-06 13:17 | A.OFFVIS_ITS ---
Vital Signs 04/06/24 13:17 04/06/24 13:30 Height 5 ft 3 in Weight 156 lb 8.451 oz BMI 27.7 BP 160/68 H 128/58 L Blood Pressure Location Lt brachial Lt brachial Position Sitting Sitting Pulse 64 Pulse Source Pulse Oximeter Intake Visit Reasons: eval for cardiac cath Patternmaker Helper Required: Yes Patternmaker Helper Name: Daughter Allergies penicillin V Allergy (Unknown, Verified 01/09/24 12:57) rash, hives Penicillins [PENICILLINS] Allergy (Unknown, Verified 01/09/24 12:57) RASH Vinyl Gloves Allergy (Unknown, Verified 01/09/24 12:57) rash tuberculin, purified protein deriva [TUBERCULIN,PURIF.PROT.DERIV.] Adverse Reaction (Intermediate, Verified 01/09/24 12:57) RASH transparent dressing [Tegaderm] Adverse Reaction (Verified 01/09/24 12:57) Rash HPI Comments Details: 68-year-old female presents today for a follow-up after cardiac catherization. She reports since then she has been feeling great. She presents with her daughter who is interpreting for her. Appropriate form signed. She reports she no longer has chest pains. She denies shortness of breath and reports her energy levels have been very good. She had seen GI back at the end up January or early February and nothing had been changed. She continues on iron for her anemia. She reports no bleeding issues. [facility] Medical History (Updated 04/06/24 @ 13:41 by Haylie Oliver NP) NSTEMI (non-ST elevated myocardial infarction) Anemia Status post placement of implantable loop recorder Essential hypertension Atherosclerotic cardiovascular disease Tubal ligation evaluation Sinus bradycardia Diastolic dysfunction HTN (hypertension) CAD (coronary artery disease) Surgical History (Updated 04/07/24 @ 10:37 by Haylie Oliver NP) S/P cardiac catheterization Hx of tubal ligation Stented coronary artery Hx of colonoscopy Hx of cardiac cath Family History Father Cancer Mother Diabetes Social History Household Members: Family Housing: House Do you presently have visiting nurse or other home services: No Alcohol intake: never Patient Tobacco Use Status: Never used Tobacco Second Hand Smoke Exposure: No service: No Female Reproductive History Menstrual Age of Menarche: 12 Review of Systems Const Denies weakness ENT Denies dizziness Card Denies chest pain, Denies chest pain with activity, Denies syncope, Denies rapid heart rate, Denies pedal edema, Denies edema, Denies leg edema, Denies lightheadedness, Denies palpitations, Denies dyspnea, Denies dyspnea on exertion and Denies orthopnea Resp Denies cough, Denies dyspnea and Denies dyspnea on exertion GI Denies hematochezia and Denies change in stool character Musc Denies abnormal gait, Denies muscle cramps, Denies muscle weakness, Denies numbness, Denies radiating pain into limb and Denies tingling Neuro Denies abnormal gait, Denies dizziness, Denies syncope, Denies numbness, Denies tingling and Denies weakness Endo Denies palpitations Physical Exam Vital Signs: Last Vital Signs Pulse 64 04/06/24 13:17 BP 128/58 L 04/06/24 13:30 BMI result Body Mass Index 27.7 Assessment & Plan Assessment & Plan (1) Anemia: Code(s): D64.9 - Anemia, unspecified Category: Medical (2) S/P cardiac catheterization: Comment: 04/16/[address] Freire Angiographic Findings Cardiac Arteries and Lesion Findings: LAD: There is a previous stent on Mid LAD Proximal subsection. Lesion in Prox LAD: Mid subsection.95% stenosis 10 mm length. Lesion in 1st Diag: Ostial.90% stenosis . LCx: There is a previous stent on Prox CX Proximal subsection. PCI to LAD Code(s): Z98.890 - Other specified postprocedural states Category: Medical (3) NSTEMI (non-ST elevated myocardial infarction): Comment: December 2023 Code(s): I21.4 - Non-ST elevation (NSTEMI) myocardial infarction Category: Medical (4) HTN (hypertension): Code(s): I10 - Essential (primary) hypertension Category: Medical Plan Status post staged PCI to LAD. Post NSTEMI back in December 2023. Original cardiac catheterization was rescheduled due to low hbg. It was then done on 03/16/2024. Last hemoglobin on 03/27/2024 was 9.5 and hematocrit was 29.5. We will repeat CBC today to ensure stable. She is on Brilinta 90 mg twice a day for a minimum of 12 months and low-dose aspirin indefinitely. Reviewed signs and symptoms of bleeding. She had an LDL drawn on 03/27/2024 which was 44. On atorvastatin 80 mg. On metoprolol succinate 25 mg. We will send for cardiac rehab. Patient is agreeable to plan. Blood pressure was initially high rechecked by me - improved. On lisinopril 40 mg - continue. Monitor blood pressures at home. Heart healthy diet with avoidance of salt discussed. We will follow up in 3 months. Orders: Orders Cardiac Rehab 04/06/24 I21.4 - Non-ST elevation (NSTEMI) myocardial infarction, Z98.890 - Other specified postprocedural states Complete Blood Count Auto Diff 04/06/24 D64.9 - Anemia, unspecified Coding Level of Care Code Est Pt Level 4 (08188) Diagnoses Anemia D64.9 S/P cardiac catheterization Z98.890 NSTEMI (non-ST elevated myocardial infarction) I21.4 HTN (hypertension) I10
[2024-04-06 13:30] VITALS: BP 128/58
== END 2024-04-06 13:55 | disposition home or self-care (01) ==
PROVIDERS: PCP Internal Medicine; Visit Provider Nurse Practitioner
DX: D64.9 Anemia, unspecified (principal); Z98.890 Other specified postprocedural states; I21.4 Non-ST elevation (NSTEMI) myocardial infarction; I10 Essential (primary) hypertension
CPT/HCPCS: 99214

== ENCOUNTER 2024-04-06 12:54 | Outpatient (REF) | payer OTHER, SELFPAY ==
[2024-04-06 14:41] LABS: Basophils Percent Auto 0.4 % (0-2); Eosinophils Percent Auto 0.1 % (0-4); Hematocrit 29.6 % (37.0-47.0); Hemoglobin 9.6 g/dl (12.0-16.0); Imm Gran Abs Auto 0.04 X10*3/uL (0.00-0.03); Imm Gran Pct Auto 0.4 % (0.0-0.4); Lymphocytes Absolute Auto 0.4 X10*3/uL (1.2-4.9); Lymphocytes Percent Auto 4.8 % (20-40); MANUAL DIFF FLAG SCAN; Mean Corpuscular HGB Conc 32.4 g/dl (31.0-35.0); Mean Corpuscular Hemoglobin 31.8 pg (27.0-33.0); Mean Platelet Volume 9.8 fL (9.4-12.3); Monocytes Absolute Auto 0.2 X10*3/uL (0.1-1.2); Monocytes Percent Auto 1.8 % (2-11); Neutrophils Absolute Auto 8.4 x10*3/uL (2.0-8.3); Neutrophils Percent Auto 92.5 % (45-73); Platelet Count 243 X10*3/uL (160-400); Red Blood Count 3.02 X10*6/uL (4.20-5.50); Red Cell Distribution Width 14.9 % (11.0-16.0); SCAN SMEAR FLAG 1; White Blood Count 9.1 X10*3/uL (4.8-10.8)
[2024-04-06 15:00] LABS: SLIDE REVIEW VERIFIED
== END 2024-04-06 12:55 | disposition home or self-care (01) ==
LOC: HO.LAB 12:54
PROVIDERS: PCP Internal Medicine; Visit Provider Nurse Practitioner
DX: Z98.890 Other specified postprocedural states (principal); D64.9 Anemia, unspecified; I21.4 Non-ST elevation (NSTEMI) myocardial infarction
CPT/HCPCS: 36415; 85025; 99212

== ENCOUNTER 2024-07-03 14:32 | Outpatient (AMB) | payer OTHER, SELFPAY ==
[2024-07-03 15:03] VITALS: BP 142/50; PULSE 64; BMI 29.1
--- NOTE | 2024-07-03 15:03 | A.OFFVIS_ITS ---
Vital Signs 07/03/24 15:03 Height 5 ft 3 in Weight 164 lb 7.437 oz BMI 29.1 BP 142/50 H Blood Pressure Location Lt brachial Position Sitting Pulse 64 Pulse Source Palpation Intake Visit Reasons: 3M FOLLOW UP Telecommunications Officer Required: Yes Telecommunications Officer Language: Cop Winder Name: voice mora [id number] Allergies penicillin V Allergy (Unknown, Verified 07/03/24 15:05) rash, hives Penicillins [PENICILLINS] Allergy (Unknown, Verified 07/03/24 15:05) RASH Vinyl Gloves Allergy (Unknown, Verified 07/03/24 15:05) rash tuberculin, purified protein deriva [TUBERCULIN,PURIF.PROT.DERIV.] Adverse Reaction (Intermediate, Verified 07/03/24 15:05) RASH transparent dressing [Tegaderm] Adverse Reaction (Verified 07/03/24 15:05) Rash Medication List - Last Reconciled 07/03/24 by Eli Rider NEUROBIOLOGIST-C aspirin (Adult Low Dose Aspirin) 81 mg PO DAILY atorvastatin 80 mg PO DAILY diclofenac sodium 1% (Arthritis Pain (diclofenac)) 4 grams topical QID PRN docusate sodium 100 mg PO BID dulaglutide 1.5 mg subcut TH@1000 ferrous sulfate 325 mg PO BID insulin degludec 40 units subcut BEDTIME isosorbide mononitrate ER 60 mg PO DAILY lisinopril 40 mg PO DAILY methotrexate sodium 2.5 mg PO metoprolol succinate ER 25 mg PO DAILY ticagrelor (Brilinta) 90 mg PO BID 90 days trazodone 50 mg PO BEDTIME HPI HPI 3M FOLLOW UP: Details: Pia is a 68-year-old female with past medical history hypertension, hyperlipidemia, CAD, stent to the LAD, moderate diffuse 3 vessel disease on catheterization 03/2014, CVA with ILR placement ( now removed) without finding of AFib who was seen at [facility] 01/09/2024 with chest discomfort, ruled in for NSTEMI. She was transferred to [facility] for cardiac catheterization and had stent placed to the left circumflex artery. She also had residual LAD stenosis and was taken for staged PCI a few months later. She now presents for follow-up. Today she reports that she has been doing well since her last visit in March. She has no chest discomfort at rest or with exertion. No shortness of breath, PND, orthopnea or edema. No heart palpitations, lightheadedness, presyncope, syncope, falls. She has been compliant with her medications. She went to a few sessions of cardiac rehab but had to stop due to worsening of her arthritis pains. Certified hourly sign language interpreter used. [facility] Medical History History of breast cancer NSTEMI (non-ST elevated myocardial infarction) Anemia Status post placement of implantable loop recorder Essential hypertension Atherosclerotic cardiovascular disease Sinus bradycardia Diastolic dysfunction HTN (hypertension) CAD (coronary artery disease) Surgical History (Updated 07/03/24 @ 17:52 by Eli Rider, CHARU-C) S/P cardiac catheterization Hx of tubal ligation Stented coronary artery Hx of colonoscopy Hx of cardiac cath Family History Father Cancer Mother Diabetes Social History Household Members: Family Housing: House Do you presently have visiting nurse or other home services: No Alcohol intake: never Patient Tobacco Use Status: Never used Tobacco Second Hand Smoke Exposure: No service: No Female Reproductive History Menstrual Age of Menarche: 12 Review of Systems Const All systems reviewed & are unremarkable except as noted in HPI and below ENT Denies dizziness Card Denies chest pain, Denies chest pain at rest, Denies chest pain with activity, Denies rapid heart rate, Denies pedal edema, Denies edema, Denies leg edema, Denies lightheadedness, Denies palpitations, Denies dyspnea, Denies dyspnea on exertion and Denies orthopnea Resp Denies cough, Denies dyspnea and Denies dyspnea on exertion GI Denies hematochezia and Denies change in stool character Musc Denies abnormal gait, Denies limited range of motion, Denies muscle cramps, Denies muscle weakness, Denies numbness, Denies radiating pain into limb, Denies stiffness and Denies tingling Neuro Denies abnormal gait, Denies dizziness, Denies numbness and Denies tingling Endo Denies palpitations Physical Exam Vital Signs: Last Vital Signs Pulse 64 07/03/24 15:03 BP 142/50 H 07/03/24 15:03 BMI result Body Mass Index 29.1 Const General: cooperative, healthy appearing, comfortable and no acute distress Resp Effort & Inspection: normal respiratory effort Auscultation: clear to auscultation bilaterally, no rales, no rhonchi and no wheezes Cardio Jugular venous distension: no JVD Rate: regular rate Rhythm: regular rhythm Heart sounds: S1 normal heart sound present, S2 normal heart sound present and no murmurs Skin General skin exam: no rashes or lesions noted Psych Appearance: grossly normal Mental Status: mental status grossly normal Speech and movement: Normal speech and movement present Assessment & Plan Assessment & Plan (1) CAD (coronary artery disease): Comment: Bare metal stent to mid LAD. Diffuse moderately severe three-vessel disease with FFR negative, March 2014 Code(s): I25.10 - Atherosclerotic heart disease of [place] coronary artery without angina pectoris Category: Medical Plan: History of CAD with remote bare metal stent to the mid LAD. She had NSTEMI 01/09/2024 and underwent cardiac catheterization showing proximal left circumflex 99% stenosis, FIFI was placed. She still had residual proximal LAD stenosis. She was taken back for staged PCI 03/16/2024 which then showed proximal LAD 95% stenosis, FIFI placed, 1st diagonal 90% stenosis, angioplasty done. Today she reports she has been doing well with no chest discomfort at rest or with activity. She did attend a few sessions of cardiac rehab but needed to stop due to issues with her arthritis. Will have her continue on aspirin indefinitely, Brilinta uninterrupted for at least 1 year post most recent stent, 03/16/2025. Continue high-dose atorvastatin with ideal LDL goal less than 70. Labs done 03/27/2024 showed LDL 44. Continue metoprolol and isosorbide. Signs and symptoms of angina reviewed with her. Cardiology follow-up in 4 months, sooner if needed. A (2) HTN (hypertension): Code(s): I10 - Essential (primary) hypertension Category: Medical Plan: Mildly elevated this visit. Meds reviewed and no changes made. Discussed low- salt diet, increasing physical activity as able. If blood pressure remains elevated at follow-up then she may need an alternate antihypertensive med. Her resting heart rate is in the 60s, continue metoprolol at current dose. Lisinopril is currently at 40 mg daily. (3) Stented coronary artery: Comment: Bare metal stent to LAD. Drug-eluting stent to proximal circumflex artery for NSTEMI, December 2023. Residual LAD disease 70% Code(s): Z95.5 - Presence of coronary angioplasty implant and graft Category: Surgical (4) NSTEMI (non-ST elevated myocardial infarction): Comment: December 2023 Code(s): I21.4 - Non-ST elevation (NSTEMI) myocardial infarction Category: Medical Plan: As above (5) S/P cardiac catheterization: Comment: 03/16/[address] Freire Angiographic Findings Cardiac Arteries and Lesion Findings: LAD: There is a previous stent on Mid LAD Proximal subsection. Lesion in Prox LAD: Mid subsection.95% stenosis 10 mm length. Lesion in 1st Diag: Ostial.90% stenosis . LCx: There is a previous stent on Prox CX Proximal subsection. PCI to LAD Code(s): Z98.890 - Other specified postprocedural states Category: Surgical Plan: Right radial catheterization site well healed (6) S/P cardiac cath: Comment: 01/11/2024, left main normal, lad mid stent patent, lad proximal 75% stenosis, left circumflex proximal 99% stenosis, FIIF placed, RCA distal 60% stenosis Code(s): Z98.890 - Other specified postprocedural states Category: Surgical Plan: As above Plan Time spent on chart review, documentation, interview and assessment Coding Level of Care Code Est Pt Level 4 (49814) Complex EM visit Add On G2211 Diagnoses CAD (coronary artery disease) I25.10 HTN (hypertension) I10 Stented coronary artery Z95.5 NSTEMI (non-ST elevated myocardial infarction) I21.4 S/P cardiac catheterization Z98.890 Time Spent (min) 28
== END 2024-07-03 15:29 | disposition home or self-care (01) ==
PROVIDERS: PCP Internal Medicine; Visit Provider Nurse Practitioner Family
DX: I25.10 Atherosclerotic heart disease of native coronary artery without angina pectoris (principal); I10 Essential (primary) hypertension; Z95.5 Presence of coronary angioplasty implant and graft; I21.4 Non-ST elevation (NSTEMI) myocardial infarction; Z98.890 Other specified postprocedural states
CPT/HCPCS: 99214; G2211

== ENCOUNTER → 2024-07-03 14:32 | Outpatient (BNVA) | payer OTHER, SELFPAY | PROVIDERS: PCP Internal Medicine; Visit Provider Nurse Practitioner Family | DX: I25.10 Atherosclerotic heart disease of native coronary artery without angina pectoris (principal); I10 Essential (primary) hypertension; I25.2 Old myocardial infarction; E78.5 Hyperlipidemia, unspecified; Z95.5 Presence of coronary angioplasty implant and graft; Z98.890 Other specified postprocedural states | CPT/HCPCS: 99212 ==

== ENCOUNTER 2024-07-10 08:16 | Outpatient (AMB) | payer OTHER, SELFPAY ==
--- NOTE | 2024-07-10 08:22 | A.OFFVIS_ITS ---
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 annual exam/DO NOT R/S Charge Nurse Required: Yes Charge Nurse Language: Fixed Income Analyst Services: Charge Nurse Present (in person) Charge Nurse Name: BEVERLY Kim Information Interpreted: non-clinical & clinical Horticulture/Floriculture Teacher: Horticulture/Floriculture Teacher Present (Zoe) Accompanied by: Self / Same As Patient Allergies penicillin V Allergy (Unknown, Verified 07/10/24 08:24) rash, hives Penicillins [PENICILLINS] Allergy (Unknown, Verified 07/10/24 08:24) RASH Vinyl Gloves Allergy (Unknown, Verified 07/10/24 08:24) rash tuberculin, purified protein deriva [TUBERCULIN,PURIF.PROT.DERIV.] Adverse Reaction (Intermediate, Verified 07/10/24 08:24) RASH transparent dressing [Tegaderm] Adverse Reaction (Verified 07/10/24 08:24) Rash HPI Comments Details: Presenting for annual exam. No complaints. Last Pap/HPV was in 02/03 was negative, the patient has been adequately screened screening 55 and 65 with no history of abnormal Pap smears in the past Last Mammogram was recent done in 02/06 at [facility] according to the patient, no reports available Last Colonoscopy was in 2019, the recommendation was to repeat in 5 years, the patient is in the process of scheduling her GI appointment Last DEXA scan was done in 2022 at [facility], no evidence of osteoporosis according to the patient, no reports available [facility] Medical History History of breast cancer NSTEMI (non-ST elevated myocardial infarction) Anemia Status post placement of implantable loop recorder Essential hypertension Atherosclerotic cardiovascular disease Sinus bradycardia Diastolic dysfunction HTN (hypertension) CAD (coronary artery disease) Surgical History S/P cardiac catheterization Hx of tubal ligation Stented coronary artery Hx of colonoscopy Hx of cardiac cath Family History Father Cancer Mother Diabetes Social History Household Members: Family Housing: House Do you presently have visiting nurse or other home services: No Alcohol intake: never Patient Tobacco Use Status: Never used Tobacco Second Hand Smoke Exposure: No service: No Female Reproductive History Menstrual Age of Menarche: 12 control method: permanent sterilization Menopause type: natural Total pregnancies: 5 Full term: 5 Date of last pap smear: 02/07/21 (negative pap smear, negative hpv) Date of Mammogram: 03/04/23 Date of last Bone Density Screenin03/04/23 Review of Systems Const All systems reviewed & are unremarkable except as noted in HPI and below Card Reports as per HPI Resp Reports as per HPI GI Reports as per HPI and Reports no additional complaints Reports as per HPI Physical Exam Vital Signs: Last Vital Signs BP 130/62 07/10/24 08:31 BMI result Body Mass Index 28.7 Const General: cooperative, healthy appearing and comfortable Chest Chest palpation & inspection: normal inspection of the chest and normal palpation of entire chest wall Breast/axilla inspection: normal inspection of the breasts and normal inspection of the axillae Breast/axilla palpation: normal palpation of the breasts, normal palpation of the axillae and no axillary lymphadenopathy Resp Effort & Inspection: normal respiratory effort Auscultation: clear to auscultation bilaterally Percussion: percussion normal Cardio Palpation: normal PMI Rate: regular rate Rhythm: regular rhythm Heart sounds: no murmurs and no rubs Peripheral pulses: Peripheral pulses 2+ throughout GI Inspection: Yes normal to inspection Palpation (GI): Soft to palpation, nontender, no guarding, not rigid and No hepatosplenomegaly present Percussion: Yes normal to percussion Auscultation: normal bowel sounds Rectal Exam - Female: deferred General: Yes bladder normal to palpation External Female Exam: No lesion Speculum Exam - Vagina: normal appearance of the vagina, normal palpation, normal vaginal discharge and not erythematous Speculum Exam - Cervix: normal appearance of the cervix and normal palpation Bimanual exam- vagina & uterus: normal bimanual exam, normal palpation, uterine size normal, bladder normal to palpation, consistency normal and normal palpation Bimanual Exam- Adnexa, other: normal adnexae, no masses and no tenderness Assessment & Plan Assessment & Plan (1) Well woman exam: Code(s): Z01.419 - Encounter for gynecological examination (general) (routine) without abnormal findings Category: Medical Plan: Co testing not indicated since the patient 's age is above 65 with no history of abnormal Pap smears last 25 years. Counseled the patient about the recommended dietary allowance of 1200 mg of Calcium & 800 IU of vitamin D. The patient was instructed to perform monthly self-breast exams and to schedule a 2 week DEXA scan follow-up appointment and an annual exam in a year; All questions answered and the patient verbalized understanding. Coding Level of Care Code Est Pt Prev Care >65y(02447) Diagnoses Well woman exam Z01.419
[2024-07-10 08:31] VITALS: BP 130/62; BMI 28.7
== END 2024-07-10 08:52 | disposition home or self-care (01) ==
LOC: HO.HWS 08:16
PROVIDERS: PCP Internal Medicine; Visit Provider Obstetrics & Gynecology
DX: Z01.419 Encounter for gynecological examination (general) (routine) without abnormal findings (principal)
CPT/HCPCS: 99397

== ENCOUNTER → 2024-07-10 08:16 | Outpatient (BNVA) | payer OTHER, SELFPAY | PROVIDERS: PCP Internal Medicine; Visit Provider Obstetrics & Gynecology | DX: Z01.419 Encounter for gynecological examination (general) (routine) without abnormal findings (principal) | CPT/HCPCS: 99397 ==

== ENCOUNTER 2024-10-30 13:59 | Outpatient (AMB) | payer OTHER, SELFPAY ==
[2024-10-30 14:13] VITALS: BP 104/62; PULSE 58; BMI 28.5
--- NOTE | 2024-10-30 14:13 | MHC.OFFVIS ---
Vital Signs 10/30/24 14:13 Height 5 ft 3 in Weight 160 lb 14.999 oz BMI 28.5 BP 104/62 Blood Pressure Location Lt brachial Position Sitting Pulse 58 Intake Visit Reasons: 4m follow up Intake Note: 4 month follow-up feeling good would like rx for nitro prn Binding Machine Operator Required: Yes Binding Machine Operator Services: Binding Machine Operator Present Binding Machine Operator Name: jaquelin ritchie Allergies penicillin V Allergy (Unknown, Verified 07/10/24 08:24) rash, hives Penicillins [PENICILLINS] Allergy (Unknown, Verified 07/10/24 08:24) RASH Vinyl Gloves Allergy (Unknown, Verified 07/10/24 08:24) rash tuberculin, purified protein deriva [TUBERCULIN,PURIF.PROT.DERIV.] Adverse Reaction (Intermediate, Verified 07/10/24 08:24) RASH transparent dressing [Tegaderm] Adverse Reaction (Verified 07/10/24 08:24) Rash Medication List - Last Reconciled 10/30/24 by Patric Pruett MD aspirin (Adult Low Dose Aspirin) 81 mg PO DAILY atorvastatin 80 mg PO DAILY docusate sodium 100 mg PO BID dulaglutide 1.5 mg subcut TH@1000 ferrous sulfate 325 mg PO BID insulin degludec 40 units subcut BEDTIME isosorbide mononitrate ER 60 mg PO DAILY lisinopril 40 mg PO DAILY methotrexate sodium 2.5 mg PO metoprolol succinate ER 25 mg PO DAILY ticagrelor (Brilinta) 90 mg PO BID 90 days trazodone 50 mg PO BEDTIME HPI Comments Details: Pia comes for follow-up. History was obtained with help of woodworking machine feeder in the room. Patient denies any significant cardiac symptoms. Denies any exertional chest pain or shortness of breath. She says she exercise regularly and denies any exertional symptoms. Takes all her medications. No bleeding issues or neurologic events. Denies any prolonged palpitation irregular heartbeat. Last LDL was well optimized done in March at 44 mg/dL. Denies any heart failure symptoms. [facility] Medical History (Updated 10/30/24 @ 14:32 by Patric Pruett MD) NSTEMI (non-ST elevated myocardial infarction) History of breast cancer Anemia Status post placement of implantable loop recorder Essential hypertension Atherosclerotic cardiovascular disease Sinus bradycardia Diastolic dysfunction HTN (hypertension) CAD (coronary artery disease) Surgical History (Updated 10/30/24 @ 14:32 by Patric Pruett MD) S/P cardiac catheterization S/P cardiac cath Stented coronary artery Hx of tubal ligation Hx of colonoscopy Hx of cardiac cath Family History Father Cancer Mother Diabetes Social History Household Members: Family Housing: House Do you presently have visiting nurse or other home services: No Alcohol intake: never Patient Tobacco Use Status: Never used Tobacco Second Hand Smoke Exposure: No service: No Female Reproductive History Menstrual Age of Menarche: 12 Review of Systems Const Denies chills, Denies fatigue, Denies fever(s), Denies frequent falls, Denies weakness, Denies weight gain and Denies weight loss ENT Denies dizziness Card Denies chest pain, Denies leg edema, Denies lightheadedness, Denies palpitations, Denies dyspnea, Denies dyspnea on exertion, Denies orthopnea and Denies other (loss of consciousness) Resp Denies cough, Denies dyspnea and Denies dyspnea on exertion GI Denies hematochezia and Denies change in stool character Musc Denies abnormal gait, Denies muscle weakness, Denies numbness, Denies radiating pain into limb and Denies tingling Neuro Denies abnormal gait, Denies dizziness, Denies frequent falls, Denies numbness, Denies tingling and Denies weakness Endo Denies fatigue and Denies palpitations Physical Exam Vital Signs: Last Vital Signs Pulse 58 10/30/24 14:13 BP 104/62 10/30/24 14:13 BMI result Body Mass Index 28.5 Const General: cooperative, healthy appearing, comfortable and no acute distress Neck Neck: Yes trachea midline, Yes supple and Yes no JVD Carotids: bruit on the left Chest Chest palpation & inspection: normal inspection of the chest Resp Effort & Inspection: normal respiratory effort Auscultation: clear to auscultation bilaterally, no rales, no rhonchi and no wheezes Cardio Other: Dressing over ILR site removed and small incision fully intact with no redness, drainage, dehiscence. Edges well approximated, Band-Aid applied Jugular venous distension: no JVD Rate: regular rate Rhythm: regular rhythm Heart sounds: S1 normal heart sound present, S2 normal heart sound present and no murmurs Skin General skin exam: no rashes or lesions noted Psych Appearance: grossly normal Mental Status: mental status grossly normal Speech and movement: Normal speech and movement present Assessment & Plan Assessment & Plan (1) CAD (coronary artery disease): Comment: Bare metal stent to mid LAD. Diffuse moderately severe three-vessel disease with FFR negative, March 2014 Code(s): I25.10 - Atherosclerotic heart disease of [place] coronary artery without angina pectoris Category: Medical Plan: Coronary artery disease with prior bare metal stent to LAD and subsequently last year undergoing drug-eluting stent to circumflex as well as staged PCI to LAD in March of 2024. Since then she has been done well. She is currently on dual antiplatelet therapy which will continue till March of 2025. Lifelong aspirin therapy beyond that. Management and importance of medical therapy was discussed. Continue aggressive risk factor modification with goal hemoglobin A1c less than 7% with aggressive diabetes management. Continue aggressive blood pressure control which is currently well optimized see below. Continue high-intensity statin therapy with target goal LDL less than 55 mg/dL. Advised lipid panel in near future. Encouraged to continue maintain activity level as tolerated. Noted left carotid bruit, will obtain a carotid duplex to rule out any significant carotid stenosis (2) HTN (hypertension): Code(s): I10 - Essential (primary) hypertension Category: Medical Plan: Hypertension which is currently well optimized advised to monitor blood pressure at home maintain a log. Goal blood pressure less than 130/84. Low-salt diet was discussed. Continue maintain activity level as tolerated. Will follow up in the clinic in 6 months time, sooner p.r.n.. Thank you for allowing me to partake in her care Coding Level of Care Code Est Pt Level 4 (00832) Complex EM visit Add On G2211 Diagnoses CAD (coronary artery disease) I25.10 HTN (hypertension) I10
--- OUTSIDE RECORDS SUMMARY | 2024-10-30 16:28 | XMS_ITS | Encounter Summary ---
Author Organization [facility] Address [address] [place] [address] Care Team Providers Care Animal Ride Attendant Name Role Phone Teena Rosas MD Primary Care Prov ider Reason for Visit * Reason Onset Date Comments Fitting for DME 09/29/2024 Encounter Details Date Type Department Care Team (Late st Contact Info) Description 09/29/2024 Telephone Adult Medicine [address] [phone] Caryn Chandra LPN Fitting for DME Social History Tobacco Use Types Packs/Day Years Used Date Smoking Tobacco: Never Smokeless Tobacco: Never Housing Instability Answer Date Recorde d Are you worried that in the next 2 months you may not have stable housing? No 09/29/2024 Food Access & Nutrition Answer Date Rec orded Do you have access to a vari ety of food including fruits and vegetables? Yes 09/29/2024 Health Literacy Answer Date Recorded How often do you need to hav e someone help you when you read instructions, pamphlets, or other written material from your doctor or pharmacy? Never 09/29/2024 Caregiver: How often do you need to have someone help you when you read instructions, pamphlets, or other written material from your doctor or pharmacy? Not on file 09/29/2024 Financial Risk Answer Date Recorded How hard is it for you to pa y for the very basics like food, housing, medical care, and air conditioning / heating? Not very hard 09/29/2024 Transportation Answer Date Recorded Has the lack of transportati on kept you from meetings, work, or from getting things needed for daily living? No Has the lack of transportati on kept you from medical appointments or from getting medications? No 09/29/2024 Social Isolation Answer Date Recorded How often do you feel lonely or isolated from th ose around you? Never 09/29/2024 Food Risk Answer Date Recorded Within the past 12 months we worried whether our food would run out before we got money to buy more. Never true 09/29/2024 Within the past 12 months th e food we bought just didn't last and we didn't have money to get more. Never true 09/29/2024 Dependent Care Answer Date Recorded Do you need help finding or paying for care for your loved ones. For example, child and family services worker or elderly care for an older adult? No 09/29/2024 Education Answer Date Recorded Do you think completing more education or training, like finishing a GED, going to college, or learning a trade, would be helpful for you? No 09/29/2024 Employment and Income Answer Date Recor ded During the last four weeks, have you been actively looking for work? No 09/29/2024 Living Situation Answer Date Recorded What is your living situation? 0 09/29/2024 Comments Unknown Sex and Gender Information Value Date Recorded Sex Assigned at Not on file Legal Sex Female 10:56 PM EST Gender Identity Not on file Sexual Orientation Not on file documented as of this encounter Progress Notes * Caryn Chandra LPN - 10/02/2024 1:44 PM EST Form signed and faxed to [facility] @ [phone] * Caryn Chandra LPN - 10/02/2024 10:30 AM EST Rx signed and faxed to [facility] @ [phone] process for CCA Also added into portal * Caryn Chandra LPN - 09/29/2024 12:30 PM EST Received request from Dr Daniela Alonzo that pt needs a shower chair Called pt to see what type of shower chair she needs Shower chair with back and arms I did explain to her that the prescription will be faxed to [facility] to process for CCA Rx to Dr Daniela Alonzo to sign documented in this encounter Plan of Treatment Upcoming Encounters Date Type Department Care Team (Late st Contact Info) Description 03/20/2025 8:30 AM EDT Appointment Radiology Department - [address] [phone] 03/30/2025 8:30 AM EDT Office Visit Adult [facility] - [address] [phone] Teena Rosas MD [address] [place] [address] documented as of this encounter Visit Diagnoses Diagnosis Rheumatoid arthritis, involving unspecified site, unspecified whether rheumatoid factor present ([facility])- Primary Type 2 diabetes mellitus with diabetic neuropathy, without long-term current use of insulin ([facility]) Encounter for screening mammogram for breast cancer documented in this encounter Orders General Supply Count Last Ordered Date First Or dered Date SHOWER CHAIR 1 09/29/2024 documented in this encounter Care Teams Animal Ride Attendant Relationship Specialty Start Date End Date Teena Rosas MD [address] [place] [address] PCP - General Internal Medicine 08/23/24 documented as of this encounter
--- OUTSIDE RECORDS SUMMARY | 2024-10-30 16:28 | XMS_ITS | Clinical Summary ---
Author Organization [facility] [address] [facility] Address [address] [place] [address] Phone Care Team Providers Care Stopper Maker Helper Name Role Phone Teena Rosas MD Primary Care Prov ider Allergies Active Allergy Reactions Criticality Noted Date Comments Latex 07/21/2018 Other 08/27/2017 Gloves Vinyl Penicillins 08/27/2017 Other Reaction(s): Rash/Dermatitis Medications acetaminophen (TYLENOL) 500 mg tablet Take 500 mg by mouth. Active aspirin 81 mg EC tablet Take 1 Tab by mouth daily. 03/22/20 18 Active pen needle, diabetic (BD Ultra-Fine Mini Pen Needle) 31 gauge x 3/16 needle B-D U/F PEN NEEDLE 31G X 5 MM [facility] USE WITH TRESIBA. DX: E11.49 02/22/20 19 Active blood-glucose meter misc BLOOD GLUCOSE MONITORING SUPPL (FIFTY50 GLUCOSE METER 2.0) W/DEVICE KIT Use as instructed 04/21/20 18 Active blood-glucose meter kit Blood Glucose Monitoring Suppl (ONE TOUCH ULTRA 2) w/Device Kit Use as instructed 05/05/20 18 Active blood-glucose sensor (Dexcom G7 Sensor) device USE DIRECTED EVERY 10 DAYS 02/02/20 24 Active ezetimibe (ZETIA) 10 mg tablet Take 1 Tablet by mouth daily. 11/25/19 23 Active folic acid (FOLVITE) 1 mg tablet Take 1 Tablet by mouth. 02/21/20 24 Active glucose blood test strip GLUCOSE BLOOD TEST STRIPS (PRECISION QID TEST) STRIP 1 Each. 10/12/19 19 Active insulin degludec (Tresiba FlexTouch U-100) 100 unit/mL (3 mL) injection pen Inject into the skin. Inject 10 units at bedtime Active isosorbide mononitrate (IMDUR) 60 mg 24 hr tablet Take 1 Tablet by mouth daily. 06/05/20 22 Active methotrexate 2.5 mg tablet Take 8 Tablets by mouth. 01/30/20 24 Active metoprolol succinate (TOPROL-XL) 25 mg 24 hr tablet Take 1 Tablet by mouth daily. 02/14/20 24 Active ticagrelor (BRILINTA) 90 mg tablet Take 90 mg by mouth. 01/12/20 24 Active traZODone (DESYREL) 50 mg tablet Take 1 Tablet by mouth at bedtime. Active dulaglutide (Trulicity) 0.75 mg/0.5 mL pen injector injection Inject 0.5 mL (0.75 mg total) under the skin every 7 (seven) days. Active atorvastatin (LIPITOR) 80 mg tablet TAKE 1 TABLET BY MOUTH EVERY DAY 90 tablet 1 10/02/19 25 Active lisinopril (PRINIVIL,ZESTR IL) 40 mg tablet TAKE 1 TABLET BY MOUTH EVERY DAY 90 tablet 1 10/02/19 25 Active atorvastatin (LIPITOR) 80 mg tablet Take 1 Tablet by mouth daily. 02/14/20 24 025 Discontinued lisinopril (PRINIVIL,ZESTR IL) 40 mg tablet Take 1 Tablet by mouth daily. 02/14/20 24 025 Discontinued Active Problems Problem Noted Date Diagnosed Date Rheumatoid arthritis 05/16/2024 Assessment & Plan (10/02/2024 7:42 AM EST): Following with rheum at [email or web address]. On Methotrexate. Not taking Folic acid. Osteopenia 03/08/2023 Overview (05/16/2024): Result Date: 03/04/2023 BONE DENSITY Lumbar Spine T-score is -0.7 (SD relative to 20-29 y/o adult) Z-score is +1.2 (SD relative to age matched peers) This is normal by criteria defined by the WHO. Left Hip T-score is -2.0 Z-score is -0.5 This is consistent with osteopenia by criteria defined by the WHO. Impression: Based on the World Health Organization criteria, Pia Holguin should be classified as having osteopenia. This patient has a 5.9% risk of major osteoporotic fracture and a 0.9risk of hip fracture over the next 10 years. (World Health Organization Fracture Risk Assessment) [facility] Department of Internal Medicine recommends using National Osteoporosis Foundation (NOF) guidelines in treatment decisions related to osteoporosis. NOF guidelines suggest considering treatment for postmenopausal women and men aged 50 or older presenting with the following: History of hip or vertebral fracture. T-score less than or equal to -2.5 (DXA) at the femoral neck, total hip, or spine, after appropriate evaluation to exclude secondary causes. Low bone mass (T-score between -1.0 and -2.5 at the femoral neck or spine) AND a 10-year probability of a hip fracture greater than or equal to 3% OR a 10-year probability of a major osteoporosis-related fracture greater than or equal to 20% based on the US- adapted WHO algorithm Please note that all treatment decisions require clinical judgment and consideration of individual patient factors, including patient preferences, co-morbidities, previous drug use, risk factors not captured in the FRAX model (e.g., frailty, falls, vitamin D deficiency, increased bone turnover, interval significant decline in bone density) and possible under- or over-estimation of fracture risk by FRAX. Vitiligo 01/26/2019 Old SD (myocardial infarction) 11/18/2017 Fibromyalgia 09/09/2017 Anxiety 08/27/2017 Overview (05/16/2024): Sees psychiatrist Hyperlipidemia 08/27/2017 Assessment & Plan (10/02/2024 7:42 AM EST): Given the patients cardiac risk profile, the patient requires an LDL cholesterol of less than 70 on target. Continue atorvastatin 80 mg, Zetia 10 mg a day. I have instructed the patient on the principles of a low cholesterol diet and the importance of regular exercise. Hypertension 08/27/2017 Assessment & Plan (10/02/2024 7:42 AM EST): The patient's antihypertensive regimen is based on their underlying medical issues. At the time of this visit, the blood pressure is well controlled, however. Currently on metoprolol, lisinopril, Imdur, will continue same medications for now. The patient is instructed to follow a low sodium diet and to follow up in 3 months. 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 Patient will continue with yearly Podiatric and Ophthomologic evaluations.Will continue Angiotensin Converting Enzyme Inhibitor for renal protection. Continue Trulicity and Tresiba. Patient will follow up in 3 months Encounters Date Type Department Care Team Description 09/29/2024 12:00 PM EST Office Visit Adult Medicine [address] [phone] Teena Delacruz MD Type 2 diabetes mellitus with diabetic neuropathy, without long-term current use of insulin ([facility]) (Primary Dx); Primary hypertension; Mixed hyperlipidemia; Rheumatoid arthritis, involving unspecified site, unspecified whether rheumatoid factor present (CMS/[facility]); Encounter for screening involving social determinants of health (SDoH) 09/29/2024 Telephone Adult Medicine [address] [phone] Caryn Chandra LPN Fitting for DME from Last 3 Months Immunizations Name Administration Dates Next Due Influenza trivalent, 0.5mL ( Fluzone High-dose) 65yo and older 07/28/2022,07/08/2021 Influenza trivalent, 0.5mL, preservative free (Fluarix; FluLaval; Fluzone) ages 6mo and older (Afluria) 3 years and older 04/05/2015 Influenza trivalent, with pr eservative (Fluzone; Afluria) 6mo and older 04/29/2012,06/09/2011 Pneumococcal conjugate 20 va lent (Prevnar 20, PCV 20) 2mo and older 01/01/2023 Pneumococcal polysaccharide 23 valent (Pneumovax 23) 2yo and older 11/12/2021,03/23/2014,03/11/2004 Td Tetanus diptheria (Tdvax) 7yo and older 03/11 Tdap Tetanus diptheria acell ular pertussis (Boostrix; Adacel) 7yo and older 10/10/2019 Surgical History Surgery Date Site/Laterality Comments OTHER SURGICAL HISTORY Left PROCEDURE: HISTORY OTHER; COMMENT: left breast surgery benign OTHER SURGICAL HISTORY Left PROCEDURE: HISTORY OTHER; COMMENT: wrist ganglion removed OTHER SURGICAL HISTORY PROCEDURE: PVCA REMOTE ILR; COMMENT: ILR C BREAST BIOPSY Left PROCEDURE: BX BREAST; PERC NEEDLE CORE W/IMAG GUID; COMMENT: BENIGN Medical History Medical History Date Comments Diabetes mellitus type 2 wit h neurological manifestations (CMS/HCC) 08/27/2017 DX:Diabetes geovanni itus type 2 with neurological manifestations (HCC) Hypertension 08/27/2017 DX:Hypertension Hyperlipidemia 08/27/2017 DX:Hyperlipidemi a Anxiety 08/27/2017 DX:Anxiety Fibromyalgia 09/09/2017 DX:Fibromyalgia Old SD (myocardial infarction) 11/18/2017 D X:Old SD (myocardial infarction) Vitiligo 01/26/2019 DX:Vitiligo Osteopenia 03/08/2023 DX:Osteopenia; C OMMENT: Result Date: 03/04/2023 BONE DENSITY Lumbar Spine T-score is -0.7 (SD relative to 20-29 y/o adult) Z-score is +1.2 (SD relative to age matched peers) This is normal by criteria defined by the WHO. Left Hip T-score is -2.0 Z-score is -0.5 This is consistent with osteopenia by criteria defined by the WHO. Impression: Based on the World Health Organization criteria, Edit* Family History Relation Name Status Comments Father (Age ??) Mother (Age 62) heart catalina ck dm Social History Tobacco Use Types Packs/Day Years Used Date Smoking Tobacco: Never Smokeless Tobacco: Never Tobacco Cessation:Counseling Given: Not Answered Housing Instability Answer Date Recorde d Are [...] care for your loved ones. For example, children's counselor or elderly care for an older adult? [...] on file Sexual Orientation Not on file Obstetrics History Last Filed Vital Signs Vital Sign Reading Time Taken Comments Blood Pressure 128/63 09/29/2024 11:55 AM EST Pulse 61 09/29/2024 11:55 AM EST Temperature 36.3 ??C (97.4 ??F) 09/29/2024 11:[address] Respiratory Rate 17 09/29/2024 11:55 AM EST Oxygen Saturation - - Inhaled Oxygen Concentration - - Weight 72.6 kg (160 lb) 09/29/2024 11:55 AM EST Height 160 cm (5' 3 ) 09/29/2024 11:55 AM EST Body Mass Index 28.34 09/29/2024 11:55 AM EST Plan of Treatment Upcoming Encounters Date Type Department Care Team (Late st Contact Info) Description 03/20/2025 8:30 AM EDT Appointment Radiology Department - [address] [phone] 03/30/2025 8:30 AM EDT Office Visit Adult Medicine East - [address] [phone] Teena Rosas MD [address] [place] [address] Health Maintenance Due Date Last Done Comments Zoster Vaccines (1 of 2) 1974 RSV Immunization Patients 60+ Years Old (1 - Risk 60-74 years 1-dose series) 2015 Medicare Annual Wellness Visit 07/25/2022 COVID-19 Vaccine ( season) 2024 08/01/2021, 11/24/2020, 11/03/2020 Diabetes: Blood Sugar Control Test (HGBA1C) 12/21/2024 06/23/2024, 01/27/2024, 01/27/2024 Diabetes: Annual Urine Albumin-Creatinine Ratio (uACR) 01/26/2025 01/27/2024, 12/20/2023, 11/20/2022, Additional history exists Diabetes: Annual Foot Exam 01/26/2025 01/27/2024 Influenza Vaccine (#1) 2025 , 07/08/2021, 04/05/2015, Additional history exists Postponed from 04/16/2024 (Patient Refused) Diabetes: Annual Retina Eye Exam 03/22/2025 03/22/2024 Depression Screening 04/10/2025 04/10/2024 Falls Risk Assessment 04/10/2025 04/10/2024 Social Influencers of Health Screening 09/29/2025 09/29/2024 Diabetes: Annual GFR (Glomerular Filtration Rate) 10/11/2025 10/11/2024, 07/17/2024, 06/02/2024, Additional history exists Hypertension/CHF/CAD Annual BMP Blood Test 10/11/2025 10/11/2024, 07/17/2024, 06/02/2024, Additional history exists Breast Cancer Screening 03/13/2026 03/13/20, 03/13/2024, 03/04/2023 Cholesterol Screening (Lipid Panel) 01/26/2029 01/27/2024, 01/27/2024 DTaP,Tdap,and Td Vaccines (3 - Td or Tdap) 10/10/2029 10/10/2019, 03/11/2004 Osteoporosis Screening (Bone Density Screening) 03/04/2033 03/04/2023 Colorectal Cancer Screening: Colonoscopy Discontinued 03/24/2016 Pneumococcal Vaccine: 50+ Years Completed 01/01/2023, 11/12/2021, 03/23/2014, Additional history exists Hepatitis C Screening Completed 12/23/2023 Colorectal Cancer Screening: Stool Based Tests (FOBT/FIT) Discontinued HIB Vaccines Aged Out No longer eligi ble based on patient's age to complete this topic HPV Vaccines Aged Out No longer eligi ble based on patient's age to complete this topic Hepatitis A Vaccines Aged Out No long er eligible based on patient's age to complete this topic Hepatitis B Vaccines Aged Out No long er eligible based on patient's age to complete this topic IPV Vaccines Aged Out No longer eligi ble based on patient's age to complete this topic MMR Vaccines Aged Out No longer eligi ble based on patient's age to complete this topic Meningococcal ACWY Vaccine Aged Out N o longer eligible based on patient's age to complete this topic Meningococcal B Vacine Aged Out No lo nger eligible based on patient's age to complete this topic RSV Immunization Patients Under 20 months Aged Out No longer eligible based on patient's age to complete this topic Varicella Vaccines Aged Out No longer eligible based on patient's age to complete this topic Procedures Procedure Name Priority Date/Time Associated Diagnosis Comments EXTERNAL CLINICAL LAB Routine 10/17/2024 10:49 AM EST DEPRESSION SCREENING Routine 04/10/2024 FALLS RISK ASSESSMENT Routine 04/10/2024 DIABETES EYE EXAM Routine 03/22/2024 SCREENING MAMMOGRAPHY BI 2-VIEW BREAST INC CAD Routine 03/13/2024 8:30 AM EDT Encounter for screening mammogram for malignant neoplasm of breast ANNUAL BMP BLOOD TEST Routine 01/28/2024 URINE ALBUMIN CREATININE RATIO Routine 01/27/2024 HEMOGLOBIN A1C Routine 01/27/2024 LIPID PANEL Routine 01/27/2024 DIABETES FOOT EXAM Routine 01/27/2024 DXA BONE DENSITY STUDY 1+ SITS AXIAL SKEL Routine 03/04/2023 2:43 PM EDT Asymptomatic menopausal state COLONOSCOPY Routine 03/24/2016 from Last 3 Months or Most Recently Relevant to Health Maintenance Results * External clinical lab (10/17/2024 10:49 AM EST) Historical Provider LAB BLOOD ORDERABLES Dilma l Result * Falls Risk Assessment (04/10/2024) Pathologist [facility] Falls Risk Assessment Abstracted Historical Provider HEALTH MAINTENANCE Final Result * Depression Screening (04/10/2024) Pathologist [facility] Depression Screening Abstracted Historical Provider HEALTH MAINTENANCE Final Result * Diabetes Eye Exam (03/22/2024) Pathologist [facility] Diabetes: Annual Retina Eye Exam Abstracted Historical Provider HEALTH MAINTENANCE Final Result * SCREENING MAMMOGRAPHY BI 2-VIEW BREAST INC CAD (03/13/2024 8:30 AM EDT) Anatomical Region Laterality Modality Radiographic Myranda ging 03/04/2023 2:44 PM EDT Narrative 03/13/2024 4:23 PM EDT This is a summary report. The complete report is available in the patient's medical record. If you cannot access the medical record, please contact the sending organization for a detailed fax or copy. Study: SCREENING MAMMOGRAPHY BI 2-VIEW BREAST INC CAD Technique: Bilateral full-field digital screening mammography is obtained and read in conjunction with computer aided detection. ??Tomosynthesis as well as 2D C-View imaging were obtained. Comparison: Comparison made to multiple priors, most recent March 04, 2023, and most remote August 02, 2018. Breast composition: There are scattered areas of fibroglandular density. Right breast: No suspicious masses, suspicious calcifications or other abnormalities are seen. Left breast: History of previous needle core biopsy. ??No suspicious masses, suspicious calcifications or other abnormalities are seen. IMPRESSION: Impression: Bilateral breasts: Benign, no specific mammographic evidence of malignancy. ??Normal interval follow-up is recommended in 12 months. BI-RADS: Category 2: Benign Procedure Note Jose Conrad MD - 05/31/2024 This is a summary report. The complete report is available in thepatient's medical record. If you cannot access the medical record, pleasecontact the sending organization for a detailed fax or copy. Study: SCREENING MAMMOGRAPHY BI 2-VIEW BREAST INC CAD Technique: Bilateral full-field digital screening mammography is obtainedand read in conjunction with computer aided detection. Tomosynthesis aswell as 2D C-View imaging were obtained. Comparison: Comparison made to multiple priors, most recent March 04, 2023,and most remote August 02, 2018. Breast composition: There are scattered areas of fibroglandular density. Right breast: No suspicious masses, suspicious calcifications or otherabnormalities are seen. Left breast: History of previous needle core biopsy. No suspiciousmasses, suspicious calcifications or other abnormalities are seen. IMPRESSION: Impression: Bilateral breasts: Benign, no specific mammographic evidence ofmalignancy. Normal interval follow-up is recommended in 12 months. BI-RADS: Category 2: Benign Radha AUGILERA IMG XR PROCEDURES Final Result * HM Urine Albumin Creatinine Ratio (01/27/2024) Pathologist [facility] Urine Albumin Creatinine Ratio Abstracted [facility] Provider MD HEALTH MAINTENANCE Final Result * Diabetes Foot Exam (01/27/2024) [facility] Diabetes: Annual Foot Exam Abstracted [facility] Provider HEALTH MAINTENANCE Final Result * Hemoglobin A1c (01/27/2024) [facility] Hemoglobin A1C 6.3 <=6.5 % Blood Venous blood specimen / Unknown Result [facility] Provider MD LAB BLOOD ORDERABLES Dilma l Result * (ABNORMAL) Lipid panel (01/27/2024) [facility] LDL/HDL Ratio 3 0 - 4 Triglycerides 147 0 - 150 mg/dL Cholesterol 105 0 - 200 mg/dL HDL 37(A) >=40 mg/dL LDL Cholesterol 39 0 - 100 mg/dL Blood Venous blood specimen / Unknown Result [facility] Provider MD LAB BLOOD ORDERABLES Dilma l Result * DXA BONE DENSITY STUDY 1+ SITS AXIAL SKEL (03/04/2023 2:43 PM EDT) Anatomical Region Laterality Modality Bone Densitometr y 11/19/2022 10:1 2 AM EDT Narrative 03/04/2023 5:44 PM EDT BONE DENSITY ? Lumbar Spine T-score is -0.7 ?? (SD relative to 20-29 y/o adult) Z-score is +1.2 ??(SD relative to age matched peers) This is normal by criteria defined by the WHO. Left Hip T-score is -2.0 Z-score is -0.5 This is consistent with osteopenia by criteria defined by the WHO. Impression: Based on the World Health Organization criteria, Pia Holguin should be classified as having osteopenia. This patient has a 5.9% risk of major osteoporotic fracture and a 0.9risk of hip fracture over the next 10 years. (World Health Organization Fracture Risk Assessment) [facility] Department of Internal Medicine recommends using National Osteoporosis Foundation (NOF) guidelines in treatment decisions related to osteoporosis. NOF guidelines suggest considering treatment for postmenopausal women and men aged 50 or older presenting with the following: History of hip or vertebral fracture. T-score less than or equal to -2.5 (DXA) at the femoral neck, total hip, or spine, after appropriate evaluation to exclude secondary causes. Low bone mass (T-score between -1.0 and -2.5 at the femoral neck or spine) AND a 10-year probability of a hip fracture greater than or equal to 3% OR a 10-year probability of a major osteoporosis-related fracture greater than or equal to 20% based on the [place]-adapted WHO algorithm Please note that all treatment decisions require clinical judgment and consideration of individual patient factors, including patient preferences, co-morbidities, previous drug use, risk factors not captured in the FRAX model (e.g., frailty, falls, vitamin D deficiency, increased bone turnover, interval significant decline in bone density) and possible under- or over-estimation of fracture risk by FRAX. Procedure Note Rasheeda Ro MD - 09/20/2023 BONE DENSITY Lumbar Spine T-score is -0.7 (SD relative to 20-29 y/o adult) Z-score is +1.2 (SD relative to age matched peers) This is normal by criteria defined by the WHO. Left Hip T-score is -2.0 Z-score is -0.5 This is consistent with osteopenia by criteria defined by the WHO. Impression: Based on the World Health Organization criteria, Pia Holguin should beclassified as having osteopenia. This patient has a 5.9% risk of majorosteoporotic fracture and a 0.9risk of hip fracture over the next 10years. (World Health Organization Fracture Risk Assessment) [facility] Department of Internal Medicine recommendsusing National Osteoporosis Foundation (NOF) guidelines in treatmentdecisions related to osteoporosis. NOF guidelines suggest consideringtreatment for postmenopausal women and men aged 50 or older presentingwith the following: History of hip or vertebral fracture. T-score less than or equal to -2.5 (DXA) at the femoral neck, total hip,or spine, after appropriate evaluation to exclude secondary causes. Low bone mass (T-score between -1.0 and -2.5 at the femoral neck or spine)AND a 10-year probability of a hip fracture greater than or equal to 3% ORa 10-year probability of a major osteoporosis-related fracture greaterthan or equal to 20% based on the US-adapted WHO algorithm Please note that all treatment decisions require clinical judgment andconsideration of individual patient factors, including patientpreferences, co-morbidities, previous drug use, risk factors not capturedin the FRAX model (e.g., frailty, falls, vitamin D deficiency, increasedbone turnover, interval significant decline in bone density) and possibleunder- or over-estimation of fracture risk by FRAX. Radha [facility] [place] DXA PROCEDURES Final Result * Colonoscopy (03/24/2016) [facility] Colonoscopy Abstracted, no interpretation Anatomical Region Laterality Modality Other Historical Provider HEALTH MAINTENANCE Final Result from Last 3 Months or Most Recently Relevant to Health Maintenance Insurance [facility] MEDICAID Care Teams Stopper Maker Helper Relationship Specialty Start Date End Date Teena Rosas MD [address] [place] [id number] PCP - General Internal Medicine 08/23/24
== END 2024-10-30 14:30 | disposition home or self-care (01) ==
PROVIDERS: PCP Internal Medicine; Visit Provider Internal Medicine Cardiovascular Disease
DX: I25.10 Atherosclerotic heart disease of native coronary artery without angina pectoris (principal); I10 Essential (primary) hypertension
CPT/HCPCS: 99214; G2211

== ENCOUNTER → 2024-10-30 13:59 | Outpatient (BNVA) | payer OTHER, SELFPAY | PROVIDERS: PCP Internal Medicine; Visit Provider Internal Medicine Cardiovascular Disease | DX: I25.10 Atherosclerotic heart disease of native coronary artery without angina pectoris (principal); I10 Essential (primary) hypertension | CPT/HCPCS: 99212 ==

== ENCOUNTER 2024-11-27 13:34 | Outpatient (REF) | payer OTHER, SELFPAY ==
--- NOTE | ~2024-11-27 | US_ITS ---
EXAMINATION: BILATERAL CAROTID ULTRASOUND WITH DOPPLER HISTORY: R09.89 - Other specified symptoms and signs involving the circulatory COMPARISON: There are no prior studies for comparison. TECHNIQUE: Real time and Color and Spectral doppler ultrasonography of the carotid and vertebral arteries was performed in multiple planes. FINDINGS: There is a small amount of plaque in the right internal carotid artery. No significant plaque is seen on the left. Mildly irregular heartbeat is noted. VERTEBRAL FLOW DIRECTION: Antegrade bilaterally. PEAK SYSTOLIC VELOCITIES (in cm/sec): RIGHT: CCA: Prox: 73 Dist: 76 ICA: Prox: 66 Mid: 121 Dist: 110 ICA/CCA Ratio: 1.59 ECA: 115 Peak ICA EDV: 27 Subclavian artery: 210 LEFT: CCA: Prox: 80 Dist: 93 ICA: Prox: 65 Mid: 120 Dist: 109 ICA/CCA Ratio: 1.29 ECA: 145 Peak ICA EDV: 31 Subclavian artery: 136 US/US carotid duplex BI IMPRESSION: 1. Findings consistent with 0-49% stenosis of the right internal carotid artery. Normal ultrasound examination of the left internal carotid artery. 2. Findings suggestive of a stenosis of the right subclavian artery. 3. Mild arrhythmia. Correlation with EKG is suggested. Electronically signed by: Gilberto Fuller MD 11/28/2024 07:05 AM EDT
--- OUTSIDE RECORDS SUMMARY | 2024-11-27 15:37 | XMS_ITS | Encounter Summary ---
Author Organization [facility] Address [address] [place] [address] Care Team Providers Care Dental Technician Name Role Phone Teena Rosas MD Primary Care Prov ider Reason for Visit * Reason Onset Date Comments CALL BACK 11/23/2024 Encounter Details Date Type Department Care Team ([facility] st Contact Info) Description 11/23/2024 Telephone Adult Medicine [address] [phone] Fernanda Cole MA CALL BACK Social History Tobacco Use Types Packs/Day Years [...] for your loved ones. For example, children's ministries director or elderly care for an older adult? [...] as of this encounter Progress Notes * Darcie Vergara MA - 11/23/2024 1:34 PM EDT Call made to dilip who was out to lunch however they were looking for information on her last 2 visits I have faxed over those notes as requested to Dr Alston office * Fernanda Cole MA - 11/23/2024 9:55 AM EDT Dilip @Rheumatology would like a call back she has some questions Re: patients Anemia. documented in this encounter Plan of Treatment Upcoming Encounters Date Type Department Care Team (Late st Contact Info) Description 03/20/2025 8:30 AM EDT Appointment Radiology Department - [address] [phone] 03/30/2025 8:30 AM EDT Office Visit Adult Medicine [address] [phone] Teena Rosas MD [address] [place] [address] documented as of this encounter Visit Diagnoses Not on filedocumented in this encounter Care Teams Dental Technician Relationship Specialty Start Date End Date Teena Rosas MD [address] [place] [address] PCP - General Internal Medicine 08/23/24 documented as of this encounter
--- OUTSIDE RECORDS SUMMARY | 2024-11-27 15:37 | XMS_ITS | Clinical Summary ---
Author Organization [facility] [address] [facility] Address [address] [place] [address] Phone Care Team Providers Care Scientific Software Engineer Name Role Phone Teena Rosas MD Primary Care Prov ider Allergies Active Allergy Reactions Criticality Noted Date Comments Latex 07/21/2018 Other 08/27/2017 Gloves Vinyl Penicillins 08/27/2017 Other Reaction(s): Rash/Dermatitis Medications acetaminophen (TYLENOL) 500 mg tablet Take 500 mg by mouth. Active aspirin 81 mg EC tablet Take 1 Tab by mouth daily. 8 Active pen needle, diabetic (BD Ultra-Fine Mini Pen Needle) 31 gauge x 3/16 needle B-D U/F PEN NEEDLE 31G X 5 MM [facility] [place]ESIB[place]. DX: E11.49 9 Active blood-glucose meter misc BLOOD GLUCOSE MONITORING SUPPL (FIFTY50 GLUCOSE METER 2.0) W/DEVICE KIT Use as instructed 8 Active blood-glucose meter kit Blood Glucose Monitoring Suppl (ONE TOUCH ULTRA 2) w/Device Kit Use as instructed 8 Active blood-glucose sensor (Dexcom G7 Sensor) device USE DIRECTED EVERY 10 DAYS 4 Active ezetimibe (ZETIA) 10 mg tablet Take 1 Tablet by mouth daily. 3 Active folic acid (FOLVITE) 1 mg tablet Take 1 Tablet by mouth. 4 Active glucose blood test strip GLUCOSE BLOOD TEST STRIPS (PRECISION QID TEST) STRIP 1 Each. 9 Active insulin degludec (Tresiba FlexTouch U-100) 100 unit/mL (3 mL) injection pen Inject into the skin. Inject 10 units at bedtime Active isosorbide mononitrate (IMDUR) 60 mg 24 hr tablet Take 1 Tablet by mouth daily. 2 Active methotrexate 2.5 mg tablet Take 8 Tablets by mouth. 4 Active metoprolol succinate (TOPROL-XL) 25 mg 24 hr tablet Take 1 Tablet by mouth daily. 4 Active ticagrelor (BRILINTA) 90 mg tablet Take 90 mg by mouth. 4 Active traZODone (DESYREL) 50 mg tablet Take 1 Tablet by mouth at bedtime. Active dulaglutide (Trulicity) 0.75 mg/0.5 mL pen injector injection Inject 0.5 mL (0.75 mg total) under the skin every 7 (seven) days. Active atorvastatin (LIPITOR) 80 mg tablet TAKE 1 TABLET BY MOUTH EVERY DAY 90 tablet 1 5 Active lisinopril (PRINIVIL,ZESTRI L) 40 mg tablet TAKE 1 TABLET BY MOUTH EVERY DAY 90 tablet 1 5 Active Active Problems Problem Noted Date Diagnosed Date Rheumatoid arthritis ([facility] V24, [facility] V28) 05/16/2024 Assessment & Plan (10/02/2024 7:42 AM EST): Following with rheum at [facility]. On Methotrexate. Not taking Folic acid. Osteopenia [...] (World Health Organization Fracture Risk Assessment) [facility] Department of Internal Medicine recommends using National [...] fracture risk by FRAX. Vitiligo 01/26/[address] (myocardial infarction) 11/18/2017 Fibromyalgia 09/09/2017 Anxiety 08/27/2017 [...] in 3 months. Type 2 diabetes mellitus wit h neurologic complication ([facility] V24, [facility] V28) 08/27/2017 Assessment & Plan (10/02/2024 7:42 AM EST): Good control of diabetes. Patient will continue with yearly Podiatric and Ophthomologic evaluations.Will continue Angiotensin Converting Enzyme Inhibitor for renal protection. Continue Trulicity and Tresiba. Patient will follow up in 3 months Encounters Date Type Department Care Team Description 11/23/2024 Telephone Adult Medicine [address] [phone] Fernanda Cole MA CALL BACK 09/29/2024 12:00 PM EST Office Visit Adult Medicine [address] [phone] Teena Delacruz MD Type 2 diabetes mellitus with diabetic neuropathy, without long-term current use of insulin ([facility] V24, [facility] V28) (Primary Dx); Primary hypertension; Mixed hyperlipidemia; Rheumatoid arthritis, involving unspecified site, unspecified whether rheumatoid factor present ([facility] V24, [facility] V28); Encounter for screening involving social determinants of health (SDoH) 09/29/2024 Telephone Adult Medicine [address] [phone] Caryn Chandra LPN Fitting for DME from [...] HISTORY PROCEDURE: [facility] REMOTE ILR; COMMENT: [place] [facility] BREAST BIOPSY Left PROCEDURE: BX BREAST; PERC NEEDLE CORE W/IMAG GUID; COMMENT: BENIGN Medical History Medical History Date Comments Diabetes mellitus type 2 wit h neurological manifestations (CMS/HCC V24, CMS/HCC V28) 08/27/2017 DX:Diabetes mellitus type 2 with neurological manifestations (HCC) Hypertension 08/27/2017 DX:Hypertension Hyperlipidemia 08/27/2017 DX:Hyperlipidemi a Anxiety 08/27/2017 DX:Anxiety Fibromyalgia 09/09/2017 DX:Fibromyalgia Old CT (myocardial infarction) 11/18/2017 D X:Old CT (myocardial infarction) Vitiligo 01/26/2019 DX:Vitiligo Osteopenia 03/08/2023 [...] for your loved ones. For example, child welfare director or elderly care for an older [...] 8:30 AM EDT Appointment Radiology Department - [address] [phone] 03/30/2025 8:30 AM EDT Office Visit Adult Medicine [facility] - [address] [phone] Teena Rosas MD [address] [place] [address] [phone] Health Maintenance Due Date Last Done Comments Zoster Vaccines (1 of 2) 1974 RSV Immunization Adult Patients (1 - Risk 60-74 years 1-dose series) 2015 Medicare Annual Wellness Visit 07/25/2022 COVID-19 Vaccine ( season) 2024 08/01/2021, 11/24/2020, 11/03/2020 Diabetes: Blood Sugar Control Test (HGBA1C) 12/21/2024 06/23/2024, 01/27/2024, 01/27/2024 Diabetes: Annual Urine Albumin-Creatinine Ratio (uACR) 01/26/2025 01/27/2024, 12/20/2023, 11/20/2022, Additional history exists Diabetes: Annual Foot Exam 01/26/2025 01/27/2024 Diabetes: Annual Retina Eye Exam 03/22/2025 03/22/2024 Depression Screening 04/10/2025 04/10/2024 Falls Risk Assessment 04/10/2025 04/10/2024 Influenza Vaccine (Season Ended) 2025 07/28/2022, 07/08/2021, 04/05/2015, Additional history exists Social Influencers of Health Screening 09/29/2025 09/29/2024 [...] age to complete this topic Meningococcal B Vaccine Aged Out No l onger eligible based on patient's age to complete this topic RSV Immunization Patients Under 20 months Aged Out No longer eligible based on patient's age to complete this topic Varicella Vaccines Aged Out No longer eligible based on patient's age to complete this topic Procedures Procedure Name Priority Date/Time Associated Diagnosis Comments EXTERNAL CLINICAL LAB Routine 10/17/2024 10:49 AM EST HM DEPRESSION SCREENING Routine 04/10/2024 FALLS RISK ASSESSMENT [...] Result * Falls Risk Assessment (04/10/2024) Pathologist [facility] Falls Risk Assessment Abstracted Historical Provider HEALTH MAINTENANCE Final Result * Depression Screening (04/10/2024) Pathologist [facility] Depression Screening Abstracted Historical Provider HEALTH MAINTENANCE Final Result * Diabetes Eye Exam (03/22/2024) Pathologist [facility] Diabetes: Annual Retina Eye Exam Abstracted Historical [...] in 12 months. BI-RADS: Category 2: Benign us Radha AGUILERA IMG XR PROCEDURES Final Result * Urine Albumin Creatinine Ratio (01/27/2024) Pathologist [facility] Urine Albumin Creatinine Ratio Abstracted Historical Provider MD HEALTH MAINTENANCE Final Result * Diabetes Foot Exam (01/27/2024) [facility] Diabetes: Annual Foot Exam Abstracted [facility] [place] MD HEALTH MAINTENANCE Final Result * Hemoglobin A1c (01/27/2024) [facility] Hemoglobin A1C 6.3 <=6.5 % Blood Venous blood specimen / Unknown Historical Provider MD LAB BLOOD ORDERABLES Dilma l Result * (ABNORMAL) Lipid panel (01/27/2024) [facility] LDL/HDL Ratio 3 0 - 4 Triglycerides 147 0 - 150 mg/dL Cholesterol 105 0 - 200 mg/dL HDL 37(A) >=40 mg/dL LDL Cholesterol 39 0 - 100 mg/dL Blood Venous blood specimen / Unknown Historical Provider MD LAB BLOOD ORDERABLES Dilma l [...] (World Health Organization Fracture Risk Assessment) [facility] Department of Internal Medicine recommends using National [...] (World Health Organization Fracture Risk Assessment) [facility] Department of Internal Medicine recommendsusing National Osteoporosis [...] of fracture risk by FRAX. Radha [facility]ED[place] Final Result * Colonoscopy (03/24/2016) [facility] Signature Colonoscopy Abstracted, no interpretation Anatomical Region Laterality Modality Other Historical Provider HEALTH MAINTENANCE Final Result from Last 3 Months or Most Recently Relevant to Health Maintenance Insurance [facility] MEDICAID Care Teams Scientific Software Engineer Relationship Specialty Start Date End Date Teena Rosas MD [address] [place] [phone] PCP - General Internal Medicine 08/23/24
== END 2024-11-27 13:35 | disposition home or self-care (01) ==
LOC: HO.US 13:34
PROVIDERS: PCP Internal Medicine; Visit Provider Internal Medicine Cardiovascular Disease
DX: R09.89 Other specified symptoms and signs involving the circulatory and respiratory systems (principal)
CPT/HCPCS: 93880

== ENCOUNTER → 2024-11-27 13:35 | Outpatient (BNV) | payer OTHER, SELFPAY | PROVIDERS: PCP Internal Medicine; Visit Provider Radiology Diagnostic Radiology | DX: I77.1 Stricture of artery (principal) | CPT/HCPCS: 93880 ==

== ENCOUNTER 2025-05-03 08:13 | Outpatient (AMB) | payer OTHER, SELFPAY ==
--- NOTE | 2025-05-03 08:23 | A.OFFVIS_ITS ---
Vital Signs 05/03/25 08:24 Height 5 ft 3 in Weight 172 lb 6.424 oz BMI 30.5 BP 142/68 H Blood Pressure Location Lt brachial Position Sitting Pulse 59 Pulse Source Monitor Intake Visit Reasons: 6 mth f/up carotid/ lipids Intake Note: 6 Month F/u /Carotid/ Lipids Social Media Campaign Manager Services: Social Media Campaign Manager Offered & Declined Accompanied by: Self / Same As Patient Allergies penicillin V Allergy (Unknown, Verified 05/03/25 08:29) rash, hives Penicillins (PENICILLINS) Allergy (Unknown, Verified 05/03/25 08:29) RASH Vinyl Gloves Allergy (Unknown, Verified 05/03/25 08:29) rash tuberculin, purified protein deriva (TUBERCULIN,PURIF.PROT.DERIV.) Adverse Reaction (Intermediate, Verified 05/03/25 08:29) RASH transparent dressing (Tegaderm) Adverse Reaction (Verified 05/03/25 08:29) Rash Medication List - Last Reconciled 05/03/25 by Patric Pruett MD acetaminophen (Tylenol Extra Strength) 500 mg PO Q6H PRN aspirin (Adult Low Dose Aspirin) 81 mg PO DAILY atorvastatin 80 mg PO DAILY docusate sodium 100 mg PO BID dulaglutide 1.5 mg subcut TH@1000 ferrous sulfate 325 mg PO BID insulin degludec 40 units subcut BEDTIME isosorbide mononitrate ER 60 mg PO DAILY lisinopril 40 mg PO DAILY methotrexate sodium 2.5 mg PO metoprolol succinate ER 25 mg PO DAILY ticagrelor (Brilinta) 90 mg PO BID 90 days trazodone 50 mg PO BEDTIME turmeric root extract 1,076 mg PO DAILY HPI Comments Details: Pia comes for follow-up. She has been doing well. She has been walking regularly and can save walk for half an hour without any symptoms. Denies any exertional chest pain or shortness of breath. No orthopnea, PND, leg edema. No lightheadedness, syncope. Her recent carotid duplex suggested mild carotid disease. LDL cholesterol is well optimized at 44. Taking all her medications. Blood pressure at home are within normal limits. [facility] Medical History (Updated 10/30/24 @ 14:32 by Patric Pruett MD) NSTEMI (non-ST elevated myocardial infarction) History of breast cancer Anemia Status post placement of implantable loop recorder Essential hypertension Atherosclerotic cardiovascular disease Sinus bradycardia Diastolic dysfunction HTN (hypertension) CAD (coronary artery disease) Surgical History S/P cardiac catheterization S/P cardiac cath Stented coronary artery Hx of tubal ligation Hx of colonoscopy Hx of cardiac cath Family History Father Cancer Mother Diabetes Social History Household Members: Family Housing: House Do you presently have visiting nurse or other home services: No Alcohol intake: never Patient Tobacco Use Status: Never used Tobacco Second Hand Smoke Exposure: No service: No Female Reproductive History Menstrual Age of Menarche: 12 Review of Systems Const Denies daytime sleepiness, Denies difficulty sleeping, Denies snoring, Denies stops breathing during sleep and Denies weakness Card Denies chest pain, Denies rapid heart rate, Denies irregular heart rhythm, Denies claudication, Denies leg edema, Denies lightheadedness, Denies palpitations, Denies dyspnea, Denies dyspnea on exertion, Denies orthopnea, Denies paroxysmal nocturnal dyspnea and Denies slow heart rate Resp Denies cough, Denies dyspnea, Denies dyspnea on exertion and Denies snoring GI Reports no additional complaints, Denies hematochezia, Denies change in stool character and Denies dyspepsia Musc Denies abnormal gait, Denies muscle weakness and Denies numbness Neuro Denies abnormal gait, Denies numbness and Denies weakness Endo Denies palpitations Physical Exam Vital Signs: Last Vital Signs Pulse 59 05/03/25 08:24 BP 142/68 H 05/03/25 08:24 BMI result Body Mass Index 30.5 Const General: cooperative, healthy appearing, comfortable and no acute distress Neck Neck: Yes trachea midline, Yes supple and Yes no JVD Carotids: bruit on the left Chest Chest palpation & inspection: normal inspection of the chest Resp Effort & Inspection: normal respiratory effort Auscultation: clear to auscultation bilaterally, no rales, no rhonchi and no wheezes Cardio Other: Dressing over ILR site removed and small incision fully intact with no redness, drainage, dehiscence. Edges well approximated, Band-Aid applied Jugular venous distension: no JVD Rate: regular rate Rhythm: regular rhythm Heart sounds: S1 normal heart sound present, S2 normal heart sound present and no murmurs Skin General skin exam: no rashes or lesions noted Psych Appearance: grossly normal Mental Status: mental status grossly normal Speech and movement: Normal speech and movement present Office Procedures EKG Details: EKG shows sinus bradycardia otherwise normal EKG [id number], Complete Assessment & Plan Assessment & Plan (1) CAD (coronary artery disease): Comment: Bare metal stent to mid LAD. Diffuse moderately severe three-vessel disease with FFR negative, March 2014 Code(s): I25.10 - Atherosclerotic heart disease of [place] coronary artery without angina pectoris Category: Medical Plan: CAD with diffuse disease with prior bare metal stent to LAD and then subsequent drug-eluting stent to circumflex artery last year in March. Since then she has done well. She has had no recurrent symptoms. From cardiac perspective dual antiplatelet therapy can be discontinued. I have advised her to stop Brilinta. Continue aspirin for life. Continue high-intensity statin therapy with well optimized LDL at current time. Encouraged to maintain activity level as tolerated. Continue aggressive management of diabetes goal hemoglobin A1c less than 7%. Continue aggressive blood pressure control, see below. (2) HTN (hypertension): Code(s): I10 - Essential (primary) hypertension Category: Medical Plan: Hypertension which is currently well optimized advised to monitor blood pressure at home maintain a log. Goal blood pressure less than 130/84. Low-salt diet was discussed. Continue current therapy with lisinopril as well as metoprolol. Follow up in the clinic in 1 year's time, sooner PRN. Thank you for allowing me to partake in her care Coding Level of Care Code Est Pt Level 4 (10759) Complex EM visit Add On G2211 Diagnoses CAD (coronary artery disease) I25.10 HTN (hypertension) I10 CPT Codes EKG - CPT: [id number], Complete ([id number])
[2025-05-03 08:24] VITALS: BP 142/68; PULSE 59; BMI 30.5
--- OUTSIDE RECORDS SUMMARY | 2025-05-03 09:02 | XMS_ITS | Clinical Summary ---
Author Organization [facility] [address] [facility] Address [address] [place] [address] Phone Care Team Providers Care River Driver Name Role Phone Teena Rosas MD Primary [...] U/F PEN NEEDLE 31G X [facility] WITH TRESIBA. DX: E11.49 02/22/20 19 [...] skin. Inject 10 units at bedtime Active methotrexate 2.5 mg tablet Take 8 Tablets by mouth. 01/30/20 24 Active ticagrelor (BRILINTA) 90 mg tablet Take 90 mg by mouth. 01/12/20 24 Active traZODone (DESYREL) 50 mg tablet Take 1 Tablet by mouth at bedtime. Active dulaglutide (Trulicity) 0.75 mg/0.5 mL pen injector injection Inject 0.5 mL (0.75 mg total) under the skin every 7 (seven) days. Active metoprolol succinate (TOPROL-XL) 25 mg 24 hr tablet TAKE 1 TABLET BY MOUTH EVERY DAY 90 tablet 1 01/05/20 25 Active atorvastatin (LIPITOR) 80 mg tablet TAKE 1 TABLET BY MOUTH EVERY DAY 90 tablet 04/05/20 25 Active lisinopril (PRINIVIL,ZESTR IL) 40 mg tablet TAKE 1 TABLET BY MOUTH EVERY DAY 90 tablet 04/05/20 25 Active isosorbide mononitrate (IMDUR) 120 mg 24 hr tablet Take 1 tablet (120 mg total) by mouth 1 (one) time each day. Do not crush or chew. 90 tablet 04/24/20 25 Active sodium chloride (OCEAN) 0.65 % nasal spray Administer 1 spray into each nostril if needed for congestion. 15 mL 11 04/24/20 25 026 Active ciclopirox (PENLAC) 8 % solution Apply topically at bedtime. Apply over nail and surrounding skin. Apply daily over previous coat. After seven (7) days, may remove with alcohol and continue cycle. 6.6 mL 04/24/20 25 025 Active isosorbide mononitrate (IMDUR) 60 mg 24 hr tablet Take 1 Tablet by mouth daily. 06/05/20 22 025 Discontinued atorvastatin (LIPITOR) 80 mg tablet TAKE 1 TABLET BY MOUTH EVERY DAY 90 tablet 1 10/02/19 25 025 Discontinued lisinopril (PRINIVIL,ZESTR IL) 40 mg tablet TAKE 1 TABLET BY MOUTH EVERY DAY 90 tablet 1 10/02/19 25 025 Discontinued Active Problems Problem Noted Date Diagnosed Date Class 1 obesity due to exces s calories with serious comorbidity and body mass index (BMI) of 30.0 to 30.9 in adult 04/24/2025 Assessment & Plan (04/24/2025 12:20 PM EDT): The patient is overweight. Approaches towards weight loss are discussed, including frequent, small meals, portion control, avoiding eating before bedtime, regular exercise with an emphasis on duration rather than intensity , and strength training exercise Rheumatoid arthritis ([facility] V24, [facility] V28) 05/16/2024 Assessment & Plan (04/24/2025 12:20 PM EDT): Continue to follow with Dr. Armendariz at [facility] Assessment & Plan (10/02/2024 7:42 AM EST): Following with rheum at [facility]. On Methotrexate. Not taking Folic acid. Osteopenia [...] (World Health Organization Fracture Risk Assessment) [facility] Department of Internal Medicine recommends using National [...] or over-estimation of fracture risk by FRAX. Assessment & Plan (04/24/2025 12:20 PM EDT): Overdue for DXA. Orders placed. Advised to stop downstairs to schedule Orders: BD Bone Density DXA Axial Skeleton; Future Vitiligo 01/26/2019 Old UT (myocardial infarction) 11/18/2017 Fibromyalgia 09/09/2017 Anxiety 08/27/2017 Overview (05/16/2024): Sees psychiatrist Hyperlipidemia 08/27/2017 Assessment & Plan (04/24/2025 12:20 PM EDT): See HTN/DM plan Assessment & Plan (10/02/2024 7:42 AM EST): Given the patients cardiac risk profile, the patient requires an LDL cholesterol of less than 70 on target. Continue atorvastatin 80 mg, Zetia 10 mg a day. I have instructed the patient on the principles of a low cholesterol diet and the importance of regular exercise. Hypertension 08/27/2017 Assessment & Plan (04/24/2025 12:20 PM EDT): Patient's hypertension is poorly controlled with blood pressure as shown above. LDL cholesterol is well controlled with goal of less than 160 and goal of 100 if on cholesterol lowering medication. Current regimen includes metoprolol 25 mg daily, lisinopril 40 mg daily, isosorbide mononitrate 60 mg daily, ezetimibe 10 mg daily, atorvastatin 80 mg daily, aspirin 81 mg daily, and Brilinta 90 mg daily and isosorbide mononitrate has been increased to 120 mg daily. Pia has been encouraged to follow a diet low in saturated fat, low in carbohydrates, and low in sodium. She has been encouraged to try to get 30 minutes of exercise 4 to 5 days a week to their tolerance. Patient is educated to call the office if she develops headaches, nosebleeds, chest pain, palpitations, changes in vision or if her blood pressure is greater than 140/90 for 3 consecutive days, as she should be seen sooner than routine follow-up in office. She is educated to report to the ED if her blood pressure is greater than 140/90 and there are associated symptoms of chest pain, shortness of breath, palpations, or abrupt changes in vision. If blood pressure is <100/60 patient should hold isosorbide mononitrate and lisinopril. Patient will require a 1 month follow up in office with primary care provider for re-evaluation and management of hypertension. Patient's questions today answered to the best of my ability. Patient understands and agrees to this plan and acknowledges to contact me with any additional questions or concerns. Assessment & Plan (10/02/2024 7:42 AM EST): [...] 2 diabetes mellitus wit h neurologic complication ([facility] V24, [facility] V28) 08/27/2017 Assessment & Plan (04/24/2025 12:20 PM EDT): Patient's diabetes is well controlled with A1C as shown above. LDL cholesterol is well controlled with goal of less than 100 with better goal of less than 70. Current regimen includes metoprolol 25 mg daily, lisinopril 40 mg daily, isosorbide mononitrate 60 mg daily, insulin degludec 10 units at bedtime, ezetimibe 10 mg daily, dulaglutide 0.75 mg weekly, atorvastatin 80 mg daily, aspirin 81 mg daily, and Brilinta 90 mg daily and isosorbide mononitrate has been increased to 120 mg daily. DM foot exam is up to date and eye exam is up to date and fax sent to obtain copy of results. Pia has been encouraged to follow a diet low in saturated fat as well as low in carbohydrates. They have been encouraged to try to get 30 minutes of exercise 4 to 5 days a week to their tolerance. Patient is educated to call the office if she develops polyuria, polydipsia, numbness of the feet, or if her fasting blood sugar is >200 for 3 consecutive days, as she should be seen sooner than routine follow-up in office. She is educated to report to the ED if her blood sugar is <70 without improvement 30 minutes after consuming something high in sugar, if it is >300 with symptoms, or if she develops shortness of breath or chest pain. If sugar <70 fasting patient should hold insulin or dulaglutide if due on that day. Patient will require a 3 month follow up in office with primary care provider for re-evaluation and management of diabetes. Patient's questions today answered to the best of my ability. Patient understands and agrees to this plan and acknowledges to contact me with any additional questions or concerns. Orders: Diabetes Foot Exam Comprehensive metabolic panel; Future Hemoglobin A1c; Future Lipid panel with reflex to direct LDL; Future Microalbumin creatinine urine ratio; Future Assessment & Plan (10/02/2024 7:42 AM EST): Good control of diabetes. Patient will continue with yearly Podiatric and Ophthomologic evaluations.Will continue Angiotensin Converting Enzyme Inhibitor for renal protection. Continue Trulicity and Tresiba. Patient will follow up in 3 months Encounters Date Type Department Care Team Description 04/24/2025 8:30 AM EDT Office Visit Adult Medicine [address] [phone] Radha Meehan PA Encounter for subsequent annual wellness visit (AWV) in Medicare patient (Primary Dx); Type 2 diabetes mellitus with diabetic neuropathy, without long-term current use of insulin ([facility] V24, [facility] V28); Elevated blood pressure reading; Primary hypertension; Mixed hyperlipidemia; Rheumatoid arthritis with positive rheumatoid factor, involving unspecified site ([facility] V24, [facility] V28); Class 1 obesity due to excess calories with serious comorbidity and body mass index (BMI) of 30.0 to 30.9 in adult; Osteopenia, unspecified location; Screening for osteoporosis 03/20/2025 7:59 AM EDT - 03/20/2025 11:59 PM EDT Hospital Encounter Radiology Department [address] [phone] Encounter for screening mammogram for breast cancer Discharge Disposition: Home or Self Care from Last 3 Months Immunizations Name Administration [...] HISTORY PROCEDURE: [facility]CA REMOTE ILR; COMMENT: ILR [facility] BREAST BIOPSY Left PROCEDURE: BX BREAST; PERC NEEDLE CORE W/IMAG GUID; COMMENT: BENIGN Medical History Medical History Date Comments Diabetes mellitus type 2 wit h neurological manifestations (CMS/HCC V24, CMS/HCC V28) 08/27/2017 DX:Diabetes mellitus type 2 with neurological manifestations (HCC) Hypertension 08/27/2017 DX:Hypertension Hyperlipidemia 08/27/2017 DX:Hyperlipidemi a Anxiety 08/27/2017 DX:Anxiety Fibromyalgia 09/09/2017 DX:Fibromyalgia Old UT (myocardial infarction) 11/18/2017 D X:Old UT (myocardial infarction) Vitiligo 01/26/2019 DX:Vitiligo Osteopenia 03/08/2023 [...] you may not have stable housing? No 04/24/2025 Food Access & Nutrition Answer Date Rec orded Do you have access to a vari ety of food including fruits and vegetables? Yes 04/24/2025 Health Literacy Answer Date Recorded How often do you need to hav e someone help you when you read instructions, pamphlets, or other written material from your doctor or pharmacy? Never 04/24/2025 Caregiver: How often do you need to have someone help you when you read instructions, pamphlets, or other written material from your doctor or pharmacy? Not on file 04/24/2025 Financial Risk Answer Date Recorded How hard is it for you to pa y for the very basics like food, housing, medical care, and air conditioning / heating? Not very hard 04/24/2025 Transportation Answer Date Recorded Has the lack of transportati on kept you from meetings, work, or from getting things needed for daily living? No Has the lack of transportati on kept you from medical appointments or from getting medications? No 04/24/2025 Social Isolation Answer Date Recorded How often do you feel lonely or isolated from th ose around you? Never 04/24/2025 Food Risk Answer Date Recorded Within the past 12 months we worried whether our food would run out before we got money to buy more. Never true 04/24/2025 Within the past 12 months th e food we bought just didn't last and we didn't have money to get more. Never true 04/24/2025 Dependent Care Answer Date Recorded Do you need help finding or paying for care for your loved ones. For example, childhood teacher or elderly care for an older adult? No 04/24/2025 Education Answer Date Recorded Do you think completing more education or training, like finishing a GED, going to college, or learning a trade, would be helpful for you? No 04/24/2025 Employment and Income Answer Date Recor ded During the last four weeks, have you been actively looking for work? No 09/29/2024 Living Situation Answer Date Recorded What is your living situation? 0 04/24/2025 Comments No Sex and Gender Information Value Date Recorded Sex Assigned at Not on file Legal Sex Female 10:56 PM EST Gender Identity Not on file Sexual Orientation Not on file Obstetrics History Para Term AB IAB SAB Ectopic Multiple Livin g Live Births 5 5 5 5 Date Outcome GA Total Labor Labor/2nd/3rd Weight Sex Type Anes PTL Daisy A1 A5 Name Clin Term Term Term Term Term Last Filed Vital Signs Vital Sign Reading Time Taken Comments Blood Pressure 164/69 04/24/2025 8:41 AM EDT avg provider will recheck Pulse 49 04/24/2025 8:26 AM EDT will recheck Temperature 35.8 C (96.5 F) 04/24/2025 8:26 AM EDT Respiratory Rate 16 04/24/2025 8:26 AM EDT Oxygen Saturation 98% 04/24/2025 8:2 6 AM EDT Inhaled Oxygen Concentration - - Weight 78.9 kg (174 lb) 04/24/2025 8:26 AM EDT Height 160 cm (5' 3 ) 04/24/2025 8:26 AM EDT Body Mass Index 30.82 04/24/2025 8:26 AM EDT Plan of Treatment Upcoming Encounters Date Type Department Care Team (Late st Contact Info) Description 05/21/2025 8:00 AM EDT Office Visit Adult Medicine [address] [phone] Teena Rosas MD [address] [place] [address] 04/25/2026 8:00 AM EDT Office Visit Adult Medicine [facility] [address], [place] [phone] Teena Rosas MD [address], [place] Health Maintenance Due Date Last Done Comments Zoster Vaccines (1 of 2) 2005 RSV Immunization Adult Patients (1 - Risk 60-74 years 1-dose series) 2015 Diabetes: Blood Sugar Control Test (HGBA1C) 12/21/2024 06/23/2024, 01/27/2024, 01/27/2024 Diabetes: Annual Urine Albumin-Creatinine Ratio (uACR) 01/26/2025 01/27/2024, 12/20/2023, 11/20/2022, Additional history exists Osteoporosis Screening (Bone Density Screening) 03/04/2025 03/04/2023 Diabetes: Annual Retina Eye Exam 03/22/2025 03/22/2024 Influenza Vaccine (#1) 2025 , 07/08/2021, 04/05/2015, Additional history exists Diabetes: Annual GFR (Glomerular Filtration Rate) 01/31/2026 01/31/2025, 10/11/2024, 07/17/2024, Additional history exists Hypertension/CHF/CAD Annual BMP Blood Test 01/31/2026 01/31/2025, 10/11/2024, 07/17/2024, Additional history exists Diabetes: Annual Foot Exam 04/24/2026 04/24/2025, Falls Risk Assessment 04/24/2026 04/24/2025, 024 Medicare Annual Wellness Visit 04/24/2026 04/24/2025 Social Influencers of Health Screening 04/24/2026 04/24/2025, 09/29/2024 Breast Cancer Screening 03/20/2027 03/20/20 25, 03/13/2024, 03/13/2024, Additional history exists Cholesterol Screening (Lipid Panel) 01/26/2029 01/27/2024, 01/27/2024 DTaP,Tdap,and Td Vaccines (3 - Td or Tdap) 10/10/2029 10/10/2019, 03/11/2004 Colorectal Cancer Screening: Colonoscopy Discontinued 03/24/2016 COVID-19 Vaccine Discontinued 08/01/2021, 06/2021, 11/03/2020 Pneumococcal Vaccine: 50+ Years Completed 01/01/2023, 11/12/2021, 03/23/2014, Additional history exists Hepatitis C Screening Completed 12/23/2023 Depression Screening Completed 04/24/2025, 04/10/20 24 Colorectal Cancer Screening: Stool Based Tests (FOBT/FIT) [...] Procedure Name Priority Date/Time Associated Diagnosis Comments MG MAMMO DIGITAL SCREENING W SHON BILAT Routine 03/20/2025 8:22 AM EDT Encounter for screening mammogram for breast cancer DEPRESSION SCREENING Routine 04/10/2024 FALLS RISK ASSESSMENT Routine 04/10/2024 DIABETES EYE EXAM Routine 03/22/2024 ANNUAL BMP BLOOD TEST Routine 01/28/2024 URINE ALBUMIN CREATININE RATIO Routine 01/27/2024 HEMOGLOBIN A1C Routine 01/27/2024 LIPID PANEL Routine 01/27/2024 DIABETES FOOT EXAM Routine 01/27/2024 DXA BONE DENSITY STUDY 1+ SITS AXIAL SKEL Routine 03/04/2023 2:43 PM EDT Asymptomatic menopausal state HM COLONOSCOPY Routine 03/24/2016 from Last 3 Months or Most Recently Relevant to Health Maintenance Results * MG Mammo Digital Screening w Shon bilat (03/20/2025 8:22 AM EDT) Anatomical Region Laterality Modality Breast Bilateral Mammography 03/21/2025 11:1 0 AM EDT Impressions 03/21/2025 11:21 AM EDT Benign. BI-RADS CATEGORY: 1 - NEGATIVE RECOMMENDATION: Screening bilateral mammogram is recommended in 1 year. Mammo Location: [facility], [address] [place] [address], [facility], . -------- FINAL REPORT -------- Dictated By: Lucille Greene Dictated Date: 03/21/2025 11:10 ET Assigned Physician: Lucille Greene Reviewed and Electronically Signed By: Lucille Greene Signed Date: 03/21/2025 11:21 ET Workstation ID: [id number] Transcribed By: Self Edit Transcribed Date: 03/21/2025 11:10 ET Narrative 03/21/2025 11:21 AM EDT CLINICAL: 69 years old, Female, routine annual exam. COMPARISON: Mammograms dating back to 08/13/2020 with most recent of 03/10/2024. TECHNIQUE: Bilateral MLO and CC views were obtained digitally with 3-D mammogram (digital breast tomosynthesis). Computer-aided detection was utilized in evaluation of this exam (CAD). FINDINGS: There is no evidence of suspicious mass or architectural distortion. No worrisome calcifications are evident. There has been no significant change from prior exam(s). BREAST DENSITY: B - There are scattered areas of fibroglandular density. Procedure Note Lucille Greene MD - 03/21/2025 CLINICAL: 69 years old, Female, routine annual exam. COMPARISON: Mammograms dating back to 08/13/2020 with most recent of03/10/2024. TECHNIQUE: Bilateral MLO and CC views were obtained digitally with 3-Dmammogram (digital breast tomosynthesis). Computer-aided detection wasutilized in evaluation of this exam (CAD). FINDINGS: There is no evidence of suspicious mass or architectural distortion. Noworrisome calcifications are evident. There has been no significantchange from prior exam(s). BREAST DENSITY: B - There are scattered areas of fibroglandular density. IMPRESSION: Benign. BI-RADS CATEGORY: 1 - NEGATIVE RECOMMENDATION: Screening bilateral mammogram is recommended in 1 year. Mammo Location: [facility], [address] [place] [address], [id number], . -------- FINAL REPORT -------- Dictated By: Lucille Greene Dictated Date: 03/21/2025 11:10 ET Assigned Physician: Lucille Greene Reviewed and Electronically Signed By: Lucille Greene Signed Date: 03/21/2025 11:21 ET Workstation ID: [id number] Transcribed By: Self Edit Transcribed Date: 03/21/2025 11:10 ET Teena Rosas MD IMG BI PROCEDURES Final Result * Falls Risk Assessment (04/10/2024) Pathologist [facility] Falls Risk Assessment Abstracted Historical Provider HEALTH MAINTENANCE Final Result * Depression Screening (04/10/2024) Depression Screening Abstracted Historical Provider HEALTH MAINTENANCE Final Result * Diabetes Eye Exam (03/22/2024) Pathologist [facility] Diabetes: Annual Retina Eye Exam Abstracted Result [facility] HEALTH MAINTENANCE Final Result * Urine Albumin Creatinine Ratio (01/27/2024) [facility] Urine Albumin Creatinine Ratio Abstracted Result [facility] HEALTH MAINTENANCE Final Result * Diabetes Foot Exam (01/27/2024) [facility] Diabetes: Annual Foot Exam Abstracted Result [facility] HEALTH MAINTENANCE Final Result * Hemoglobin A1c (01/27/2024) [facility] Hemoglobin A1C 6.3 <=6.5 % Blood Venous blood specimen / Unknown Result [facility] LAB BLOOD ORDERABLES Dilma l Result * (ABNORMAL) Lipid panel (01/27/2024) [facility] LDL/HDL Ratio 3 0 - 4 Triglycerides 147 0 - 150 mg/dL Cholesterol 105 0 - 200 mg/dL HDL 37(A) >=40 mg/dL LDL Cholesterol 39 0 - 100 mg/dL Blood Venous blood specimen / Unknown Result [facility] LAB BLOOD ORDERABLES Dilma l Result * DXA BONE DENSITY STUDY 1+ SITS AXIAL SKEL (03/04/2023 2:43 PM EDT) Anatomical Region Laterality Modality Bone Densitometr y 11/19/2022 10:1 2 AM EDT Narrative 03/04/2023 5:44 PM EDT BONE DENSITY Lumbar Spine T-score is -0.7 [...] (World Health Organization Fracture Risk Assessment) [facility] Department of Internal Medicine recommends using National [...] (World Health Organization Fracture Risk Assessment) [facility] Department of Internal Medicine recommendsusing National Osteoporosis [...] over-estimation of fracture risk by FRAX. Radha IBARRA DXA PROCEDURES Final Result * Colonoscopy (03/24/2016) [facility] Signature Colonoscopy Abstracted, no interpretation Anatomical Region Laterality Modality Other Historical Provider HEALTH MAINTENANCE Final Result from Last 3 Months or Most Recently Relevant to Health Maintenance Insurance [facility] MEDICAID Care Teams River Driver Relationship Specialty Start Date End Date Teena Rosas MD [address] [place] [phone] PCP - General Internal Medicine 08/23/24
--- OUTSIDE RECORDS SUMMARY | 2025-05-03 09:02 | XMS_ITS | Encounter Summary ---
Author Organization [facility] Address [address] [place] [address] [place] [phone] Phone Care Team Providers Care [facility]eral Home Location Manager Name Role Phone Eloisa Mayes MD Primary Care Provide r Unknown, Unknown Primary Care Provider Teena Mayorga MD Primary Care Prov ider Encounter Details Date Type Department Care Team (Late st Contact Info) Description 05/27/2021 Transcribe Orders [facility] [address] [place] [address] Eloisa Mayes MD [address] [place] [address] [phone] Social History Tobacco Use Types Packs/Day Years Used Date Smoking Tobacco: Never Smokeless Tobacco: Never Alcohol Use Standard Drinks/Week Comments No 0 (1 standard drink = 0.6 oz pur e alcohol) Comments Unknown Sex and Gender Information Value Date Recorded Sex Assigned at Not on file Legal Sex Female 2:49 PM EDT Gender Identity Not on file Sexual Orientation Not on file documented as of this encounter Plan of Treatment Upcoming Encounters Date Type Department Care Team (Late st Contact Info) Description 05/23/2025 8:50 AM EDT Office Visit [facility] [address] [place] [address] Cyril Lama DO [address] [place] [address] 09/13/2025 9:10 AM EST Office Visit [facility] [place] [address] Valerie Armendariz MD, MPH [address] [facility], [address] [place] [phone] [email or web address] documented as of this encounter Visit Diagnoses Not on filedocumented in this encounter Care Teams Funeral Home Location Manager Relationship Specialty Start Date End Date Eloisa Mayes MD [address] [place] [phone] PCP - General Internal Medicine 03/22/18 05/25/22 Unknown, Unknown, MD PCP - General 05/26/22 11/23/22 Teena Rosas MD [address] [place] [phone] PCP - General Internal Medicine 11/24/22 documented as of this encounter Additional Source Comments The information contained in this document represents components of the legal health record. It is not the complete legal health record.[facility]
--- OUTSIDE RECORDS SUMMARY | 2025-05-03 09:03 | XMS_ITS | Clinical Summary ---
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 Active traZODone (DESYREL) 50 MG tablet Take 50 mg by mouth nightly at bedtime. Active acetaminophen (TYLENOL) 500 MG tablet Take 500 mg by mouth every 6 (six) hours as needed for pain (specific location in comments). Active aspirin 81 MG EC tablet Take 81 mg by mouth daily. Active isosorbide mononitrate (IMDUR) 60 MG 24 hr tablet Take 60 mg by mouth daily. Active atorvastatin (LIPITOR) 80 MG tablet Active metoprolol succinate (TOPROL-XL) 25 MG 24 hr tablet Take 25 mg by mouth daily. Active blood sugar diagnostic Strp stripsIndicatio ns:Uncontrolled type 2 diabetes mellitus with diabetic polyneuropathy, with long-term current use of insulin 1 each by Miscellaneous route 3 (three) times a day before meals. 400 strip 3 Active insulin pen needles, disposable, 31 gauge x 3/16 NdleIndications :Uncontrolled type 2 diabetes mellitus with diabetic polyneuropathy, with long-term current use of insulin 1 each by Miscellaneous route every morning. 100 each 3 022 Active calcium carb/vit D3/minerals (CALCIUM-VITAMI N D ORAL) Take by mouth. Activ e cyanocobalamin, vitamin B-12, (VITAMIN B-12 ORAL) Take by mouth. Activ e folic acid (FOLVITE) 1 MG tablet Take 1 tablet (1 mg total) by mouth daily. Except the day you take your methotrexate 90 tablet 3 Active inFLIXimab (REMICADE) 100 mg injectionIndica tions:Inflectra first loading doseon 06/02/24 Inject 380 mg into the vein once every 8 weeks. Indications: Inflectra first loading doseon 06/02/24 Active inFLIXimab-dyyb (INFLECTRA) 100 mg injectionIndica tions:rheumatoi d arthritis,first loading dose on 06/02/24 Inject 380 mg into the vein once. Indications: rheumatoid arthritis, first loading dose on 06/02/24 Active BRILINTA 90 mg Tab Take 90 mg by mouth 2 (two) times a day. Active docusate sodium (COLACE) 100 MG capsule Take 100 mg by mouth 2 (two) times a day. Active ascorbic acid, vitamin C, (VITAMIN C) 250 mg Chew Take 250 mg by mouth daily. Active blood-glucose sensor (DEXCOM G7 SENSOR) DeviIndications :Type 2 diabetes mellitus with diabetic polyneuropathy, with long-term current use of insulin USE DIRECTED EVERY 10 DAYS 3 each 11 Active blood-glucose meter,continuou s (DEXCOM G7 CUSTOMS OPENER VERIFIER PACKER) MiscIndications :Type 2 diabetes mellitus with diabetic polyneuropathy, with long-term current use of insulin by Miscellaneous route as needed (Monitor glucose continuously). 1 each 025 Active dulaglutide (TRULICITY) 0.75 mg/0.5 mL subcutaneous injectionIndica tions:Type 2 diabetes mellitus with diabetic polyneuropathy, with long-term current use of insulin Inject 0.5 mL (0.75 mg total) under the skin every 7 days. 6 mL 1 Active insulin degludec U-100 (TRESIBA) injection penIndications: Type 2 diabetes mellitus with diabetic polyneuropathy, with long-term current use of insulin Inject 10 Units under the skin nightly at bedtime. 15 mL 1 025 Active ezetimibe (ZETIA) 10 mg tabletIndicatio ns:Type 2 diabetes mellitus with diabetic polyneuropathy, with long-term current use of insulin,Hyperli pidemia LDL goal <70 Take 1 tablet (10 mg total) by mouth daily. 90 tablet 1 025 Active METHOTREXATE 2.5 MG Oral tabletIndicatio ns:Seropositive rheumatoid arthritis TAKE 8 TABLETS (20 MG TOTAL) BY MOUTH EVERY 7 DAYS. 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 As needed for dry mouth 90 tablet 025 2024 Discontinued Active Problems Problem Noted Date Diagnosed Date Right rotator cuff tendinitis 03/13/2025 Assessment & Plan (03/13/2025 9:56 AM EDT): Longstanding; patient declined intra-articular steroid today due to both concerns for hyperglycemia and absence of pain. 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 Abnormal CXR (chest x-ray) 03/13/2025 Overview (03/13/2025): 04/2024 Lungs: Question mild increased interstitial markings at the lung bases. Question small right nodules measuring 5 mm in between the right anterior third and fourth ribs and 8 mm overlying the right anterior sixth rib. Lungs otherwise clear. Assessment & Plan (03/13/2025 10:00 AM EDT): Patient is asymptomatic; updated plain film requested given baseline findings, biologic DMARD therapy, and seropositive rheumatoid arthritis (question rheumatoid nodules). May ultimately need to obtain CT chest. Encounter for monitoring of infliximab therapy 0 04/27/2024 Overview (03/13/2025): Quant TB neg 04/2024 HBV/HCV serologies nonreactive 12/2023 Assessment & Plan (03/13/2025 9:55 AM EDT): No medication side effects; patient and her daughter are aware to hold both methotrexate and infliximab for fever or any infection. Assessment & Plan (09/12/2024 10:03 AM EST): No symptomatic AEs with loading series of infliximab. CXR 04/2024 findings reviewed and overall not concerning; will repeat on next f/u. Assessment & Plan (04/27/2024 9:26 AM EDT): Common and uncommon AEs of anti-TNF agents briefly discussed and written medication information in Irish provided for patient review. Baseline NITA and TB testing including CXR today. Encounter for methotrexate monitoring 12/28/2023 Overview (12/28/2023): Labs 12/2023 HBV and HCV serologies NR Assessment & Plan (03/13/2025 9:54 AM EDT): No methotrexate side effects; routine monitoring labs are up-to-date. Assessment & Plan (09/12/2024 10:02 AM EST): No symptomatic AEs to methotrexate; routine monitoring labs UTD and will be repeated with next infliximab infusion Assessment & Plan (04/27/2024 9:25 AM EDT): No symptomatic AEs of methotrexate; she is compliant with folic acid. Routine monitoring labs today. Assessment & Plan (12/28/2023 3:49 PM EDT): Common and uncommon methotrexate AEs and precautions d/w patient and her daughter and written information provided for her review. She denies alcohol and is aware that methotrexate can take up to several months to show full efficacy and that she will need regular lab monitoring, including repeat labs after the 1st 4-5 doses. She will contact me with any medication concerns. Effusion of right knee joint 12/23/2023 Overview (09/12/2024): 12/2023 TNCs 1880 no crystals (no intra-articular steroid injection) Plain films bl knees 09/2023 Very mild tricompartment joint space narrowing, right greater than left. Small superior patellar spurring bilaterally at the quadriceps attachment from enthesopathy. Assessment & Plan (09/12/2024 10:04 AM EST): Persistent right knee pain w/o recurrent effusion; patient declined intra- articular steroid injection today. Discussed wall squats for quadriceps strengthening. Assessment & Plan (04/27/2024 9:24 AM EDT): No recurrence Assessment & Plan (12/28/2023 3:47 PM EDT): Only modest symptomatic benefit since recent aspiration Assessment & Plan (12/23/2023 12:30 PM EDT): Right knee aspirate grossly non-inflammatory as detailed in procedure note; no intra-articular steroid injection due to concern for hyperglycemia. Synovial fluid to be sent for formal analysis. Seropositive rheumatoid arthritis 12/23/2023 Overview (09/12/2024): Onset of multiple small / intermediate / large joint pain and swelling 03/2023 Labs 12/2023 anti-CCP 453 RF 182.9 Methotrexate 12/2023 to current Infliximab 05/2024 to current Assessment & Plan (03/13/2025 9:54 AM EDT): Subjectively and objectively well on current regimen of methotrexate plus infliximab every 8 weeks. There is no clinical evidence concerning for extra-articular disease. There is no current indication to modify DMARD regimen. Assessment & Plan (09/12/2024 10:05 AM EST): Subjectively and objectively improved since addition of infliximab though she has had only the loading series and therefore it is premature to fully assess efficacy. Persistent synovitis of right 2nd PIP with other MCP and PIP synovitis now resolved. She is due for 4th infliximab dose, which is the first of the maintenance dosing, and I have entered updated orders in her chart to proceed. Assessment & Plan (04/27/2024 9:25 AM EDT): Persistence of active synovitis of several MCP and PIP joints bl on methotrexate monotherapy; needs addition of anti-TNF agent for adequate disease control. No current e/o extra-articular disease. Discussed less aggressive option of adding hydroxychloroquine given patient's preference to avoid needles but ultimately she is amenable to my recommendation to proceed with more aggressive tx. Assessment & Plan (12/28/2023 3:47 PM EDT): Dx and tx plan d/w patient and her daughter Nathalia today; written information in Irish on both rheumatoid arthritis and methotrexate provided for patient reference. Discussed options to start methotrexate alone or methotrexate plus low dose prednisone; she prefers methotrexate alone to start. Discussed that if methotrexate alone is inadequate we will discuss addition of anti-TNF or other biologic agents. Assessment & Plan (12/28/2023 3:45 PM EDT): >>ASSESSMENT AND PLAN FOR GENERALIZED JOINT PAIN WRITTEN ON 12/23/2023 12:33 PM BY HENOK ESQUEDA MD, MPH Clinical picture concerning for rheumatoid or other inflammatory arthritis though right knee aspirate was grossly non-inflammatory today and there is no prolonged AM stiffness. Relevant records and lab and x-ray findings again requested from referring MD as well as Jona ARROYO today and will be reviewed when available; labs as below including inflammatory markers and HBV/HCV serologies in anticipation of possible methotrexate or other DMARD. Normocytic anemia 12/23/2023 Overview (03/13/2025): Hemoglobin 12.1 (2021) -----> 10.7 (2023) no interval values Latest Reference Range & Units 05/21/22 08:23 12/20/23 08:55 01/28/24 08:48 02/18/24 08:48 04/27/24 09:43 06/02/24 09:09 07/17/24 08:38 11/20/24 08:29 12/06/24 11:13 01/31/25 10:57 Hgb 12.0 - 16.0 g/dL 12.1 10.7 (L) 9.1 (L) 10.1 (L) 9.6 (L) 8.6 (L) 9.9 (L) 9.9 (L) 9.8 (L) 9.6 (L) (L): Data is abnormally low Assessment & Plan (03/13/2025 9:58 AM EDT): Patient reports she is unable to tolerate iron supplementation prescribed by PCP due to abdominal discomfort. She is asymptomatic. Would anticipate improvement in hemoglobin with continued adequate treatment of her underlying rheumatoid arthritis if anemia is secondary only to underlying chronic disease. Assessment & Plan (12/23/2023 12:32 PM EDT): Anemia of chronic disease - DM2 +/- rheumatoid arthritis Elevated total protein 12/22/2023 Assessment & Plan (06/23/2024 8:46 AM EST): There were no monoclonal proteins detected no further workup from my part. Assessment & Plan (12/22/2023 9:01 AM EDT): She has elevated total protein continues to lose weight despite decreasing the dose of Trulicity. Was found to have anemia. Serum calcium corrects to 9.7 GFR is in the normal reference range and albumin is not low nevertheless I will check monoclonal proteins for screening of multiple myeloma. Type 2 diabetes mellitus wit h diabetic polyneuropathy, with long-term current use of insulin 04/21/2018 Assessment & Plan (11/21/2024 9:44 AM EDT): Controlled. Hemoglobin A1c 5.6%. But she is not having any hypoglycemia so we will continue current regimen she should return for follow-up in 6 months. Assessment & Plan (06/23/2024 8:55 AM EST): Control hemoglobin A1c 6.0% we will continue current regimen. Assessment & Plan (12/22/2023 9:00 AM EDT): Control hemoglobin A1c 6.3 GMI is 6.5%. She is barely using Tresiba but she uses it on and off and this is not a good idea as I am decreasing the dose of Tresiba to 10 units asked her to use this and if she continues to have low glucose levels this can be decreased further. She appears to be doing well with Trulicity 0.75 mg weekly so I discontinue the 1.5 and she will continue on 0.75 mg weekly. She will follow-up in 6 months time. Assessment & Plan (06/23/2023 9:57 AM EST): Controlled. Hemoglobin A1c 6.1% unlikely make any changes continue current regimen. She requested continuous glucose monitor and I have prescribed this. Assessment & Plan (11/24/2022 9:05 AM EDT): Controlled. Hemoglobin A1c 5.5% I would not make any changes to her regimen she should repeat lab work again prior to the follow-up visit in 6 months. Assessment & Plan (05/26/2022 9:14 AM EDT): Controlled. Hemoglobin A1c 5.9% continue current regimen as indicated in the HPI. Follow-up in 6 months. Assessment & Plan (11/24/2021 9:26 AM EDT): Controlled. Hemoglobin A1c 5.8% we will continue current medications I would not make any changes to her current regimen. She will follow in 6 months time Assessment & Plan (05/29/2021 9:09 AM EDT): Based on her hemoglobin A1c of 6.0% she appears to be controlled. I have checked a CBC to see if she is anemic but I should check this just to make sure that the hemoglobin A1c is falsely low. Her glucose levels have been higher than before and I am concerned about the rising urine microalbumin creatinine ratio but she is on lisinopril. Presently antibiotic any changes to her regimen for glycemic control. She should obtain hemoglobin A1c and a repeat urine microalbumin in the follow-up visit. Assessment & Plan (11/27/2020 8:50 AM EDT): Controlled. Hemoglobin A1c 6.0% I would not make any changes to her current regimen. She will follow in 6 months time. Assessment & Plan (05/29/2020 3:10 PM EDT): Trolled the hemoglobin A1c 6.3%. I would not make any changes to her regimen she should continue Tresiba 40 units nightly and Trulicity 1.5 mg weekly. She occasionally has a low in the morning but is not consistent sometimes elevated glucose above 180 she states that is not due to dietary intake more due to pain which causes elevated cortisol levels thus hyperglycemia. In any case she has good A1c and her glucose levels on average throughout the day within a good range and I would not make any changes. Assessment & Plan (01/25/2020 9:15 AM EDT): Uncontrolled her hemoglobin A1c is 7.6 which is disappointing because previously she was at 6.0% off insulin but apparently she does require insulin and I have renewed Tresiba 45 units daily and she should continue Trulicity 1.5 mg weekly. I will give him a follow-up appointment in 3 months time so that we can see how she is doing then. Assessment & Plan (10/25/2019 8:58 AM EDT): The patient is not using insulin for 2 to 3 months and her glucose levels quite controlled. She has a hemoglobin A1c of 6.1%. I discontinue Tresiba and NovoLog. She should just continue Trulicity 1.5 mg weekly and continue her diet and exercise as tolerated. Assessment & Plan (04/27/2019 12:44 PM EDT): Controlled. The hemoglobin A1c 6.0% I would not make any changes she should continue on Tresiba U100 45 units nightly, Trulicity 1.5 mg weekly and NovoLog with high carb meals. She will return for follow-up in 6 months and she is doing well. She will have new refills on her medication on the follow-up visit. Assessment & Plan (10/20/2018 8:44 AM EST): Controlled. The hemoglobin A1c decreased from 6.7-6.2%. She had one low glucose of 64 mg/dL, but on the other hand she also has glucose in the 200 range, otherwise her glycemic levels are good I would not change the regimen she should continue with her current regimen. She is doing well overall continues to lose weight and is working out in the gym I will give her a follow-up appointment in 6 months time. Assessment & Plan (07/21/2018 9:06 AM EST): Controlled. The hemoglobin A1c has decreased from 7.5-6.7%. This past week her glucose levels have been within range. Last week she was ill and some of the glucose level were in the 200 range. Based on the hemoglobin A1c in this week's glucose levels I would assume that she is doing well and I will not make any changes to her regimen. I will see her in 3 months time. Assessment & Plan (06/02/2018 9:23 AM EDT): The patient has had improved glycemic control. Is too soon to repeat hemoglobin A1c. Initially I thought that possibly she needs to have the Ana but decreased again but I do not think that this is necessarily true because the lows in the morning and not consistent. She stopped administering NovoLog for most meals but she still needs a little bit of NovoLog for high carbohydrate meals. I told her to administer NovoLog for these type of meals, for light carbohydrate meal she should not administer the NovoLog because she tends to develop hypoglycemia. She should continue Trulicity 1.5 mg as she is tolerating the medications. Assessment & Plan (05/19/2018 8:43 AM EDT): Improve glycemic control since her last visit. The fasting blood glucose on average is 133 she does have some elevated fasting glucose levels in the afternoon she has improved drastically only had one elevated glucose of 262 and she states that she was having back pain and suspect that that was still cost. At this point I am increasing Trulicity to 1.5 mg weekly because she still needs improved glycemic control I will not change the dose of Tresiba or NovoLog administration. However if she has hypoglycemia this may have to be adjusted. Assessment & Plan (05/05/2018 8:45 AM EDT): Uncontrolled. The hemoglobin A1c was last 7.5% average glucose 167 mg/dL. She continues to have low glucose in the morning and sometimes in the afternoon elevated glucose in the evening. She states that she is using NovoLog I still do not know how much NovoLog she is administering she states that this is based on carbohydrate ratio and sensitivity but she did not bring me her insulin dose calculator sheet so I can see what her carbohydrate ratio and sensitivity levels are. In the meantime she does not appear to be doing well she still has postprandial hyperglycemia may be because she is over eating. I will decrease to receive up to 45 units because she continues to have fasting hypoglycemia. I will add Trulicity 0.75 mg weekly which is a GLP 1 agonist. The patient was informed that GLP-1 agonists have four mechanisms of action. It acts as a neurotransmitter acting on the hypothalamus to suppress appetite. It also decreases gastric emptying, so that the patient feels full and won't eat as much thereby improving glycemic levels. It prevents glucagon secretion thereby inhibiting hepatic gluconeogenesis. Lastly, it stimulates insulin secretion after a meal in a glucose dependent and prevents post-prandial hyperglycemia. The patient does not have medullary thyroid carcinoma or history of pancreatitis so it should be safe to use. The patient was also informed that they may experience nausea the first few weeks and this should improve. Other adverse events include vomiting, diarrhea and constipation. Assessment & Plan (04/21/2018 2:02 PM EDT): Uncontrolled. Hemoglobin A1c 7.5%. She is having hypoglycemia in the morning she is getting too much Tarceva I would decrease it from 60 units to 50 units. She is also not using NovoLog with her meals at lunch and dinner and this is apparent by elevated dinner and bedtime glucose levels. She was advised to bring me her log sheet for insulin administration so I can determine what her carbohydrate ratio and sensitivity. She does not like syringes and this may be one of the reasons why she is not a NovoLog. If she does not have adequate control with NovoLog we can consider a GLP-1 agonists. She informs me that she has never had pancreatitis or medullary thyroid carcinoma and she states that she has never tried this type of medication in the past. I do not have her records so I cannot review them to see if she has tried this type of medication previously. Hyperlipidemia LDL goal <70 04/21/2018 Assessment & Plan (11/21/2024 9:44 AM EDT): Controlled. LDL 48 mg/dL continue atorvastatin and ezetimibe. Assessment & Plan (06/23/2024 8:55 AM EST): Controlled LDL 48 mg/dL continue atorvastatin 80. Continue ezetimibe no changes required. Assessment & Plan (12/22/2023 8:59 AM EDT): Controlled. LDL 48 mg/dL continue Zetia continue atorvastatin. No changes. Assessment & Plan (06/23/2023 9:57 AM EST): As per the patient she was turned away from blood draw so I do not have repeat lipid panel she will continue current regimen. Based on last LDL she was controlled. Assessment & Plan (11/24/2022 9:10 AM EDT): Controlled. LDL 58 mg/dL. She does not recall using Zetia just atorvastatin. Her LDL was 58 mg/dL which is a good range but is preferable to have it below 55 mg/dL. I do not know if the patient is mistaken and she just does not recall she never took Zetia but I think is a good idea to take Zetia to bring the LDL to a good range. So I told her that I will prescribe ezetimibe. She should continue atorvastatin 80 mg repeat lipid panel in 6 months. Assessment & Plan (05/26/2022 9:14 AM EDT): Controlled LDL 58 mg/dL on atorvastatin 80 mg no changes required. Assessment & Plan (11/24/2021 8:49 AM EDT): Controlled. LDL 48 mg/dL on atorvastatin. She is due for repeat lipid panel and I requested this again. I will not make any changes to her current medications. Assessment & Plan (05/29/2021 8:53 AM EDT): Controlled. LDL 48 mg/dL on rosuvastatin 40 mg. No changes. Assessment & Plan (11/27/2020 8:41 AM EDT): Based on her last lipid panel her LDL was in the 50s range so is controlled. She is currently on rosuvastatin and should continue this medication. She is due for lipid panel and she should have this done fasting. This has previously been requested. Assessment & Plan (01/25/2020 9:06 AM EDT): Controlled LDL is 57 mg/dL continue rosuvastatin 40 mg no changes. Assessment & Plan (10/25/2019 8:56 AM EDT): Uncontrolled based on reported LDL. I asked the patient to make sure that she is taking rosuvastatin and ezetimibe. If she is not then she has to take it. If she is taking it and her LDL remains elevated she is currently PCSK9 inhibitors. Assessment & Plan (05/05/2018 8:42 AM EDT): Controlled. LDL was 73 mg/dL. She tells me she is taking atorvastatin. She did not bring in the list of medications I do not know the dose of the medication I asked her to bring it in for the follow-up visit. I will not make any changes. Assessment & Plan (04/21/2018 2:03 PM EDT): I do not have a lipid panel. The patient states that she is on atorvastatin, and she does not know the dose.. The LDL should be less than 70 since she has history of coronary artery disease. I requested a lipid panel. Essential hypertension 04/21/2018 Assessment & Plan (05/29/2021 8:52 AM EDT): Controlled. She is on lisinopril. Urine microalbumin creatinine ratio has risen unclear why. Patient states that she was fasting and did not exercise on the day of the collection. He could potentially be worsening glycemic control. Assessment & Plan (11/27/2020 8:40 AM EDT): Controlled on current medications including lisinopril she should continue medications and was advised to obtain urine microalbumin that was previously ordered. Assessment & Plan (01/25/2020 9:07 AM EDT): Controlled. Continue current medications including lisinopril. She has not done urine microalbumin creatinine ratio and she does need to have the study done for this year for monitoring of microalbuminuria. Assessment & Plan (10/25/2019 8:57 AM EDT): Controlled on lisinopril. Will request microalbumin level. Assessment & Plan (05/05/2018 8:43 AM EDT): Controlled. She did not take her blood pressure medications this morning either. She states that when she has an early appointment she forgets to take it. Normally she does take her medications. In any case her blood pressure is controlled at the present time on her current regimen so I will not make any changes Assessment & Plan (04/21/2018 2:05 PM EDT): Uncontrolled. The patient states that she took her medications today she is on lisinopril 40, metoprolol 50 twice daily and isosorbide in the evening. At the present time I asked her to bring in her medications on the follow-up visit so that we can have what she is actually taking. I will not make any changes to her regimen. If her blood pressure remains uncontrolled we can adjust her medications. Encounters Date Type Department Care Team Description 04/08/2025 Refill [facility] Rheumatology [address] [place] [address] Henok Esqueda MD, MPH Med Change Request 03/28/2025 11:00 AM EDT Infusion [facility] [address] [place] [id number] Henok Esqueda MD, MPH Seropositive rheumatoid arthritis (Primary Dx) 03/27/2025 Telephone [facility] [address] [place] [phone] Teena Rosas MD 03/13/2025 9:10 AM EDT Office Visit 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; Abnormal CXR (chest x-ray); Encounter for methotrexate monitoring; Encounter for monitoring of infliximab therapy; Right rotator cuff tendinitis; Normocytic anemia 01/31/2025 11:00 AM EDT Infusion [address] [address] Henok Esqueda MD, MPH Seropositive rheumatoid arthritis (Primary Dx) from Last 3 Months Family History Medical History Relation Comments Diabetes Brother Cancer Father Diabetes Mother Heart attack Mother Coronary artery disease Sister Diabetes Sister Stroke Sister Relation Status Comments Brother Alive Father Mother Sister Alive Social History Tobacco Use Types Packs/Day Years Used Date Smoking Tobacco: Never Smokeless Tobacco: Never Tobacco Cessation:Counseling Given: Not Answered Alcohol Use Standard Drinks/Week Comments No 0 (1 standard drink = 0.6 oz pur e alcohol) Education Answer Date Recorded Are you interested in more education? Not on bonnie e 12/11/2022 Are you concerned about learning? Not on file 12/11/2022 No 12/11/2022 No 12/11/2022 Digital Access Answer Date Recorded No 01/12/2023 No 01/12/2023 Reliable internet access at home? Not on file 01/12/2023 Device with a working camera? Not on file Comments Unknown Sex and Gender Information Value Date Recorded Sex Assigned at Not on file Legal Sex Female 2:49 PM EDT Gender Identity Not on file Sexual Orientation Not on file Last Filed Vital Signs Vital Sign Reading Time Taken Comments Blood Pressure 180/68 03/28/2025 1:21 PM EDT Pulse 61 03/28/2025 1:21 PM EDT Temperature 36.2 C (97.2 F) 03/28/2025 1:21 PM EDT Respiratory Rate 18 03/28/2025 1:21 PM EDT Oxygen Saturation 98% 03/28/2025 1:21 PM EDT Inhaled Oxygen Concentration - - Weight 78.3 kg (172 lb 9.6 oz) 03/13/2025 8:59 A M EDT Height 158.8 cm (5' 2.5 ) 06/23/2024 8:08 AM EST Body Mass Index 31.07 06/23/2024 8:08 AM EST Plan of Treatment Upcoming Encounters Date Type Department Care Team (Late st Contact Info) Description 05/23/2025 8:50 AM EDT Office Visit [facility] [address] [place] [address] Cyril Lama DO [address] [place] [id number] 09/13/2025 9:10 AM EST Office Visit [facility] Rheumatology [address] [place] [address] Henok Esqueda MD, MPH [address] [facility], [address] [place] [address] [email or web address] Health Maintenance Due Date Last Done Comments DEPRESSION SCREENING 1967 ZOSTER VACCINES (1 of 2) 1974 COLOGUARD 2000 COLONOSCOPY 2000 COLORECTAL CANCER SCREENING 2000 FIT TEST 2000 FOBT 2000 SIGMOIDOSCOPY 2000 VIRTUAL COLONOSCOPY 2000 RSV VACCINE (1 - Risk 60-74 years 1-dose series) 2015 DIABETIC EYE EXAM 04/21/2018 OSTEOPOROSIS SCREENING INITIAL (ONE-TIME) 2020 PNEUMOCOCCAL VACCINES (50+ years) (3 of 3 - PCV) 11/12/2022 11/12/2021, 03/23/2014, 03/11/2004 INFLUENZA VACCINE (#1) 2025 2, 07/08/2021, 04/05/2015, Additional history exists COVID-19 VACCINE ( season) 2025 08/01/2021, 11/24/2020, 11/03/2020 HEMOGLOBIN A1C 05/22/2025 11/20/2024, 1103/2024, 01/27/2024, Additional history exists BLOOD PRESSURE 09/28/2025 03/28/2025 CREATININE LEVEL 01/31/2026 01/31/2025, , 07/17/2024, Additional history exists POTASSIUM LEVEL 01/31/2026 01/31/2025, 09/17, 07/17/2024, Additional history exists MAMMOGRAM 03/20/2027 03/20/2025, 03/20/2025 Adult Td,Tdap Booster 10/10/2029 10/10/2019, 004 HEPATITIS C SCREENING Completed 12/23/2023 SMOKING STATUS SCREENING (Once After 26 Yrs) Completed 03/13/2025 HEPATITIS A VACCINES Aged Out No long er eligible based on patient's age to complete this topic HIB VACCINES Aged Out No longer eligi ble based on patient's age to complete this topic MENINGOCOCCAL VACCINES (ACWY) Aged Out No longer eligible based on patient's age to complete this topic MENINGOCOCCAL VACCINES (B) Aged Out N o longer eligible based on patient's age to complete this topic Medical Devices Not on file Procedures Procedure Name Priority Date/Time Associated Diagnosis Comments CBC AND DIFFERENTIAL Routine 03/28/2025 11:01 AM EDT Seropositive rheumatoid arthritis CBC AND DIFFERENTIAL Routine 01/31/2025 10:57 AM EDT Seropositive rheumatoid arthritis COMPREHENSIVE METABOLIC PANEL Routine 01/31/2025 10:57 AM EDT Seropositive rheumatoid arthritis HEMOGLOBIN A1C Routine 11/20/2024 8:29 AM EDT Type 2 diabetes mellitus with diabetic polyneuropathy, with long-term current use of insulin HEPATITIS C ANTIBODY, QUALITATIVE Routine 12/23/2023 12:10 PM EDT Rheumatoid factor positive Generalized joint pain from Last 3 Months or Most Recently Relevant to Health Maintenance Results * (ABNORMAL) CBC and differential (03/28/2025 11:01 AM EDT) Only the most recent of2 resultswithin the time period is included. WBC 5.94 4.00 - 11.00 K/uL [facility] RBC 3.27(L) 4.00 - 5.20 M/uL [facility] HGB 9.7(L) 12.0 - 16.0 g/dL [facility] HCT 31.4(L) 36.0 - 46.0 % [facility] PLT 206 150 - 450 K/uL [facility] MCV 96.0 80.0 - 100.0 fL [facility] MCH 29.7 27.0 - 31.0 pg [facility] MCHC 30.9(L) 32.0 - 36.0 g/dL [facility] RDW 13.5 11.5 - 14.5 % [facility] MPV 9.9 8.4 - 12.0 fL [facility] NRBC 0.00 0.00 /100 WBCs [facility] ABSOLUTE NRBC 0.00 0.00 K/uL [facility] DIFF METHOD Auto [facility] NEUTS 73.2 48.0 - 76.0 % [facility] LYMPHS 13.6(L) 18.0 - 41.0 % [facility] MONOS 10.1 4.0 - 11.0 % [facility] EOS 1.9 0.0 - 5.0 % [facility] BASOS 0.7 0.0 - 1.5 % [facility] Granulocytes, immature (%) 0.5 0.0 - 0.9 % [facility] ABSOLUTE NEUTS 4.35 1.92 - 7.60 K/uL [facility] ABSOLUTE LYMPHS 0.81 0.72 - 4.10 K/uL [facility] ABSOLUTE MONOS 0.60 0.16 - 1.10 K/uL [facility] ABSOLUTE EOS 0.11 0.00 - 0.50 K/uL [facility] ABSOLUTE BASOS 0.04 0.00 - 0.15 K/uL [facility] Granulocytes, immature 0.03 0.00 - 0.09 K/uL [facility] Blood 03/28/2025 11:0 1 AM EDT 03/28/2025 11:21 AM EDT Henok Esqueda MD, MPH LAB BLOOD ORDERABLES Fin al Result Performing Organization Address City/[facility]/ZIP Co de Phone Number [address] [phone] * (ABNORMAL) Comprehensive metabolic panel (01/31/2025 10:57 AM EDT) SODIUM 141 133 - 146 mmol/L [facility] POTASSIUM 4.5 3.3 - 5.1 mmol/L [facility] CHLORIDE 108 96 - 108 mmol/L [facility] CO2 26 21 - 35 mmol/L [facility] BUN 25(H) 6 - 19 mg/dL [facility] CREATININE 0.80 0.5 - 1.5 mg/dL [facility] GLUCOSE 89 70 - 99 mg/dL [facility] ALBUMIN 4.0 3.9 - 4.8 g/dL [facility] TOTAL PROTEIN 7.3 6.5 - 8.0 g/dL [facility] CALCIUM 9.1 8.4 - 10.3 mg/dL [facility] ALKALINE PHOSPHATASE 82 39 - 117 U/L [facility] TOTAL BILIRUBIN 0.5 0.0 - 1.2 mg/dL [facility] AST 24 0 - 37 U/L [facility] ALT 17 0 - 40 U/L [facility] GLOBULIN 3.3 1 - 4.8 g/dL [facility] EGFR 80 >59 mL/min/1.7 3m2 [facility] Comment:Estimated glomerular filtration rate calculated using the CKD-EPI refit equation. ANION GAP 12 10 - 20 mmol/L [facility] 01/31/2025 10:5 7 AM EDT 01/31/2025 11:18 AM EDT Henok Esqueda MD, MPH LAB BLOOD ORDERABLES Fin al Result Performing Organization Address City/[facility]/ZIP Co de Phone Number [address] [place] [address] * Hemoglobin A1c (11/20/2024 8:29 AM EDT) HEMOGLOBIN A1C 5.6 4.3 - 5.8 % [facility] Blood 11/20/2024 8:29 AM EDT 11/20/2024 8:31 AM EDT us Cyril Lama DO LAB BLOOD ORDERABLES Final Resul t [address] [address] * Hepatitis C antibody, qualitative (12/23/2023 12:10 PM EDT) HCV NON-REACTIV E NON-REACTI VE [facility] Blood 12/23/2023 12:1 0 PM EDT 12/23/2023 12:13 PM EDT us Henok Esqueda MD, MPH LAB BLOOD ORDERABLES Fin al Result Performing Organization Address [facility]/ZIP Co de Phone Number [address] [address] from Last 3 Months or Most Recently Relevant to Health Maintenance Insurance MED[place] [id number] [facility] [place] [address] MEDICARE PART A & B [facility] MED[facility] REPL[facility] [place] [id number] MEDICARE PART A & B MEDICARE PART A & B MEDICARE PART A & B MEDICARE REPLACEMENT MEDICARE PART A & B MEDICARE PART A & B MEDICARE REPLACEMENT MEDICARE PART A & B [facility] MEDIC[facility] REPLACEMENT MEDICARE PART A & B [facility] MEDICARE REPLACEMENT Care Teams 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 It is not the complete legal health record.[facility]
--- OUTSIDE RECORDS SUMMARY | 2025-05-03 09:03 | XMS_ITS | Patient Health Record ---
Author Organization [facility] Address [address] [place] [address] Care Team Providers Care Burglar Alarm Superintendent Name Role Phone Gilberto Han Unavailable [phone] Reason For Referral No Information Plan Of Treatment No Information
== END 2025-05-03 08:43 | disposition home or self-care (01) ==
LOC: HO.HCS 08:14
PROVIDERS: PCP Internal Medicine; Visit Provider Internal Medicine Cardiovascular Disease
DX: I25.10 Atherosclerotic heart disease of native coronary artery without angina pectoris (principal); I10 Essential (primary) hypertension
CPT/HCPCS: 93010; 99214; G2211

== ENCOUNTER → 2025-05-03 08:13 | Outpatient (BNVA) | payer OTHER, SELFPAY | PROVIDERS: PCP Internal Medicine; Visit Provider Internal Medicine Cardiovascular Disease | DX: I25.10 Atherosclerotic heart disease of native coronary artery without angina pectoris (principal); I10 Essential (primary) hypertension; R00.1 Bradycardia, unspecified | CPT/HCPCS: 93005; 99212 ==